=== PATIENT | male | born 1965 | race Caucasian/White ===

== ENCOUNTER 2017-01-07 22:03 | Emergency (ER) | payer BC ==
[~2017-01-07 22:03] MED LIST: AMIL5TAB15 PO; ASPEC81 PO; CARV25TA PO; CHOL100010 PO; CTP2 PO; HYDR50TA3 PO; NTRGSL/4 UT; TERA1CAP63 PO
[2017-01-07 22:06] VITALS: TEMP 36.7; Ht 177.8 cm
[2017-01-07] MEDS ORDERED: ASPI-232 PO (22:26)
[2017-01-07] MEDS ORDERED: CHOL1000 PO (22:26)
[2017-01-07] MEDS ORDERED: CLON0.2T PO (22:26)
--- NOTE | 2017-01-07 23:06 | EMERGENCY ROOM VISIT NOTE ---
History First contact with patient: 22:19 Chief Complaint: LEG PAIN,LEG INJURY Stated Complaint: SEVERE SHARP PAIN RIGHT THIGH History of Present Illness The patient is a 51 year old male who presents to the Emergency Room with complaints of Rt Hip pains for a few hrs prior to arrival. 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 Patient however did not feel significant pain until evening of arrival to ED where he had trouble getting up to walk and noticed 4/10 Rt hip pain in addition to some numbness and tingling of Rt foot. Patient reports being nauseous due to pain but it has since resolved. He has not taken any medication for pain. Review of Systems See HPI for pertinent positives & negatives. A total of 10 systems reviewed and were otherwise negative. Past Medical/Surgical History Medical Problems: (1) Chronic Kidney Disease, Stage Iii (Moderate) (2) DVT (deep venous thrombosis) (3) Hypertension Nos (4) Pneumonia Surgical Problems: (1) Aortocoronary Bypass Family History Heart disease Social History Smoking Status: Never Smoker Alcohol Use: none Marital Status: single Housing Status: lives with family Occupation Status: employed Current/Historical Medications Scheduled Amiloride Hcl (Amiloride Hcl), 5 MG PO BID Aspirin (Aspir-81), 1 TAB PO DAILY Carvedilol (Coreg), 25 MG PO BID Cholecalciferol (Vitamin D3), 1 TAB PO DAILY Clonidine Hcl (Catapres), 0.2 MG PO BID Hydrochlorothiazide (Hctz), 50 MG PO QAM Nitroglycerin (Nitrostat), 0.4 MG UT PRN Terazosin Hcl (Hytrin), 10 MG PO HS Allergies Coded Allergies: Hydralazine (Unverified Allergy, Severe, STIFF JOINTS, 01/07/17) Physical Exam Vital Signs Date Time Temp Pulse Resp B/P Pulse Ox O2 Delivery O2 Flow Rate FiO2 01/07/17 23:33 66 16 127/81 98 01/07/17 22:06 36.7 78 18 133/86 97 Room Air Physical Exam GENERAL: alert, well appearing, well nourished, no distress, non-toxic EYE EXAM: normal conjunctiva, PERRL and EOM's grossly intact OROPHARYNX: no exudate, no erythema, lips, buccal mucosa, and tongue normal and mucous membranes are moist NECK: supple, no nuchal rigidity, no adenopathy, non-tender LUNGS: Clear to auscultation. Normal chest wall mechanics HEART: no murmurs, S1 normal and S2 normal ABDOMEN: abdomen soft, non-tender, normo-active bowel sounds, no masses, no rebound or guarding. SKIN: no rashes and no bruising UPPER EXTREMITIES: upper extremities are grossly normal. LOWER EXTREMITIES: mild tenderness at Rt hipl, Rt mid thigh contusion NEURO EXAM: Normal sensorium, cranial nerves II-XII grossly intact, normal speech, no gross weakness of arms, no gross weakness of legs. Gross sensation intact. Medical Decision & Procedures Medical Decision 51 yo with injury to distal femur via hydraulic lift bucket a few day prior to arrival p/w with Rt hip pain Rt Leg pain, Lateral Mid Thigh contusion -comfortable, mild pain, does not want pain medication -XR Femur: No fracture or dislocation on preliminary read by myself and Dr. Marquez -Femur Fracture ruled out with XR Patient discharged with followup to PCP. Impression Primary Impression: Right leg pain Departure Information Dispostion Home / Self-Care Condition GOOD Referrals Artie Chaves MD (PCP) Patient Instructions My [facility] Resident Tracking Resident Involvement: Resident Care Provided Care Provided: Adult ED
--- NOTE | 2017-01-07 23:25 | EMERGENCY ROOM VISIT NOTE ---
History Report prepared by Janey: Justus Stubbs Under the Supervision of: Dr. Eric Hernandes D.O. First contact with patient: 22:19 Chief Complaint: LEG PAIN,LEG INJURY Stated Complaint: SEVERE SHARP PAIN RIGHT THIGH History of Present Illness The patient is a 51 year old male who presents to the Emergency Room with complaints of waxing and waning left upper leg pain beginning several hours prior to arrival. He currently rates his discomfort as a 4/10 in severity. 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 He denies experiencing any discomfort until today. As per family, the patient vomited after an episode of severe pain an hour ago. They note the patient experienced some right foot numbness when the pain in the upper left leg began to subside. The patient notes a history of a DVT. Source of History: patient Onset: several hours MANAGER WORK Position: leg (left upper) Symptom Intensity: 4/10 Timing: constant Associated Symptoms: + numbness (resolved right foot numbness), + vomiting Review of Systems See HPI for pertinent positives & negatives. A total of 10 systems reviewed and were otherwise negative. Past Medical & Surgical Medical Problems: (1) Chronic Kidney Disease, Stage Iii (Moderate) (2) DVT (deep venous thrombosis) (3) Hypertension Nos (4) Pneumonia Surgical Problems: (1) Aortocoronary Bypass Family History Heart disease Social History Smoking Status: Never Smoker Alcohol Use: none Marital Status: single Housing Status: lives with family Occupation Status: employed Current/Historical Medications Scheduled Amiloride Hcl (Amiloride Hcl), 5 MG PO BID Aspirin (Aspir-81), 1 TAB PO DAILY Carvedilol (Coreg), 25 MG PO BID Cholecalciferol (Vitamin D3), 1 TAB PO DAILY Clonidine Hcl (Catapres), 0.2 MG PO BID Hydrochlorothiazide (Hctz), 50 MG PO QAM Nitroglycerin (Nitrostat), 0.4 MG UT PRN Terazosin Hcl (Hytrin), 10 MG PO HS Allergies Coded Allergies: Hydralazine (Unverified Allergy, Severe, STIFF JOINTS, 01/07/17) Physical Exam Vital Signs Date Time Temp Pulse Resp B/P Pulse Ox O2 Delivery O2 Flow Rate FiO2 01/07/17 22:06 36.7 78 18 133/86 97 Room Air Physical Exam CONSTITUTIONAL/VITAL SIGNS: Reviewed / noted above. GENERAL: Non-toxic in appearance. INTEGUMENTARY: Warm, dry, and [place]. HEAD: Normocephalic. EYES: without scleral icterus or trauma. ENT/OROPHARYNX: clear and moist. LYMPHADENOPATHY/NECK: Is supple without lymphadenopathy or meningismus. RESPIRATORY: Lungs clear and equal. CARDIOVASCULAR: Regular rate and rhythm. GI/ABDOMEN: Soft and nontender. No organomegaly or pulsatile mass. No rebound or guarding. Normal bowel sounds. EXTREMITIES: Light ecchymosis to the right mid lateral thigh. No distal edema or calf tenderness. Good distal pulses, motor and sensory function. Warm and well perfused. BACK: No CVA tenderness. NEUROLOGICAL: Intact without focal deficits. PSYCHIATRIC: normal affect. MUSCULOSKELETAL: Normally developed with good muscle tone. Medical Decision & Procedures ER Provider Diagnostic Interpretation: X ray results and stated below per my interpretation. FEMUR XRAY: No fracture or dislocation. ED Course 2235: Patient was evaluated by the Check Writing Machine Operator, Dr. Deven Randhawa. 224: Previous medical records were reviewed. The patient was evaluated in room C12B. A complete history and physical examination was performed. 2325: On reevaluation, the patient is doing well. I discussed the results and findings with the patient. He verbalized agreement of the treatment plan. The patient was discharged home. Medical Decision Differential diagnosis: Etiologies such as fracture, dislocation, neurovascular compromise, compartment syndrome, soft tissue injury, as well as others were entertained. This is a 51-year-old male who presents the ED with a chief complaint of right side pain. The patient injured his right thigh couple of days ago work when a dumping cart struck him in the thigh. The patient has continued discomfort and had some spasmodic pain tonight. He came in for evaluation tonight. His symptoms have improved. The patient has evidence of a light ecchymotic area in his right anterior lateral thigh. This is consistent with his injury and a contusion. There is no evidence of DVT or neurovascular injury distal. An x- ray did not show fracture. The patient was felt to be stable for discharge. Impression Primary Impression: Contusion of thigh, right Scribe Attestation The scribe's documentation has been prepared under my direction and personally reviewed by me in its entirety. I confirm that the note above accurately reflects all work, treatment, procedures, and medical decision making performed by me. Departure Information Dispostion Home / Self-Care Referrals Artie Chaves MD (PCP) Patient Instructions My [facility]
[2017-01-07 23:33] VITALS: BP 127/81; PULSE 66; O2SAT 98
--- NOTE | 2017-01-08 06:09 | DIAGNOSTIC IMAGING REPORT ---
RIGHT FEMUR 2 VIEWS ROUTINE CLINICAL HISTORY: Right femur pain. COMPARISON: None. DISCUSSION: No acute fractures are visualized. There are osteoarthritic changes present within the knee. No destructive lesions are evident. IMPRESSION: No fractures identified. Electronically signed by: Yasmany Sidhu M.D. 01/08/2017 6:07 AM Dictated Date/Time: 01/08/2017 6:06 AM
== END 2017-01-07 23:33 | disposition home or self-care (01) ==
LOC: C.EDB 22:04 → C.EDC 23:33
DX: M25.551 Pain in right hip (principal); S70.11XA Contusion of right thigh, initial encounter; W24.0XXA Contact with lifting devices, not elsewhere classified, initial encounter; Y99.0 Civilian activity done for income or pay; I12.9 Hypertensive chronic kidney disease with stage 1 through stage 4 chronic kidney disease, or unspecified chronic kidney disease; N18.3 Chronic kidney disease, stage 3 (moderate); Z95.1 Presence of aortocoronary bypass graft; Z86.718 Personal history of other venous thrombosis and embolism

== ENCOUNTER 2019-01-07 07:42 | Inpatient (IN) ==
[2019-01-07] MEDS ORDERED: PIPERACILLIN/TAZOBACTAM 4.5 GM/120 ML BAG IV STA (08:22)
[2019-01-07] MEDS ORDERED: SODIUM CHLORIDE 0.9% 500 ML IV SCH (08:30)
[2019-01-07 09:02] LABS: Basophils # (auto) 0.03 K/uL (0-0.2); Basophils % (auto) 0.4 %; Eosinophils # (auto) 0.17 K/uL (0-0.5); Eosinophils % (auto) 2.4 %; Hematocrit (blood only) 32.1 % (42-52); Hemoglobin 10.5 g/dL (14.0-18.0); Immature Granulocytes # (auto) 0.02 K/uL (0.00-0.02); Immature Granulocytes % (auto) 0.3 %; Lymphocytes # (auto) 0.92 K/uL (1.2-3.4); Mean Corpuscular Hgb Conc 32.7 g/dL (32-36); Mean Platelet Volume 9.3 fL (7.4-10.4); Monocytes # (auto) 0.66 K/uL (0.11-0.59); Monocytes % (auto) 9.3 %; Neutrophils # (auto) 5.27 K/uL (1.4-6.5); Neutrophils % (auto) 74.6 %; Platelet Count 208 K/uL (130-400); RDW Coefficient of Variation 16.5 % (11.5-14.5); RDW Standard Deviation 59.3 fL (36.4-46.3); Red Blood Count 3.21 M/uL (4.7-6.1); White Blood Count 7.07 K/uL (4.8-10.8)
[2019-01-07 09:27] LABS: Albumin Globulin Ratio 0.8 (0.9-2); Albumin Level 3.3 gm/dl (3.4-5.0); BUN Creatinine Ratio 7.9 (10-20); Bilirubin,Total 0.4 mg/dl (0.2-1); Calcium 9.1 mg/dl (8.5-10.1); Creatinine Clr Calc Pharmacy 18.7 ml/min; Est GFR (African American) 11.8; Est GFR (Non-African American) 10.2; Potassium 3.9 mmol/L (3.5-5.1); Total Protein 7.3 gm/dl (6.4-8.2)
[2019-01-07] MEDS ORDERED: PIPERACILL/TAZOBAC CONSULT ACTIVE PRN (10:07)
[2019-01-07] MEDS ORDERED: PIPERACILLIN/TAZOBACTAM 4.5 GM in DEXTROSE 5% 100 ML IV STA (10:07)
--- NOTE | 2019-01-07 10:23 | History & Physical Report ---
Date of Service January 07, 2019 Assessment & Plan (1) Cellulitis of left lower extremity: Noted to have cellulitis of the left lower extremity 3 days back Was in the ER with the negative x-ray and was given intravenous Dalvance Follow-up today in the emergency room showed worsening cellulitis He was admitted to hospital for continuation of care of worsening cellulitis No increase in white count and no fever and/or chills We will give Zosyn intravenously now and will not repeat intravenous Dalvance now as because its prolonged half-life. ID consult for further management Present on Admission?: Yes (2) Failure of outpatient treatment: Received intravenous tolerance 3 days ago Cellulitis is worse compared with pretreatment with Dalvance (3) End stage renal disease: Has been in the hemodialysis 3 times a week Next dialysis tomorrow Nephrology consult to continue dialysis (4) CAD (coronary artery disease) of artery bypass graft: History of CAD status post bypass graft and also history of AV fistula Continue with current medications Does not have any acute symptoms Other medical conditions of hypertension, hyperlipidemia, history of gastric ulcer, hyperparathyroidism remains stable We will continue outpatient medications DVT prophylaxis Subcu heparin CODE STATUS Full code History of Present Illness Chief Complaint: Worsening left leg cellulitis Primary Care Provider: Artie Chaves MD He is a 53-year-old obese male with significant past medical history of CAD status post aortocoronary bypass, end-stage renal disease on hemodialysis, history of AV fistula, hypertension, hyperlipidemia hyperparathyroidism secondary and history of drug-induced lupus has been in ER as a follow-up of left leg cellulitis which was treated with intravenous Dalvance 3 days ago. Her leg wounds looked worse with new area of redness and worsening infection as per ER physician's assessment. He complains to have some discomfort in left leg but does not have any swelling in the groin or any fever and/or chills. He is blood counts were unremarkable and he has had hemodialysis yesterday. He denies any chest pain, shortness of breath, palpitation, any abdominal pain, nausea and/or vomiting. He was admitted to medical floor for worsening of left leg cellulitis and a possible failure of intravenous Dalvance. Allergies Allergy/AdvReac Type Severity Reaction Status Date / Time hydralazine Allergy Severe STIFF Unverified 01/07/19 08:52 JOINTS Home Medications Home Medications Medication Instructions Recorded Confirmed Type aspirin [Aspirin Low Dose] 81 mg PO QAM 07/10/18 01/07/19 History carvedilol [Coreg] 50 mg PO BID 07/10/18 01/07/19 History cholecalciferol (vitamin D3) 1,000 unit PO QAM 07/10/18 01/07/19 History [Vitamin D3] clonidine HCl 0.2 mg PO BID 07/10/18 01/07/19 History isosorbide mononitrate 30 mg PO HS 07/10/18 01/07/19 History nitroglycerin [Nitrostat] 1 dose SUBLINGUAL UD PRN 07/10/18 01/07/19 History rosuvastatin [Crestor] 10 mg PO HS 07/10/18 01/07/19 History albuterol sulfate [ProAir HFA] 2 puff INHALATION Q4H PRN 01/02/19 01/07/19 History loratadine 10 mg PO QAM 01/02/19 01/07/19 History losartan 50 mg PO QAM 01/02/19 01/07/19 History omega [id number]-fish oil [Fish Oil] 1 cap PO QAM 01/02/19 01/07/19 History Past Med/Surg History Medical History Anemia CHRONIC; BASELINE HGB 10'S PER CHART REVIEW CAD (coronary artery disease) S/P CABG X 3 (2008) Chronic kidney disease STAGE 5- PLAN FOR FUTURE DIALYSIS; NO PRIOR DIALYSIS Deep vein thrombosis LLE DVT 2016; NO ISSUES SINCE History of gastric ulcer PER RECORDS Hyperlipidemia Hypertension Inflammatory arthritis Myocardial Infarction 2008 Obesity Surgical History H/O eye surgery AN INFANT FOR STRABISMUS History of cardiac cath S/P CABG X 3 (2008)= CASAREZ-LAD, SVG-OM2, SVG-OM3 2017= PATENT BYPASS GRAFTS History of carpal tunnel release LEFT History of colonoscopy History of coronary artery bypass graft S/P CABG X 3 (2008): CASAREZ-LAD, SVG-OM2, SVG-OM3 History of esophagogastroduodenoscopy (EGD) History of herniorrhaphy INGUINAL HERNIA REPAIR History of tonsillectomy Family History Father Family history of diabetes mellitus Social History Preferred Language: Luxembourgish Communication Ability: Effective Beliefs That Will Affect Care: None Current Living Situation: Parent and Significant Other Other Information That Helps Us Care for You: No Feels Safe at Home: Yes Safety Concerns: Feels Safe At This Time Smoking Status: Never smoker Hx Alcohol Use: No Hx Substance Use: No Review of Systems All systems reviewed & are unremarkable except as noted in HPI & below Physical Exam Vital Signs (Past 24 Hours): Last Vital Signs Temp 37 C 01/07/19 07:45 Pulse 79 01/07/19 07:45 Resp 18 01/07/19 07:45 BP 165/97 H 01/07/19 07:45 Pulse Ox 100 01/07/19 07:45 Physical Exam: Lying in bed without any discomfort Constitutional: WD/WN, vitals as above well developed Eyes: PERRL, conjunctivae normal, anicteric sclerae ENMT: external ear and nose normal, oropharynx normal Neck: trachea midline, no thyromegaly Respiratory: normal respiratory effort Auscultation: lungs clear to auscultation bilaterally Cardiovascular: Rate/Rhythm: regular rate and regular rhythm Heart Sounds: normal S1, normal S2 and + murmur (2/6 ejection systolic murmur over precordium) Gastrointestinal (Abdomen): Inspection/Auscultation: abdomen normal to inspection and normal bowel sounds Percussion/Palpation: abdomen soft; abdomen nontender Musculoskeletal: Extremities: + lower extremity abnormal to inspection (Left lower leg including foot has swelling with patches of redness as an picture) Left Neurologic: Alert, awake and oriented x3 Results & Data Laboratory Results Short CBC 01/07/19 Range/Units 08:42 WBC 7.07 (4.8-10.8) K/uL Hgb 10.5 L (14.0-18.0) g/dL Hct 32.1 L (42-52) % Plt Count 208 (130-400) K/uL BMP 01/07/19 08:42 Sodium 137 Potassium 3.9 Chloride 98 Carbon Dioxide 31 BUN 44 H Creatinine 5.76 H* Glucose 102 H Calcium 9.1 Liver Function 01/07/19 Range/Units 08:42 Total Bilirubin 0.4 (0.2-1) mg/dl AST 17 (15-37) U/L ALT 30 (12-78) U/L Alkaline Phosphatase 97 (45-117) U/L Albumin 3.3 L (3.4-5.0) gm/dl Medications Administered Current Inpatient Medications Heparin Sodium (Porcine) (Heparin Sodium (Porcine)) 5,[address] Stop: 02/06/19 13:59 Piperacillin Sod/Tazobactam (Sod 4.5 gm/ Dextrose) 120 mls @ 30 mls/hr IV Q8H STA Stop: 01/07/19 14:06 Miscellaneous Information (Consult) 1 ea N/A UD PRN PRN Reason: Consult Stop: 02/06/19 10:06 Code Status & VTE Plan Code Status Full code
[2019-01-07] MEDS ORDERED: NITROGLYCERIN SL 0.4 MG/TAB TAB SL PRN (11:10)
[2019-01-07] MEDS ORDERED: ALBUTEROL HFA 8 GM INHALER INH PRN (11:10)
[2019-01-07] MEDS ORDERED: HYDROmorphone INJ 0.5 MG/0.5 ML SYR ONE (11:41)
[2019-01-07 12:41] LABS: Prothrombin Time 10.6 Seconds (9.0-12.0)
[2019-01-07] MEDS: ASPIRIN 81 MG ECTAB PO SCH (12:52)
[2019-01-07] MEDS: LOSARTAN POTASSIUM 50 MG TAB PO SCH (12:52)
[2019-01-07] MEDS: CARVEDILOL 25 MG TAB PO SCH ×2 (12:52→20:50)
[2019-01-07] MEDS: cloNIDine HCl 0.1 MG TAB PO SCH ×2 (12:52→20:49)
[2019-01-07] MEDS: HEPARIN SOD 5,000 UNIT/0.5 ML VIAL SQ SCH ×2 (14:25→20:49)
--- NOTE | 2019-01-07 14:38 | Emergency Department Note ---
Entered by Eugenio Quevedo acting as a scribe for History of Present Illness General Chief complaint: Foot Injury/Pain Stated complaint: FOOT PAIN Source: patient History of Present Illness Provider complaint: Left foot rash/pain Onset (ago): week(s) 1 Location: lower extremity and left Pain Consistency: + constant and + intermittent Maximum Pain Intensity: 10 Relieved By: + none Associated symptoms: + diaphoresis, + fever/chills and + rash The patient is a 53 year old male who presents to the Emergency Room with complaints of constant left foot pain and rash that started about a week ago. The patient was here when the symptoms first started and was placed on IV Rocephin and discharged with Keflex and Doxycycline. The patient then returned 3 days ago and received a Dalvance shot and told to follow up 3 days after. Since the shot, his rash and the pain has gotten worse. The patient has also had a subjective fever with intermittent diaphoretic spells and he also had some dry heaving when the symptoms first began. Home Medications Home Medications Medication Instructions Recorded Confirmed Type aspirin [Aspirin Low Dose] 81 mg PO QAM 07/10/18 01/07/19 History carvedilol [Coreg] 50 mg PO BID 07/10/18 01/07/19 History cholecalciferol (vitamin D3) 1,000 unit PO QAM 07/10/18 01/07/19 History [Vitamin D3] clonidine HCl 0.2 mg PO BID 07/10/18 01/07/19 History isosorbide mononitrate 30 mg PO HS 07/10/18 01/07/19 History nitroglycerin [Nitrostat] 1 dose SUBLINGUAL UD PRN 07/10/18 01/07/19 History rosuvastatin [Crestor] 10 mg PO HS 07/10/18 01/07/19 History albuterol sulfate [ProAir HFA] 2 puff INHALATION Q4H PRN 01/02/19 01/07/19 History loratadine 10 mg PO QAM 01/02/19 01/07/19 History losartan 50 mg PO QAM 01/02/19 01/07/19 History omega 1-ymx-shr-fish oil [Fish Oil] 1 cap PO QAM 01/02/19 01/07/19 History Allergies Allergy/AdvReac Type Severity Reaction Status Date / Time hydralazine Allergy Intermediate STIFF Verified 01/07/19 14:01 JOINTS Past Med/Surg History Medical History Anemia CHRONIC; BASELINE HGB 10'S PER CHART REVIEW CAD (coronary artery disease) S/P CABG X 3 (2008) Chronic kidney disease STAGE 5- PLAN FOR FUTURE DIALYSIS; NO PRIOR DIALYSIS Deep vein thrombosis LLE DVT 2016; NO ISSUES SINCE History of gastric ulcer PER RECORDS Hyperlipidemia Hypertension Inflammatory arthritis Myocardial Infarction 2008 Obesity Surgical History H/O eye surgery AN INFANT FOR STRABISMUS History of cardiac cath S/P CABG X 3 (2008)= CASAREZ-LAD, SVG-OM2, SVG-OM3 2016= PATENT BYPASS GRAFTS History of carpal tunnel release LEFT History of colonoscopy History of coronary artery bypass graft S/P CABG X 3 (2008): CASAREZ-LAD, SVG-OM2, SVG-OM3 History of esophagogastroduodenoscopy (EGD) History of herniorrhaphy INGUINAL HERNIA REPAIR History of tonsillectomy Family History Father Family history of diabetes mellitus Social History Preferred Language: Malagasy Communication Ability: Effective Beliefs That Will Affect Care: None Current Living Situation: Parent and Significant Other Other Information That Helps Us Care for You: No Feels Safe at Home: Yes Safety Concerns: Feels Safe At This Time Smoking Status: Never smoker Hx Alcohol Use: No Hx Substance Use: No Review of Systems See HPI for pertinent positives & negatives. and A total of 10 systems reviewed and were otherwise negative Physical Exam Vital Signs Vital Signs - 24 hr 01/07/19 23:46 01/08/19 07:05 01/08/19 14:10 Temperature 36.8 C 36.7 C 37.2 C Temperature Source Oral Oral Oral Pulse Rate Pulse Rate [Right Brachial] 63 Pulse Rate [Right Finger] 79 76 Pulse Rhythm [Right Brachial] Regular Respiratory Rate 18 18 Blood Pressure - Lying 120/74 Blood Pressure Blood Pressure [Right Arm] 154/80 H 154/85 H Blood Pressure Mean [Right Arm] 104 108 Blood Pressure Position Blood Pressure Position [Right Arm] Lying Lying Pulse Oximetry 97 98 Oxygen Delivery Method Room Air Room Air 01/08/19 14:20 01/08/19 14:43 01/08/19 15:00 Temperature Temperature Source Pulse Rate 66 65 65 Pulse Rate [Right Brachial] Pulse Rate [Right Finger] Pulse Rhythm [Right Brachial] Respiratory Rate Blood Pressure - Lying Blood Pressure 129/74 133/81 139/85 Blood Pressure [Right Arm] Blood Pressure Mean [Right Arm] Blood Pressure Position Lying Lying Lying Blood Pressure Position [Right Arm] Pulse Oximetry Oxygen Delivery Method 01/08/19 15:20 01/08/19 15:40 01/08/19 16:00 Temperature Temperature Source Pulse Rate 64 65 66 Pulse Rate [Right Brachial] Pulse Rate [Right Finger] Pulse Rhythm [Right Brachial] Respiratory Rate Blood Pressure - Lying Blood Pressure 144/89 H 149/87 H 158/93 H Blood Pressure [Right Arm] Blood Pressure Mean [Right Arm] Blood Pressure Position Lying Lying Lying Blood Pressure Position [Right Arm] Pulse Oximetry Oxygen Delivery Method Vital signs reviewed. General: Well-appearing 53 year old male, in no significant distress. HEENT: No scleral icterus, PERRLA, neck supple. Atraumatic. Cardiovascular: Regular rate and rhythm, no extra sounds. Pulmonary: Clear to auscultation bilaterally, normal work of breathing. Abdomen: Soft, nontender, nondistended, positive bowel sounds. Musculoskeletal: Atraumatic, no peripheral edema. Neurologic: Patient awake alert and oriented x 3 Skin: Warm. New [id number] rash noted on the medial malleolus of the left ankle. Another rash at [id number] on the lateral aspect of the lower leg. [id number] rash on the dorsum aspect of the left foot. Course 0810: The patient was evaluated in room A12B, and a complete history and physical examination were performed. 0845: I reevaluated the patient and updated him on the treatment plan. 0856: I spoke with Dr. Yvette Solis about the patient's case and he is going to accept him for further evaluation. Consultations Consultation #1: I spoke with Dr. Yvette Solis about the patient's case and he is going to accept him for further evaluation. Time: 08:56 Administered Medications Hydrocodone Bitart/Acetaminophen ([place] 5/325) 1 tab PO Q8H PRN PRN Reason: Pain Stop: 01/22/19 13:05 Last Admin: 01/08/19 13:47 Dose: 1 tab Documented by: [id number] Aspirin (Ecotrin Ectab) [address] [facility] Stop: 02/06/19 11:09 Last Admin: 01/08/19 08:24 Dose: 81 mg Documented by: [id number] Admin: 01/07/19 12:52 Dose: Not Given Documented by: [id number] Carvedilol (Coreg) [address] [facility] Stop: 02/06/19 11:59 Last Admin: 01/08/19 08:24 Dose: 50 mg Documented by: [id number] Admin: 01/07/19 20:50 Dose: 50 mg Documented by: [id number] Admin: 01/07/19 12:52 Dose: Not Given Documented by: [id number] Clonidine HCl (Catapres) 0.[address] [facility] Stop: 02/06/19 11:59 Last Admin: 01/08/19 08:24 Dose: 0.2 mg Documented by: [id number] Admin: 01/07/19 20:49 Dose: 0.2 mg Documented by: [id number] Admin: 01/07/19 12:52 Dose: Not Given Documented by: [id number] Fish Oil ([place]-3 (Purified Fish Oil)) [facility] [place]: 02/07/19 08:59 Last Admin: 01/08/19 08:24 Dose: 1 gm Documented by: [id number] Heparin Sodium (Porcine) (Heparin Sodium (Porcine)) 5,[address] [facility] Stop: 02/06/19 13:59 Last Admin: 01/08/19 12:38 Dose: 5,000 units Documented by: [id number] Cosigned by: [id number] Admin: 01/08/19 05:37 Dose: 5,000 units Documented by: [id number] Cosigned by: [id number] Admin: 01/07/19 20:49 Dose: 5,000 units Documented by: [id number] Cosigned by: [id number] Admin: 01/07/19 14:25 Dose: 5,000 units Documented by: [id number] Cosigned by: [id number] Hydromorphone HCl (Dilaudid) 0.5 mg IV Q3H PRN PRN Reason: Pain Stop: 01/21/19 11:37 Last Admin: 01/08/19 09:35 Dose: 0.5 mg Documented by: [id number] Admin: 01/08/19 05:37 Dose: 0.5 mg Documented by: [id number] Admin: 01/07/19 20:48 Dose: 0.5 mg Documented by: [id number] Admin: 01/07/19 16:37 Dose: 0.5 mg Documented by: [id number] Piperacillin Sod/Tazobactam (Sod 4.5 gm/ Dextrose) 120 mls @ 30 mls/hr IV Q12H [facility]; Protocol Stop: 01/17/19 17:59 Last Infusion: 01/08/19 09:37 Dose: 0 mls/hr Documented by: [id number] Admin: 01/08/19 05:36 Dose: 30 mls/hr Documented by: [id number] Infusion: 01/07/19 22:46 Dose: 0 mls/hr Documented by: [id number] Admin: 01/07/19 18:07 Dose: 30 mls/hr Documented by: [id number] Isosorbide Mononitrate (Imdur Extended Rel) 30 mg PO [facility] Stop: 02/06/19 20:59 Last Admin: 01/07/19 20:49 Dose: 30 mg Documented by: [id number] Lactobacillus Acidophilus (Floranex) 4 [facility] [place]: 02/06/19 16:59 Last Admin: 01/08/19 12:38 Dose: 4 tab Documented by: [id number] Admin: 01/08/19 08:25 Dose: 4 tab Documented by: [id number] Admin: 01/07/19 17:33 Dose: 4 tab Documented by: [id number] Loratadine (Claritin) 10 mg PO [facility] Stop: 02/07/19 08:59 Last Admin: 01/08/19 08:24 Dose: 10 mg Documented by: [id number] Losartan Potassium (Cozaar) 50 mg PO [facility] Stop: 02/06/19 11:09 Last Admin: 01/08/19 08:24 Dose: 50 mg Documented by: [id number] Admin: 01/07/19 12:52 Dose: Not Given Documented by: [id number] Rosuvastatin Calcium (Crestor) 10 mg PO [facility] Stop: 02/06/19 20:59 Last Admin: 01/07/19 20:49 Dose: 10 mg Documented by: [id number] Vitamin D (Vitamin D3) 1,000 units PO [facility] Stop: 02/07/19 08:59 Last Admin: 01/08/19 08:25 Dose: 1,000 units Documented by: [id number] Discontinued Medications Hydromorphone HCl (Dilaudid) Confirm Administered Dose 0.5 mg .ROUTE .STK-MED ONE Stop: 01/07/19 11:42 Last Admin: 01/07/19 11:42 Dose: 0.5 mg Documented by: [id number] Piperacillin Sod/Tazobactam Sod (Zosyn) 4.5 gm in 120 mls @ 200 mls/hr IV NOW STA Stop: 01/07/19 08:57 Last Infusion: 01/07/19 10:42 Dose: 0 mls/hr Documented by: [id number] Admin: 01/07/19 09:39 Dose: 200 mls/hr Documented by: [id number] Sodium Chloride (Nss) 500 mls @ 999 mls/hr IV .Q[address] Stop: 01/07/19 09:00 Last Infusion: 01/07/19 10:42 Dose: 0 mls/hr Documented by: [id number] Admin: 01/07/19 09:39 Dose: 999 mls/hr Documented by: [id number] Medical Decision Making Differential Diagnosis Differential diagnosis includes etiologies such as cellulitis, abscess, MRSA infection, DVT, necrotizing fasciitis, dermatitis, drug eruption, as well as others were entertained. Medical Records Attestation: I reviewed the patient's medical records. Home Medications Current Medication List: was personally reviewed by me Laboratory Data Attestation: I reviewed the patient's lab results. Result diagrams: 01/08/19 05:35 01/08/19 05:35 Lab Results 01/07/19 01/07/19 01/07/19 Range/Units 08:40 08:42 08:42 WBC 7.07 (4.8-10.8) K/uL RBC 3.21 L (4.7-6.1) M/uL Hgb 10.5 L (14.0-18.0) g/dL Hct 32.1 L (42-52) % MCV 100.0 (80-100) fL MCH 32.7 (25-34) pg MCHC 32.7 (32-36) g/dL RDW Std Deviation 59.3 H (36.4-46.3) fL RDW Coeff of Adam 16.5 H (11.5-14.5) % Plt Count 208 (130-400) K/uL MPV 9.3 (7.4-10.4) fL Immature Gran % (Auto) 0.3 % Neut % (Auto) 74.6 % Lymph % (Auto) 13.0 % [place] % (Auto) 9.3 % Eos % (Auto) 2.4 % Baso % (Auto) 0.4 % Immature Gran # (Auto) 0.02 (0.00-0.02) K/uL Neut # (Auto) 5.27 (1.4-6.5) K/uL Lymph # (Auto) 0.92 L (1.2-3.4) K/uL [place] # (Auto) 0.66 H (0.11-0.59) K/uL Eos # (Auto) 0.17 (0-0.5) K/uL Baso # (Auto) 0.03 (0-0.2) K/uL PT 10.6 (9.0-12.0) Seconds INR 1.0 (0.9-1.1) Sodium (136-145) mmol/L Potassium (3.5-5.1) mmol/L Chloride (98-107) mmol/L Carbon Dioxide (21-32) mmol/L Anion Gap (3-11) BUN (7-18) mg/dl Creatinine (0.6-1.4) mg/dl Est Cr Clr Drug Dosing ml/min Est GFR ( Amer) Est GFR (Non-Af Amer) BUN/Creatinine Ratio (10-20) Glucose (70-99) mg/dl Lactate 1.3 (0.4-2.0) mmol/L Calcium (8.5-10.1) mg/dl Magnesium (1.8-2.4) mg/dl Total Bilirubin (0.2-1) mg/dl AST (15-37) U/L ALT (12-78) U/L Alkaline Phosphatase (45-117) U/L Total Protein (6.4-8.2) gm/dl Albumin (3.4-5.0) gm/dl Globulin (2.5-4.0) gm/dl Albumin/Globulin Ratio (0.9-2) 01/07/19 01/08/19 01/08/19 Range/Units 08:42 05:35 05:35 WBC 7.19 (4.8-10.8) K/uL RBC 3.17 L (4.7-6.1) M/uL Hgb 10.2 L (14.0-18.0) g/dL Hct 31.4 L (42-52) % MCV 99.1 (80-100) fL MCH 32.2 (25-34) pg MCHC 32.5 (32-36) g/dL RDW Std Deviation 58.6 H (36.4-46.3) fL RDW Coeff of Adam 16.6 H (11.5-14.5) % Plt Count 216 (130-400) K/uL MPV 9.5 (7.4-10.4) fL Immature Gran % (Auto) 0.4 % Neut % (Auto) 67.9 % Lymph % (Auto) 18.4 % [place] % (Auto) 10.0 % Eos % (Auto) 2.6 % Baso % (Auto) 0.7 % Immature Gran # (Auto) 0.03 H (0.00-0.02) K/uL Neut # (Auto) 4.88 (1.4-6.5) K/uL Lymph # (Auto) 1.32 (1.2-3.4) K/uL [place] # (Auto) 0.72 H (0.11-0.59) K/uL Eos # (Auto) 0.19 (0-0.5) K/uL Baso # (Auto) 0.05 (0-0.2) K/uL PT (9.0-12.0) Seconds INR (0.9-1.1) Sodium 137 138 (136-145) mmol/L Potassium 3.9 4.0 (3.5-5.1) mmol/L Chloride 98 101 (98-107) mmol/L Carbon Dioxide 31 28 (21-32) mmol/L Anion Gap 8.0 9.0 (3-11) BUN 44 H 54 H (7-18) mg/dl Creatinine 5.76 H* 6.54 H* D (0.6-1.4) mg/dl Est Cr Clr Drug Dosing 18.7 16.4 ml/min Est GFR ( Amer) 11.8 10.1 Est GFR (Non-Af Amer) 10.2 8.7 BUN/Creatinine Ratio 7.9 L 8.3 L (10-20) Glucose 102 H 91 (70-99) mg/dl Lactate (0.4-2.0) mmol/L Calcium 9.1 8.7 (8.5-10.1) mg/dl Magnesium 2.1 (1.8-2.4) mg/dl Total Bilirubin 0.4 (0.2-1) mg/dl AST 17 (15-37) U/L ALT 30 (12-78) U/L Alkaline Phosphatase 97 (45-117) U/L Total Protein 7.3 (6.4-8.2) gm/dl Albumin 3.3 L (3.4-5.0) gm/dl Globulin 4.0 (2.5-4.0) gm/dl Albumin/Globulin Ratio 0.8 L (0.9-2) Blood Pressure Blood Pressure Findings: Elevated blood pressure Blood Pressure Disposition: further management by hospitalist MDM Narrative This patient was evaluated and appeared to be in no significant distress. Physical examination is consistent with a left lower extremity cellulitis. Upon my review of the pictures from the initial treatment day, it seems that the patient's cellulitis has progressed. A new spot has developed along the medial malleolus. There is some lymphangitic streaking behind the knee. There is no open wound or drainage. Patient was covered with IV Zosyn. His WBC has improved from several days ago. He is afebrile. Given his multiple comorbidities, his failed initial outpatient treatment and the Dalvance treatment, the patient was discussed with the hospitalist who will evaluate the patient for further management. Impression & Plan Cellulitis of left leg, Failure of outpatient treatment Discharge Plan Visit Data *Final* Discharge Date/Time: 01/07/19 10:58 Chief Complaint: Foot Injury/Pain Stated Complaint: FOOT PAIN ED Provider: Jillian Knox Discharge Problem: Cellulitis of left leg, Failure of outpatient treatment Patient Disposition: Admitted As Inpatient Discharge Instructions Interventions: ED Discharge Assessment Last Done: 01/07/19 10:58 The scribe's documentation has been prepared under my direction and personally reviewed by me in its entirety. I confirm that the note above accurately reflects all work, treatment, procedures, and medical decision making performed by me.
[2019-01-07] MEDS: HYDROmorphone INJ 0.5 MG/0.5 ML SYR IV PRN ×2 (16:37→20:48)
[2019-01-07] MEDS: LACTOBACILLUS ACIDOPHILUS (FLORANEX) TAB PO SCH (17:33)
[2019-01-07] MEDS: PIPERACILLIN/TAZOBACTAM 4.5 GM in DEXTROSE 5% 100 ML IV SCH (18:07)
[2019-01-07] MEDS: ISOSORBIDE MONO EXTENDED REL 30 MG TABCR PO SCH (20:49)
[2019-01-07] MEDS: ROSUVASTATIN CALCIUM 10 MG TAB PO SCH (20:49)
[2019-01-08] MEDS: PIPERACILLIN/TAZOBACTAM 4.5 GM in DEXTROSE 5% 100 ML IV SCH ×2 (05:36→18:53)
[2019-01-08] MEDS: HYDROmorphone INJ 0.5 MG/0.5 ML SYR IV PRN ×2 (05:37→09:35)
[2019-01-08] MEDS: HEPARIN SOD 5,000 UNIT/0.5 ML VIAL SQ SCH ×3 (05:37→21:56)
[2019-01-08 06:26] LABS: Basophils # (auto) 0.05 K/uL (0-0.2); Basophils % (auto) 0.7 %; Eosinophils # (auto) 0.19 K/uL (0-0.5); Eosinophils % (auto) 2.6 %; Hematocrit (blood only) 31.4 % (42-52); Hemoglobin 10.2 g/dL (14.0-18.0); Immature Granulocytes # (auto) 0.03 K/uL (0.00-0.02); Immature Granulocytes % (auto) 0.4 %; Lymphocytes # (auto) 1.32 K/uL (1.2-3.4); Lymphocytes % (auto) 18.4 %; Mean Corpuscular Hgb Conc 32.5 g/dL (32-36); Mean Corpuscular Volume 99.1 fL (80-100); Mean Platelet Volume 9.5 fL (7.4-10.4); Monocytes # (auto) 0.72 K/uL (0.11-0.59); Neutrophils # (auto) 4.88 K/uL (1.4-6.5); Neutrophils % (auto) 67.9 %; Platelet Count 216 K/uL (130-400); RDW Coefficient of Variation 16.6 % (11.5-14.5); RDW Standard Deviation 58.6 fL (36.4-46.3); Red Blood Count 3.17 M/uL (4.7-6.1); White Blood Count 7.19 K/uL (4.8-10.8)
[2019-01-08 06:53] LABS: BUN Creatinine Ratio 8.3 (10-20); Calcium 8.7 mg/dl (8.5-10.1); Creatinine Clr Calc Pharmacy 16.4 ml/min; Est GFR (African American) 10.1; Est GFR (Non-African American) 8.7; Magnesium 2.1 mg/dl (1.8-2.4)
[2019-01-08] MEDS: LORATADINE 10 MG TAB PO SCH (08:24)
[2019-01-08] MEDS: OMEGA-3 (PURIFIED FISH OIL) 1 GM CAP PO SCH (08:24)
[2019-01-08] MEDS: ASPIRIN 81 MG ECTAB PO SCH (08:24)
[2019-01-08] MEDS: CARVEDILOL 25 MG TAB PO SCH ×2 (08:24→20:46)
[2019-01-08] MEDS: cloNIDine HCl 0.1 MG TAB PO SCH ×2 (08:24→20:46)
[2019-01-08] MEDS: LOSARTAN POTASSIUM 50 MG TAB PO SCH (08:24)
[2019-01-08] MEDS: CHOLECALCIFEROL 1,000 UNITS TAB PO SCH (08:25)
[2019-01-08] MEDS: LACTOBACILLUS ACIDOPHILUS (FLORANEX) TAB PO SCH ×3 (08:25→18:44)
[2019-01-08] MEDS ORDERED: SODIUM CHLORIDE 0.9% 1000ML 1,000 ML IV PRN (08:33)
--- NOTE | 2019-01-08 10:28 | Infectious Disease Consult ---
Date of Consultation January 08, 2019 Assessment & Plan (1) Cellulitis: leg appears to have improved when compared to photo from last week prior to Dalvance in ER. can continue zosyn pending blood cultures, 01/02 cultures remain negative. would suggest second dose of Dalvance upon d/c from hospital. If cultures negative could transitions zosyn to po levaquin (renally dosed) for 14 days. elevate leg to assist with edema. History of Present Illness Attending Physician: Isac Ray MD pt admitted with increased left leg cellulitis. was being treated with keflex and doxy at home, no improvement, came to ER on 01/02, dopplers negative blood culures negative, wbc nml. was given Dalvance and d/c home. He has picture on his cell phone of appearance of left leg at time of Dalvance dose - noted to have significant erythema over ant calf. no open wounds noted on picture. [place] no improvement and returned to ER on 01/07. wbc 7.1, afebrile, creat 6. Was started on zoysn, no previous gram negative coverage. no additional gpc coverage added due to Dalvance dose last week. He denies f/c. denies trauma to area, no new wounds, no bleeding or drainge. no abd pain, no n/v/d, tolerating abx. no cp, sob, cough. states increased swelling in leg, states pain is 10/10 but appears comfortable on exam. able to walk. Allergies Allergy/AdvReac Type Severity Reaction Status Date / Time hydralazine Allergy Intermediate STIFF Verified 01/07/19 14:01 JOINTS Home Medications Home Medications Medication Instructions Recorded Confirmed Type aspirin [Aspirin Low Dose] 81 mg PO QAM 07/10/18 01/07/19 History carvedilol [Coreg] 50 mg PO BID 07/10/18 01/07/19 History cholecalciferol (vitamin D3) 1,000 unit PO QAM 07/10/18 01/07/19 History [Vitamin D3] clonidine HCl 0.2 mg PO BID 07/10/18 01/07/19 History isosorbide mononitrate 30 mg PO HS 07/10/18 01/07/19 History nitroglycerin [Nitrostat] 1 dose SUBLINGUAL UD PRN 07/10/18 01/07/19 History rosuvastatin [Crestor] 10 mg PO HS 07/10/18 01/07/19 History albuterol sulfate [ProAir HFA] 2 puff INHALATION Q4H PRN 01/02/19 01/07/19 History loratadine 10 mg PO QAM 01/02/19 01/07/19 History losartan 50 mg PO QAM 01/02/19 01/07/19 History omega 5-tqy-iyo-fish oil [Fish Oil] 1 cap PO QAM 01/02/19 01/07/19 History Patient History Medical History Anemia CHRONIC; BASELINE HGB 10'S PER CHART REVIEW CAD (coronary artery disease) S/P CABG X 3 (2008) Chronic kidney disease STAGE 5- PLAN FOR FUTURE DIALYSIS; NO PRIOR DIALYSIS Deep vein thrombosis LLE DVT 2016; NO ISSUES SINCE History of gastric ulcer PER RECORDS Hyperlipidemia Hypertension Inflammatory arthritis Myocardial Infarction 2008 Obesity Surgical History H/O eye surgery AN INFANT FOR STRABISMUS History of cardiac cath S/P CABG X 3 (2008)= CASAREZ-LAD, SVG-OM2, SVG-OM3 2016= PATENT BYPASS GRAFTS History of carpal tunnel release LEFT History of colonoscopy History of coronary artery bypass graft S/P CABG X 3 (2008): CASAREZ-LAD, SVG-OM2, SVG-OM3 History of esophagogastroduodenoscopy (EGD) History of herniorrhaphy INGUINAL HERNIA REPAIR History of tonsillectomy Family History Father Family history of diabetes mellitus Social History Preferred Language: Malaysian Communication Ability: Effective Beliefs That Will Affect Care: None Current Living Situation: Parent and Significant Other Other Information That Helps Us Care for You: No Feels Safe at Home: Yes Safety Concerns: Feels Safe At This Time Smoking Status: Never smoker Hx Alcohol Use: No Hx Substance Use: No Review of Systems all remaining ros reviewed and are negative Physical Exam Vital Signs (Past 24 Hours): Last Vital Signs Temp 36.7 C 01/08/19 07:05 Pulse 76 04/08/19 07:05 Resp 18 01/08/19 07:05 BP 154/85 H 01/08/19 07:05 Pulse Ox 98 01/08/19 07:05 Constitutional: WD/WN, vitals as above Eyes: PERRL, conjunctivae normal, anicteric sclerae ENMT: external ear and nose normal, oropharynx normal Neck: normal visual inspection Respiratory: normal respiratory effort, lungs clear to auscultation Cardiovascular: RRR, no murmur, no edema Gastrointestinal (Abdomen): normal bowel sounds, soft, nontender, no hepatosplenomegaly Musculoskeletal: no cyanosis or clubbing, extremities motor strength 5/5 Skin: no rashes, warm and dry left leg with erythema over ant calf, improved from photo on patient's phone. no warmth, nontender. + edema left ankle. no purulent draiange noted Psychiatric: A+Ox3, euthymic affect (1) Cellulitis Laterality: left Site of cellulitis: extremity Site of cellulitis of extremity: lower extremity Qualified Code(s): L03.116 - Cellulitis of left lower limb
--- NOTE | 2019-01-08 10:33 | Nephrology Consultation ---
Date of Consultation January 08, 2019 Assessment & Plan (1) End stage renal disease: 53-year-old gentlemen with end-stage renal disease secondary to hypertensive nephrosclerosis, on hemodialysis Tuesday, Tuesday, Tuesday. Admitted with left lower extremity cellulitis with failed outpatient antibiotic therapy. X-ray left lower extremity is not suggestive of osteomyelitis. Had last dialysis Tuesday, due for dialysis today, currently electrolyte, volume status acceptable. --will schedule for dialysis today for 4 hours with 3 K bath, UF as tolerated to reach his estimated dry weight. --Epogen for hemoglobin less than 10 --continue on renal cap and phosphate binder with meal --avoid IV fluid, continue on renal diet, dose medications for GFR less than 10 --continue management of cellulitis as for primary team and ID recommendation. Will follow Thank you for allowing me to participate in your patient's care. It was a pleasure to see Ed. (2) Cellulitis of left lower extremity: (3) Anemia: (4) Secondary hyperparathyroidism of renal origin: History of Present Illness Reason for Consultation: End-stage renal disease on hemodialysis. Attending Physician: Isac Ray MD History of Present Illness Ed presented to the ER with left lower extremity cellulitis which he has been having for last 1 week, failed outpatient antibiotic therapy. Three days ago he came to ER and received IV antibiotic however over last 2 days his lower extremity cellulitis seems to have worsened. X-ray showed soft tissue swelling but not suggestive of osteomyelitis. Received IV Zosyn and ID was consulted for further evaluation. Currently he is having some pain in left lower extremity but otherwise asymptomatic. No shortness of breath or chest pain. No fever, chills. No leukocytosis. Has end-stage renal disease secondary to hypertensive nephropathy, on dialysis since November 2018, dialysis on Tuesday, Tuesday, Tuesday at [facility] in [place]. Last dialysis was Tuesday, currently volume status, electrolyte acceptable. Due for dialysis today. Has history of coronary artery disease, status post CABG. Allergies Allergy/AdvReac Type Severity Reaction Status Date / Time hydralazine Allergy Intermediate STIFF Verified 01/07/19 14:01 JOINTS Home Medications Home Medications Medication Instructions Recorded Confirmed Type aspirin [Aspirin Low Dose] 81 mg PO QAM 07/10/18 01/07/19 History carvedilol [Coreg] 50 mg PO BID 07/10/18 01/07/19 History cholecalciferol (vitamin D3) 1,000 unit PO QAM 07/10/18 01/07/19 History [Vitamin D3] clonidine HCl 0.2 mg PO BID 07/10/18 01/07/19 History isosorbide mononitrate 30 mg PO HS 07/10/18 01/07/19 History nitroglycerin [Nitrostat] 1 dose SUBLINGUAL UD PRN 07/10/18 01/07/19 History rosuvastatin [Crestor] 10 mg PO HS 07/10/18 01/07/19 History albuterol sulfate [ProAir HFA] 2 puff INHALATION Q4H PRN 01/02/19 01/07/19 History loratadine 10 mg PO QAM 01/02/19 01/07/19 History losartan 50 mg PO QAM 01/02/19 01/07/19 History omega 6-kve-ere-fish oil [Fish Oil] 1 cap PO QAM 01/02/19 01/07/19 History Patient History Medical History Anemia CHRONIC; BASELINE HGB 10'S PER CHART REVIEW CAD (coronary artery disease) S/P CABG X 3 (2008) Chronic kidney disease STAGE 5- PLAN FOR FUTURE DIALYSIS; NO PRIOR DIALYSIS Deep vein thrombosis LLE DVT 2016; NO ISSUES SINCE History of gastric ulcer PER RECORDS Hyperlipidemia Hypertension Inflammatory arthritis Myocardial Infarction 2008 Obesity Surgical History H/O eye surgery AN INFANT FOR STRABISMUS History of cardiac cath S/P CABG X 3 (2008)= CASAREZ-LAD, SVG-OM2, SVG-OM3 2017= PATENT BYPASS GRAFTS History of carpal tunnel release LEFT History of colonoscopy History of coronary artery bypass graft S/P CABG X 3 (2008): CASAREZ-LAD, SVG-OM2, SVG-OM3 History of esophagogastroduodenoscopy (EGD) History of herniorrhaphy INGUINAL HERNIA REPAIR History of tonsillectomy Family History Father Family history of diabetes mellitus Social History Preferred Language: Botswanan Communication Ability: Effective Beliefs That Will Affect Care: None Current Living Situation: Parent and Significant Other Other Information That Helps Us Care for You: No Feels Safe at Home: Yes Safety Concerns: Feels Safe At This Time Smoking Status: Never smoker Hx Alcohol Use: No Hx Substance Use: No Review of Systems Detailed review of system was otherwise unremarkable. Physical Exam Vital Signs (Past 24 Hours): Last Vital Signs Temp 36.7 C 01/08/19 07:05 Pulse 76 01/08/19 07:05 Resp 18 01/08/19 07:05 BP 154/85 H 01/08/19 07:05 Pulse Ox 98 01/08/19 07:05 Physical Exam: GENERAL: Middle-aged male, AAA x 3, pleasant, healthy-appearing, not in any distress. HEENT: Atraumatic, normocephalic. NECK: Supple, no JVD, no carotid bruit appreciated. ENT: No sinus tenderness MOUTH and THROAT: Moist oral mucosa, RESPIRATORY: Normal breathing efforts, clear to auscultation bilaterally, no wheezes or rales. CARDIOVASCULAR: S1, S2 normal, rate rhythm regular. ABDOMEN: Soft, nontender, positive bowel sound. MUSCULOSKELETAL: No CVA tenderness. No joint swelling, erythema or tenderness. Normal range of motion. SKIN: No skin rash EXTREMITY: Left lower extremity with swelling, erythema, warmth and tenderness NEURO: No gross focal neurological deficit, speech fluent. PSYCHIATRY: Normal mood and judgment
[2019-01-08] MEDS ORDERED: TRAMADOL HCL 50 MG TABLET PO PRN (13:06)
[2019-01-08] MEDS: HYDROCODONE/ACETAMOPHEN 5/325MG TAB PO PRN (13:47)
--- NOTE | 2019-01-08 14:59 | Hospitalist Progress Note ---
Date of Service January 08, 2019 Assessment & Plan (1) Cellulitis of left lower extremity: per Dr. Crawford's notes: Noted to have cellulitis of the left lower extremity 3 days back Was in the ER with the negative x-ray and was given intravenous Dalvance Follow-up today in the emergency room showed worsening cellulitis He was admitted to hospital for continuation of care of worsening cellulitis No increase in white count and no fever and/or chills We will give Zosyn intravenously now and will not repeat intravenous Dalvance now as because its prolonged half-life. ID consult for further management -- ID consulted recommend to continue Zosyn recommended Dalvance on discharge day, then Levaquin PO (2) Failure of outpatient treatment: managemente as noted above (3) End stage renal disease: Has been in the hemodialysis 3 times a week Nephrology consult to continue dialysis (4) CAD (coronary artery disease) of artery bypass graft: History of CAD status post bypass graft and also history of AV fistula Continue with current medications Does not have any acute symptoms Other medical conditions of hypertension, hyperlipidemia, history of gastric ulcer, hyperparathyroidism remains stable continue outpatient medications DVT prophylaxis Subcu heparin CODE STATUS Full code Subjective ff up for leg cellulitis, left seen resting in bed, comfortable states left leg pain is improving no fever/chills no chest pain, palpitatons, dizziness, nausea/vomiting denies other symptom Physical Exam Vital Signs (Past 24 Hours): Last Vital Signs Temp 37.2 C 01/08/19 14:10 Pulse 65 01/08/19 14:43 Resp 18 01/08/19 07:05 BP 133/81 01/08/19 14:43 Pulse Ox 98 01/08/19 07:05 Physical Exam: General- oriented x 3, not in distress, speaks in sentences with no effort or accessory muscle use Eyes- anicteric Neck- no JVD Lungs- clear breath sounds bilaterally, no rales/wheezes Heart- normal rate, regular rhythm; no murmurs Abdomen- normal bowel sounds, nondistended, soft, nontender Extremities- left leg: (+) moderate erythema on the left lower leg- anteromedial and dorsum of the foot no pretibial edema, no calf tenderness Neuro- alert, oriented x 3; no gross focal neurologic deficits Skin- warm & dry
[2019-01-08] MEDS: ISOSORBIDE MONO EXTENDED REL 30 MG TABCR PO SCH (20:46)
[2019-01-08] MEDS: ROSUVASTATIN CALCIUM 10 MG TAB PO SCH (20:46)
[2019-01-09] MEDS: HYDROCODONE/ACETAMOPHEN 5/325MG TAB PO PRN ×2 (00:13→09:07)
[2019-01-09] MEDS: PIPERACILLIN/TAZOBACTAM 4.5 GM in DEXTROSE 5% 100 ML IV SCH (06:31)
[2019-01-09] MEDS: HEPARIN SOD 5,000 UNIT/0.5 ML VIAL SQ SCH ×2 (06:32→13:59)
[2019-01-09] MEDS: LORATADINE 10 MG TAB PO SCH (09:04)
[2019-01-09] MEDS: LACTOBACILLUS ACIDOPHILUS (FLORANEX) TAB PO SCH ×2 (09:04→11:52)
[2019-01-09] MEDS: OMEGA-3 (PURIFIED FISH OIL) 1 GM CAP PO SCH (09:05)
[2019-01-09] MEDS: CARVEDILOL 25 MG TAB PO SCH (09:05)
[2019-01-09] MEDS: LOSARTAN POTASSIUM 50 MG TAB PO SCH (09:05)
[2019-01-09] MEDS: CHOLECALCIFEROL 1,000 UNITS TAB PO SCH (09:05)
[2019-01-09] MEDS: cloNIDine HCl 0.1 MG TAB PO SCH (09:05)
[2019-01-09] MEDS: ASPIRIN 81 MG ECTAB PO SCH (09:06)
--- NOTE | 2019-01-09 10:24 | Nephrology Progress Note ---
Date of Service January 09, 2019 Assessment & Plan (1) End stage renal disease: 53-year-old gentlemen with end-stage renal disease secondary to hypertensive nephrosclerosis, on hemodialysis Tuesday, Tuesday, Tuesday. Admitted with left lower extremity cellulitis with failed outpatient antibiotic therapy. X-ray left lower extremity is not suggestive of osteomyelitis. Had last dialysis Tuesday, due for dialysis today, currently electrolyte, volume status acceptable. --had dialysis yesterday is regular schedule, currently blood pressure, electrolyte, volume status acceptable. Next dialysis tomorrow. --Epogen for hemoglobin less than 10 --continue on renal cap and phosphate binder with meal --patient can be discharged any time antibiotic can be switched to orally as recommended by ID Will follow while in hospital Thank you for allowing me to participate in your patient's care. It was a pleasure to see Ed. (2) Cellulitis of left lower extremity: (3) Anemia: (4) Secondary hyperparathyroidism of renal origin: Subjective Ed was seen and examined in his room this morning. Had dialysis yesterday, uneventful, currently otherwise doing well, blood pressure electrolyte acceptable. Left lower extremity cellulitis slightly improved, continued on Zosyn. Blood culture negative. Review of Systems Detailed review of system was otherwise unremarkable except pertinent positive and negative findings mention above in history of present illness. Physical Exam Vital Signs (Past 24 Hours): Last Vital Signs Temp 36.4 C L 01/09/19 07:26 Pulse 65 01/09/19 07:26 Resp 18 01/09/19 07:26 BP 125/78 01/09/19 07:26 Pulse Ox 98 01/09/19 07:26 Constitutional: WD/WN, vitals as above Respiratory: normal respiratory effort, lungs clear to auscultation Cardiovascular: Rate/Rhythm: regular rate and regular rhythm Heart Sounds: normal S1 and normal S2 Skin: Left lower extremity it erythema, warmth and tenderness. Neurologic: moves all extremities and awake Psychiatric: A+Ox3, euthymic affect
[2019-01-09] MEDS ORDERED: POLYETHYLENE (MIRALAX) 17 GM PACK PO PRN (12:15)
[2019-01-09] MEDS ORDERED: AMLODIPINE BESYLATE 5 MG TAB PO ONE (13:20)
--- NOTE | 2019-01-09 14:35 | Hospitalist Progress Note ---
Date of Service January 09, 2019 Assessment & Plan (1) Cellulitis of left lower extremity: per Dr. Crawford's notes: Noted to have cellulitis of the left lower extremity 3 days back Was in the ER with the negative x-ray and was given intravenous Dalvance Follow-up today in the emergency room showed worsening cellulitis He was admitted to hospital for continuation of care of worsening cellulitis No increase in white count and no fever and/or chills We will give Zosyn intravenously now and will not repeat intravenous Dalvance now as because its prolonged half-life. ID consult for further management -- ID consulted- Dr. Joy recommend to continue Zosyn IV -- per Dr. Joy, leg cellulitis improving with Dalvance -- recommend to d/c home on Levaquin x 10 days consulted with Pharmacy, Levaquin 500mg PO one dose to be given prior to discharge, then Levaquin 250mg po every 48 hours starting January 11, 2019 until January 18, 2019 (total of 4 doses). -- ff up with ID Clinic for another Dalvance dose on January 16, 2019 (2) Failure of outpatient treatment: management as noted above (3) End stage renal disease: hemodialysis 3 times a week Nephrology consulted continue dialysis (4) CAD (coronary artery disease) of artery bypass graft: History of CAD status post bypass graft and also history of AV fistula Continue with current medications Does not have any acute symptoms Other medical conditions of hypertension, hyperlipidemia, history of gastric ulcer, hyperparathyroidism remains stable continue outpatient medications DVT prophylaxis Subcu heparin d/c home today ff up with PCP in 3-5 days, per d/c instructions ff up with ID on 01/16/19 Subjective ff up for leg cellulitis, left resting in bed, comfortable not in distress states he feels fine overall less left leg pain no fever/chills states he feels better overall requesting for discharge Physical Exam Vital Signs (Past 24 Hours): Last Vital Signs Temp 36.4 C L 01/09/19 07:26 Pulse 65 01/09/19 13:55 Resp 18 01/09/19 07:26 BP 104/63 01/09/19 13:55 Pulse Ox 98 01/09/19 07:26 Physical Exam: General- oriented x 3, not in distress, speaks in sentences with no effort or accessory muscle use Eyes- anicteric Neck- no JVD Lungs- clear BS BL Heart- normal rate, regular rhythm; no murmurs Abdomen- normal bowel sounds, nondistended, soft, nontender Extremities-left lower leg: less edema, erythema; non tender, no warmth no pretibial edema, no calf tenderness Neuro- alert, oriented x 3; no gross focal neurologic deficits Skin- warm & dry
[2019-01-09] MEDS ORDERED: levoFLOXacin 500 MG TAB PO ONE (14:45)
[2019-01-10] MEDS ORDERED: SODIUM CHLORIDE 0.9% 1000ML 1,000 ML IV PRN (07:00)
--- NOTE | 2019-01-11 16:27 | Discharge Summary ---
Date of Service January 11, 2019 Admission HPI Per Admitting Provider He is a 53-year-old obese male with significant past medical history of CAD status post aortocoronary bypass, end-stage renal disease on hemodialysis, history of AV fistula, hypertension, hyperlipidemia hyperparathyroidism secondary and history of drug-induced lupus has been in ER as a follow-up of left leg cellulitis which was treated with intravenous Dalvance 3 days ago. Her leg wounds looked worse with new area of redness and worsening infection as per ER physician's assessment. He complains to have some discomfort in left leg but does not have any swelling in the groin or any fever and/or chills. He is blood counts were unremarkable and he has had hemodialysis yesterday. He denies any chest pain, shortness of breath, palpitation, any abdominal pain, nausea and/or vomiting. He was admitted to medical floor for worsening of left leg cellulitis and a possible failure of intravenous Dalvance. Admission Exam Per Admitting Provider Vital Signs (Past 24 Hours): Last Vital Signs Temp 37 C 01/07/19 07:45 Pulse 79 01/07/19 07:45 Resp 18 01/07/19 07:45 BP 165/97 H 01/07/19 07:45 Pulse Ox 100 01/07/19 07:45 Physical Exam: Lying in bed without any discomfort Constitutional: WD/WN, vitals as above well developed Eyes: PERRL, conjunctivae normal, anicteric sclerae ENMT: external ear and nose normal, oropharynx normal Neck: trachea midline, no thyromegaly Respiratory: normal respiratory effort Auscultation: lungs clear to auscultation bilaterally Cardiovascular: Rate/Rhythm: regular rate and regular rhythm Heart Sounds: normal S1, normal S2 and + murmur (2/6 ejection systolic murmur over precordium) Gastrointestinal (Abdomen): Inspection/Auscultation: abdomen normal to inspection and normal bowel sounds Percussion/Palpation: abdomen soft; abdomen nontender Musculoskeletal: Extremities: + lower extremity abnormal to inspection (Left lower leg including foot has swelling with patches of redness as an picture) Left Neurologic: Alert, awake and oriented x3 Principal Diagnosis Left Lower Extremity Cellulitis Discharge Exam Vital Signs (Past 24 Hours): Last Vital Signs Temp 36.4 C L 01/09/19 07:26 Pulse 65 01/09/19 13:55 Resp 18 01/09/19 07:26 BP 104/63 01/09/19 13:55 Pulse Ox 98 01/09/19 07:26 Physical Exam: General- oriented x 3, not in distress, speaks in sentences with no effort or accessory muscle use Eyes- anicteric Neck- no JVD Lungs- clear BS BL Heart- normal rate, regular rhythm; no murmurs Abdomen- normal bowel sounds, nondistended, soft, nontender Extremities-left lower leg: less edema, erythema; non tender, no warmth no pretibial edema, no calf tenderness Neuro- alert, oriented x 3; no gross focal neurologic deficits Skin- warm & dry Discharge Data Allergies Allergy/AdvReac Type Severity Reaction Status Date / Time hydralazine Allergy Intermediate STIFF Verified 01/07/19 14:01 JOINTS Consultations 01/07/19 08:58 ED Decision to Admit Stat 01/08/19 08:00 Consult Infectious Diseases Routine Consult Nephrology Stat Hospital Course (1) Cellulitis of left lower extremity: per Dr. Crawford's notes: Noted to have cellulitis of the left lower extremity 3 days back Was in the ER with the negative x-ray and was given intravenous Dalvance Follow-up in the emergency room showed worsening cellulitis He was admitted to hospital for continuation of care of worsening cellulitis No increase in white count and no fever and/or chills given Zosyn intravenously and will not repeat intravenous Dalvance now as because its prolonged half-life. -- ID consulted- Dr. Joy recommend to continue Zosyn IV -- per Dr. Joy, leg cellulitis improving with Dalvance -- recommend to d/c home on Levaquin x 10 days consulted with Pharmacy, Levaquin 500mg PO one dose to be given prior to discharge, then Levaquin 250mg po every 48 hours starting January 11, 2019 until January 18, 2019 (total of 4 doses). -- ff up with ID Clinic for another Dalvance dose on January 16, 2019 (2) Failure of outpatient treatment: management as noted above (3) End stage renal disease: hemodialysis 3 times a week Nephrology consulted continue dialysis (4) CAD (coronary artery disease) of artery bypass graft: History of CAD status post bypass graft and also history of AV fistula Continue with current medications Does not have any acute symptoms Other medical conditions of hypertension, hyperlipidemia, history of gastric ulcer, hyperparathyroidism remains stable continue outpatient medications DVT prophylaxis Subcu heparin d/c home ff up with PCP in 3-5 days, per d/c instructions ff up with ID on 01/16/19 Total Time Total Time Spent Total Time Spent (In Minutes): 35 mins Discharge Plan Discharge Items Patient Disposition: Home - Self-Care Reason For Visit: WORSENING CELULITIS LLL Discharge Diagnosis: LEFT LEG CELLULITIS Discharge Goals: Diagnostic testing and Therapeutic intervention Activity: As commented below Activity Comment: INCREASE ACTIVITY GRADUALLY TOLERATED Lifting: Wait until after follow-up appointment Exercise/Sports: Wait until after follow-up appointment Driving/Machine Use Comment: NO DRIVING Non-emergency contact: Primary Care Provider Call non-emergency contact if: you have any medication questions, your symptoms worsen, your pain is not controlled, your pain is worsening, your pain is concerning for you, your wound has increased redness, your wound has increased drainage and your wound pain has increased Follow-up/Referrals: Artie Tom MD [Primary Care Provider] - Diet: Dialysis Renal and Heart Healthy Addtl Provider Instructions: FOLLOW UP WITH DR. MENDEZ ON SATURDAY JANUARY 12, 2019 AT 10:45AM. (DR. TOM IS NOT AVAILABLE FOR YOUR FOLLOW UP ON TUESDAY). FOLLOW UP WITH INFECTIOUS DISEASE CLINIC FOR ANOTHER DOSE OF DALVANCE ON JANUARY 16, 2019. PLEASE CALL THE CLINIC AT LEAST 3-5 DAYS PRIOR TO JANUARY 16 TO SET UP ARRANGEMENTS. PLEASE CALL PRIMARY CARE PHYSICIAN OR RETURN TO THE ER IMMEDIATELY IF WITH RECURRENCE, WORSENING OF SYMPTOMS. Prescriptions: New tramadol 50 mg tablet 50 mg PO Q12H PRN (Reason: severe pain) Qty: 10 RF: 0 levofloxacin 250 mg tablet 250 mg PO Q48H Qty: 4 RF: 0 Continued losartan 50 mg tablet 50 mg PO QAM RF: 0 albuterol sulfate [ProAir HFA] 90 mcg/actuation HFA aerosol inhaler 2 puff Inhalation Q4H PRN (Reason: Shortness Of Breath Or Wheezing) RF: 0 loratadine 10 mg Tablet 10 mg PO QAM RF: 0 omega 8-iuq-fes-fish oil [Fish Oil] 1,000 mg (120 mg-180 mg) Capsule 1 cap PO QAM RF: 0 carvedilol [Coreg] 25 mg Tablet 50 mg PO BID RF: 0 isosorbide mononitrate 30 mg Tablet Extended Release 24 Hr 30 mg PO HS RF: 0 aspirin [Aspirin Low Dose] 81 mg Tablet,Delayed Release (Dr/Ec) 81 mg PO QAM RF: 0 clonidine HCl 0.2 mg Tablet 0.2 mg PO BID RF: 0 nitroglycerin [Nitrostat] 0.4 mg Tablet, Sublingual 1 dose Sublingual UD PRN (Reason: Chest Pain) RF: 0 cholecalciferol (vitamin D3) [Vitamin D3] 1,000 unit Capsule 1,000 unit PO QAM RF: 0 rosuvastatin [Crestor] 10 mg Tablet 10 mg PO HS RF: 0 Stand-Alone Forms: [facility] Discharge Orders: Discharge Order (Routine); Ordered 01/09/19 Ordered By: Isac Ray Admission Data Admit Date/Time: 01/08/19 09:00 Attending Provider: Isac Ray Admit Provider: Dulce Crawford Primary Care Provider: Artie Tom Other Providers: Dulce Crawford ; Patricia Joy ; Porsha Mitchell Service: Medical Other Interventions: Discharge Summary Assessment (RN) Last Done: 01/09/19 15:05 DC Date/Time DO NOT enter until pt leaves facility: 01/09/19 15:43
== END 2019-01-09 15:43 | disposition home or self-care (01) | DRG 602 ==
LOC: ED 07:42 → 4E 07:42 → SUATTDRO 10:10 → 4E 10:58
DX: E78.5 Hyperlipidemia, unspecified; I25.810 Atherosclerosis of coronary artery bypass graft(s) without angina pectoris; Z68.37 Body mass index [BMI] 37.0-37.9, adult; N18.6 End stage renal disease; Z79.82 Long term (current) use of aspirin; L03.116 Cellulitis of left lower limb; Z79.899 Other long term (current) drug therapy; I25.2 Old myocardial infarction; E66.9 Obesity, unspecified; Z95.1 Presence of aortocoronary bypass graft; N25.81 Secondary hyperparathyroidism of renal origin; Z86.718 Personal history of other venous thrombosis and embolism; Z88.8 Allergy status to other drugs, medicaments and biological substances; I13.11 Hypertensive heart and chronic kidney disease without heart failure, with stage 5 chronic kidney disease, or end stage renal disease; Z99.2 Dependence on renal dialysis

== ENCOUNTER 2020-06-18 17:40 | Observation (INO) ==
--- OUTSIDE RECORDS SUMMARY | 2020-06-18 17:43 | External Medical Summary | Continuity of Care Document ---
:1965 Author Name Radha Murray, Provider Address Unavailable Unavailable , Care Team Providers Name Role Phone Unavailable Unavailable Unavailable Francisco Diop DO Unavailable [email or web address] Problems Aortocoronary bypass status (V45.81) (Z95.1) Class 2 obesity in adult (278.00) (E66.9) Dyslipidemia (272.4) (E78.5) CAD (coronary artery disease) (414.00) (I25.10) Inflammatory arthritis (714.9) (M19.90) Vascular hamartoma (757.32) (Q85.9) Benign hypertension with CKD (chronic kidney disease) stage IV (403.10) (I12.9) Anemia in stage 5 chronic kidney disease , not on chronic dialysis (285.21) (N18.5) Hypertension (401.9) (I10) Secondary hyperparathyroidism, renal (588.81) (N25.81) CKD (chronic kidney disease) stage V requiring chronic dialysis (585.6) (N18.6) Cellulitis of left lower leg (682.6) (L03.116) Allergies and Adverse Reactions hydrALAZINE HCl TABS (Allergy) Reaction: Other Medications ProAir HFA 108 (90 Base) MCG/ACT Inhalat ion Aerosol Solution; INHALE 2 PUFFS EVERY 4 HOURS NEEDED , M.D. 8.5 GM Inhaler Quantity: 1 Refills: 5 Aspirin 81 MG TABS; TAKE 1 TABLET DAILY. , M.D. Refills: 0 Carvedilol 25 MG Oral Tablet; TAKE 1 AND 1/2 TABLETS TWICE D Terri DEL RIO Quantity: 180 Refills: 3 cloNIDine HCl - 0.2 MG Oral Tablet; TAKE 1 TABLET Bedtime DO Francisco Woodward 100 Tablet Bottle Quantity: 1 Refills: 0 Isosorbide Mononitrate ER 30 MG Oral Tab let Extended Release 24 Hour; take 1 tablet by mouth once daily , M.D. Refills: 5 Nitroglycerin 0.4 MG Sublingual Tablet S ublingual; PLACE 1 TABLET UNDER THE TONGUE EVERY 5 MINUTES UP TO 3 DOSES NEEDED FOR CHEST PAIN. , M.D. Refills: 0 Joiner 3 1000 MG Oral Capsule; TAKE 1 CAP BY MOUTH DAILY. , M .D. Refills: 0 Rosuvastatin Calcium 10 MG Oral Tablet; TAKE 1/2 TABLET 3 TI MES A WEEK. , M.D. Refills: 0 Terazosin HCl - 5 MG Oral Capsule; TAKE 1 CAPSULE BY MOUTH O NCE A DAY , M.D. Quantity: 90 Refills: 3 Vitamin D 1000 UNIT CAPS; TAKE 1 CAP DAILY. , M.D. Refills: 0 Loratadine 10 MG Oral Tablet; TAKE 1 TABLET DAILY NEEDED. , M.D. Refills: 0 Calcitriol 0.25 MCG Oral Capsule; TAKE 1 CAPSULE Three a DO Francisco Bingham Start: 09-Aug-2018 Quantity: 24 Refills: 3 Procedures History of coronary artery bypass graft Status: Completed History of cardiac catheterization Statu s: Completed History of carpal tunnel surgery Status: Completed History of colonoscopy Status: Completed History of esophagogastroduodenoscopy St atus: Completed History of eye surgery Status: Completed History of tonsillectomy with adenoidectomy Status: Completed History of Hernia Repair Status: Complet ed Immunizations Flublok Quadrivalent 0.5 ML Intramuscular Solution Pre filled Syringe On: 09-Aug-2018 16:56 Lot #: [id number], [employer] Family History Mother Family history of hypertension (V17.49) (Z82.49) Status: Act tyson Family history of thyroid disease (V18.19) (Z83.49) Status: Active Family history of hyperlipidemia (V18.19) (Z83.438) Status: Active Family history of arthritis (V17.7) (Z82.61) Status: Active Father Family history of hypertension (V17.49) (Z82.49) Status: Act tyson Family history of arthritis (V17.7) (Z82.61) Status: Active Family history of diabetes mellitus (V18.0) (Z83.3) Status: Active Social History - Smoking Status Never smoked tobacco Plan of Treatment Planned Observations Planned Goals not documented Results No Known Results Results not documented Encounters Appointment; Patricia Joy DO 24-Jan-2019 9:30 Encounter Diagnosis: Problem not documented Appointment; Francisco Diop DO 21-Nov-2018 8:45 Encounter Diagnosis: Problem not documented Appointment; [facility] 03-Nov-2018 10:00 Encounter Diagnosis: Problem not documented Appointment; Francisco Diop DO 24-Oct-2018 13:10 Encounter Diagnosis: Problem not documented Appointment; Francisco Diop DO 13-Sep-2018 14:20 Encounter Diagnosis: Problem not documented Appointment; Francisco Diop DO 09-Aug-2018 15:45 Encounter Diagnosis: Problem not documented
--- OUTSIDE RECORDS SUMMARY | 2020-06-18 17:43 | External Medical Summary | Continuity of Care Document ---
:1965 Author Name Radha Murray, Provider Address Unavailable Unavailable , Care Team Providers Name Role Phone Unavailable Unavailable Unavailable Francisco Diop DO Unavailable [email or web address] Problems Anemia in stage 5 chronic kidney disease , not on chronic dialysis (285.21) (N18.5) Hypertension (401.9) (I10) Secondary hyperparathyroidism, renal (588.81) (N25.81) Benign hypertension with CKD (chronic kidney disease) stage IV (403.10) (I12.9) Vascular hamartoma (757.32) (Q85.9) Inflammatory arthritis (714.9) (M19.90) CAD (coronary artery disease) (414.00) (I25.10) Dyslipidemia (272.4) (E78.5) Class 2 obesity in adult (278.00) (E66.9) Aortocoronary bypass status (V45.81) (Z95.1) Cellulitis of left lower leg (682.6) (L03.116) CKD (chronic kidney disease) stage V requiring chronic dialysis (585.6) (N18.6) Allergies and Adverse Reactions hydrALAZINE HCl TABS (Allergy) Reaction: Other Medications Carvedilol 25 MG Oral Tablet; TAKE 1 AND 1/2 TABLETS TWICE D Terri DEL RIO Quantity: 180 Refills: 3 cloNIDine HCl - 0.2 MG Oral Tablet; TAKE 1 TABLET Bedtime DO Francisco Woodward 100 Tablet Bottle Quantity: 1 Refills: 0 Calcitriol 0.25 MCG Oral Capsule; TAKE 1 CAPSULE Three a Wee k DO Francisco Diop Start: 09-Aug-2018 Quantity: 24 Refills: 3 Vitamin D 1000 UNIT CAPS; TAKE 1 CAP DAILY. , M.D. Refills: 0 Terazosin HCl - 5 MG Oral Capsule; TAKE 1 CAPSULE BY MOUTH O NCE A DAY , M.DTita Quantity: 90 Refills: 3 Rosuvastatin Calcium 10 MG Oral Tablet; TAKE 1/2 TABLET 3 TI MES A WEEK. , M.D. Refills: 0 Antelope 3 1000 MG Oral Capsule; TAKE 1 CAP BY MOUTH DAILY. , M .D. Refills: 0 Nitroglycerin 0.4 MG Sublingual Tablet S ublingual; PLACE 1 TABLET UNDER THE TONGUE EVERY 5 MINUTES UP TO 3 DOSES NEEDED FOR CHEST PAIN. , M.D. Refills: 0 Aspirin 81 MG TABS; TAKE 1 TABLET DAILY. , M.D. Refills: 0 Loratadine 10 MG Oral Tablet; TAKE 1 TABLET DAILY NEEDED. , M.D. Refills: 0 ProAir HFA 108 (90 Base) MCG/ACT Inhalat ion Aerosol Solution; INHALE 2 PUFFS EVERY 4 HOURS NEEDED , M.D. 8.5 GM Inhaler Quantity: 1 Refills: 5 Isosorbide Mononitrate ER 30 MG Oral Tab let Extended Release 24 Hour; take 1 tablet by mouth once daily , M.D. Refills: 5 Procedures History of coronary artery bypass graft [...] filled Syringe On: 09-Aug-2018 16:56 Lot #: [id number], [employer] Family History Mother Family history [...] 8:45 Encounter Diagnosis: Problem not documented Appointment; [place] 03-Nov-2018 10:00 Encounter Diagnosis: Problem not documented Appointment; Francisco Diop DO 24-Oct-2018 13:10 Encounter Diagnosis: Problem not documented Appointment; Francisco Diop DO 13-Sep-2018 14:20 Encounter Diagnosis: Problem not documented Appointment; Francisco Diop DO 09-Aug-2018 15:45 Encounter Diagnosis: Problem not documented
[2020-06-18] MEDS ORDERED: SODIUM CHLORIDE 0.9% 250 ML IV ONE (18:35)
[2020-06-18 18:43] LABS: Basophils # (auto) 0.04 K/uL (0-0.2); Basophils % (auto) 0.6 %; Eosinophils # (auto) 0.13 K/uL (0-0.5); Hematocrit (blood only) 36.4 % (42-52); Hemoglobin 11.7 g/dL (14.0-18.0); Immature Granulocytes # (auto) 0.01 K/uL (0.00-0.02); Immature Granulocytes % (auto) 0.2 %; Lymphocytes # (auto) 0.79 K/uL (1.2-3.4); Lymphocytes % (auto) 12.1 %; Mean Corpuscular Hgb Conc 32.1 g/dL (32-36); Mean Corpuscular Volume 102.5 fL (80-100); Mean Platelet Volume 9.9 fL (7.4-10.4); Monocytes # (auto) 0.93 K/uL (0.11-0.59); Monocytes % (auto) 14.3 %; Neutrophils # (auto) 4.61 K/uL (1.4-6.5); Neutrophils % (auto) 70.8 %; Platelet Count 152 K/uL (130-400); RDW Standard Deviation 56.8 fL (36.4-46.3); Red Blood Count 3.55 M/uL (4.7-6.1); White Blood Count 6.51 K/uL (4.8-10.8)
[2020-06-18 18:54] LABS: Partial Thromboplastin Ratio 0.9; Prothrombin Time 10.9 Seconds (9.0-12.0)
[2020-06-18 19:03] LABS: Alanine Aminotransferase 31 U/L (12-78); Albumin Globulin Ratio 0.9 (0.9-2); Albumin Level 4.3 gm/dl (3.4-5.0); Alkaline Phosphatase 146 U/L (45-117); Aspartate Aminotransferase 20 U/L (15-37); Bilirubin,Total 0.8 mg/dl (0.2-1); Blood Urea Nitrogen 21 mg/dl (7-18); Carbon Dioxide 36 mmol/L (21-32); Chloride 95 mmol/L (98-107); Creatinine Clr Calc Pharmacy 19.7 ml/min; Est GFR (Non-African American) 11.2; Globulin 4.9 gm/dl (2.5-4.0); Glucose 88 mg/dl (70-99); Lipase 104 U/L (73-393); Magnesium 2.2 mg/dl (1.8-2.4); Phosphorus 3.2 mg/dl (2.5-4.9); Potassium 4.5 mmol/L (3.5-5.1); Sodium 136 mmol/L (136-145); Total Protein 9.2 gm/dl (6.4-8.2); Troponin I < 0.015 ng/ml (0-0.045)
--- NOTE | 2020-06-18 19:34 | XRay Report ---
XR chest 1V portable HISTORY: 54 years-old Male Chest Pain acute atypical chest pain COMPARISON: Chest radiograph 01/02/2019 TECHNIQUE: Portable AP view of the chest FINDINGS: Cardiac silhouette is upper limits of normal in size. Prior median sternotomy and CABG. There is no p neumothorax, pleural effusion, airspace consolidation or overt pulmonary edema. Degenerative changes of the shoulders and spine. IMPRESSION: No acute process. ACT 112: Negative or not required by law. The above report was generated using voice recognition software. It may contain grammatical, syntax o r spelling errors. Electronically signed by: Teddy Rosenbaum M.D. 06/18/2020 7:33 PM
--- NOTE | 2020-06-18 19:48 | Emergency Department Note ---
Impression & Plan Exertional chest pain, End-stage renal disease (ESRD), Syncope, History of coronary artery bypass graft ED Provider Note NAME: JENNIFER GILES AGE: 54 SEX: M ARRIVES VIA: Walk-In INFORMANT: Patient, ED PROVIDER(S): Lan Waldron MD CHIEF COMPLAINT: Syncope, exertional chest pain. PLAN: Disposition: Admit MEDICAL DECISION MAKING: The patient is a pleasant 54-year-old gentleman with a past medical history of CAD status post CABG, end-stage renal disease on HD on Tuesday who presents emergency department after having syncopal episode following completion of his dialysis which occurs in the setting of the patient reporting exertional chest pain over the past month which resolves with taking his nit roglycerin. He reports he did not mention this to any of his providers until today. Denies fever, cough, congestion, n/v/d. On arrival the patient is chronically ill-appearing but no acute distress, afebrile stable vital signs. EKG without evidence of acute ischemia. CXR negative. WBC and platelets wnl. H/H similar to prior. Chemistry without acidosis. Cr c/w ESRD. LFTs and electrolytes unremarkable. Troponin negative. Given patient's new exertional CP, reasonable to admit for further evaluation. Patient is agreeable with admission. Case was discussed with Dr. Prince, [facility] hospitalist, who will evaluate the patient for admission. Triage Nursing notes reviewed and agree them. Prior medical records reviewed Vital Signs: reviewed and remarkable for no significant abnormalities Differential diagnosis: Vasovagal event, dehydration, infection, hypoglycemia, electrolyte abnormalities, cardiac sources, intracerebral event, pulmonary embolism, seizure, toxicologic, neurologic, as well as other pathologies. ER treatment provided: See below. Diagnostics interpreted by me: ECG: NSR, 79 bpm, no ectopy, incomplete RBBB, nonspecific ST abnormality, no overt ST elevation or depression. Cardiac Monitoring: An order for continuous cardiac monitoring was placed and demonstrated NSR, 79 bpm, no ectopy Laboratory studies: See below Imaging studies: XR chest 1V portable HISTORY: 54 years-old Male Chest Pain acute atypical chest pain COMPARISON: Chest radiograph 01/02/2019 TECHNIQUE: Portable AP view of the chest FINDINGS: Cardiac silhouette is upper limits of normal in size. Prior median sternotomy and CABG. There is no pneumothorax, pleural effusion, airspace consolidation or overt pulmonary edema. Degenerative changes of the shoulders and spine. IMPRESSION: No acute process. ACT 112: Negative or not required by law. Consultation(s): None HPI: The patient is a pleasant 54-year-old gentleman with a past medical history of CAD status post CABG, end-stage renal disease on HD on Tuesday who presents emergency department after having syncopal episode following completion of his dialysis which occurs in the setting of the patient reporting exertional chest pain over the past month which resolves with taking his nitroglycerin. He reports he did not mention this to any of his providers until today. Denies fever, cough, congestion, n/v/d. ROS: See above HPI for pertinent positives & negatives. A total of 10 systems r eviewed and were otherwise negative. PAST MEDICAL HISTORY:See Below PAST SURGICAL HISTORY:See Below FAMILY HISTORY:See Below SOCIAL HISTORY:See Below HOME MEDICATIONS:See Below ALLERGIES:See Below VITALS:See Below PHYSICAL EXAMINATION: GENERAL: Awake, alert, fatigued-appearing, in no distress HENT: Normocephalic, atraumatic. Oropharynx with dry mucous membranes and otherwise unremarkable. EYES: Normal conjunctiva. Sclera non-icteric. NECK: Supple. No nuchal rigidity. FROM. No JVD. RESPIRATORY: Clear to auscultation. CARDIAC: Regular rate, normal rhythm. Extremities warm and well perfused. Pulses equal. Left forearm with AV fistula with palpable bruit. ABDOMEN: Soft, non-distended. No tenderness to palpation. No rebound or guarding. No masses. RECTAL: Deferred. MUSCULOSKELETAL: Chest examination reveals no tenderness. The back is symmetrical on inspection without obvious abnormality. There is no CVA tenderness to palpation. No joint edema. LOWER EXTREMITIES: Calves are equal size bilaterally and non-tender. No edema. No discoloration. NEURO: Normal sensorium. No sensory or motor deficits noted. SKIN: No rash or jaundice noted. Lan Waldron MD Past Med/Surg History Medical History Anemia CHRONIC; BASELINE HGB 10'S PER CHART REVIEW CAD (coronary artery disease) S/P CABG X 3 (2008) Chronic kidney disease STAGE 5- PLAN FOR FUTURE DIALYSIS; NO PRIOR DIALYSIS Deep vein thrombosis LLE DVT 2017; NO ISSUES SINCE History of gastric ulcer PER RECORDS Hyperlipidemia Hypertension Inflammatory arthritis Myocardial Infarction 2008 Obesity Surgical History H/O eye surgery AN INFANT FOR STRABISMUS History of cardiac cath S/P CABG X 3 (2008)= CASAREZ-LAD, SVG-OM2, SVG-OM3 2017= PATENT BYPASS GRAFTS History of carpal tunnel release LEFT History of colonoscopy History of coronary artery bypass graft S/P CABG X 3 (2008): CASAREZ-LAD, SVG-OM2, SVG-OM3 History of esophagogastroduodenoscopy (EGD) History of herniorrhaphy INGUINAL HERNIA REPAIR History of tonsillectomy Family History Father Family history of diabetes mellitus Social History Smoking Status: Never smoker Second Hand Exposure: No; Hx Alcohol Use: No Hx Substance Use: No Preferred Language: Setswana Communication Ability: Effective Visual Impairment: No Limitations Audiology Director Required: No Beliefs That Will Affect Care: None Current Living Situation: Family Other Information That Helps Us Care for You: No Feels Safe at Home: Yes Safety Concerns: Feels Safe At This Time Allergies Allergies Allergy/AdvReac Type Severity Reaction Status Date / Time hydralazine Allergy Intermediate STIFF Verified 06/18/20 19:19 JOINTS Home Meds Home Medications Medication Instructions Recorded Confirmed aspirin [Aspirin Low Dose] 81 mg PO QAM 07/10/18 06/18/20 carvedilol [Coreg] 50 mg PO BID 07/10/18 06/18/20 cholecalciferol (vitamin D3) 1,000 unit PO QAM 07/10/18 06/18/20 [Vitamin D3] nitroglycerin [Nitrostat] 1 dose SUBLINGUAL DIRECTED PRN 07/10/18 06/18/20 rosuvastatin [Crestor] 10 mg PO HS 07/10/18 06/18/20 loratadine 10 mg PO QAM PRN 01/02/19 06/18/20 omega 0-jpt-eib-fish oil [Fish Oil] 1 cap PO QAM 01/02/19 06/18/20 acetaminophen [Tylenol Extra 1,000 mg PO Q8H PRN 01/18/19 06/18/20 Strength] clonidine HCl 0.1 mg PO BID 06/18/20 06/18/20 sucroferric oxyhydroxide [Velphoro] 1,000 mg PO TIDM 06/18/20 06/18/20 Results & Data (ED) Vital Signs Vital Signs - 24 hr 06/18/20 17:51 06/18/20 17:56 Temperature 36.5 C Temperature Source Oral Pulse Rate 80 Respiratory Rate 20 Respiratory Effort / Characteristics Non-Labored Respiratory Depth Normal Blood Pressure 145/91 H Blood Pressure Mean 109 Pulse Oximetry 99 Oxygen Delivery Method Room Air Sepsis Recent Fever Within 48 Hours No Sepsis New/Unexplained Change in Mental Status N/A Sepsis Action Taken by Nursing No Action Required Laboratory Data Attestation: I reviewed the patient's lab results. Result diagrams: 06/18/20 18:05 06/18/20 18:05 Lab Results 06/18/20 06/18/20 06/18/20 Range/Units 18:05 18:05 18:05 WBC 6.51 (4.8-10.8) K/uL RBC 3.55 L (4.7-6.1) M/uL Hgb 11.7 L (14.0-18.0) g/dL Hct 36.4 L (42-52) % MCV 102.5 H (80-100) fL MCH 33.0 (25-34) pg MCHC 32.1 (32-36) g/dL RDW Std Deviation 56.8 H (36.4-46.3) fL RDW Coeff of Adam 16.0 H (11.5-14.5) % Plt Count 152 (130-400) K/uL MPV 9.9 (7.4-10.4) fL Immature Gran % (Auto) 0.2 % Neut % (Auto) 70.8 % Lymph % (Auto) 12.1 % Bacon % (Auto) 14.3 % Eos % (Auto) 2.0 % Baso % (Auto) 0.6 % Neut # (Auto) 4.61 (1.4-6.5) K/uL Lymph # (Auto) 0.79 L (1.2-3.4) K/uL Bacon # (Auto) 0.93 H (0.11-0.59) K/uL Eos # (Auto) 0.13 (0-0.5) K/uL Baso # (Auto) 0.04 (0-0.2) K/uL Immature Gran # (Auto) 0.01 (0.00-0.02) K/uL PT 10.9 (9.0-12.0) Seconds INR 1.0 (0.9-1.1) APTT 26.0 (21.0-31.0) Seconds PTT Ratio 0.9 Sodium 136 (136-145) mmol/L Potassium 4.5 (3.5-5.1) mmol/L Chloride 95 L (98-107) mmol/L Carbon Dioxide 36 H (21-32) mmol/L Anion Gap 5.0 (3-11) BUN 21 H (7-18) mg/dl Creatinine 5.28 H* (0.6-1.4) mg/dl Est Cr Clr Drug Dosing 19.7 ml/min Est GFR ( Amer) 13.0 Est GFR (Non-Af Amer) 11.2 BUN/Creatinine Ratio 4.0 L (10-20) Glucose 88 (70-99) mg/dl Calcium 10.0 (8.5-10.1) mg/dl Phosphorus 3.2 (2.5-4.9) mg/dl Magnesium 2.2 (1.8-2.4) mg/dl Total Bilirubin 0.8 (0.2-1) mg/dl AST 20 (15-37) U/L ALT 31 (12-78) U/L Alkaline Phosphatase 146 H (45-117) U/L Troponin I < 0.015 (0-0.045) ng/ml Total Protein 9.2 H (6.4-8.2) gm/dl Albumin 4.3 (3.4-5.0) gm/dl Globulin 4.9 H (2.5-4.0) gm/dl Albumin/Globulin Ratio 0.9 (0.9-2) Lipase 104 (73-393) U/L TSH 1.590 (0.300-4.500) uIu/ml Administered Medications Carvedilol (Carvedilol 25 Mg Tab) [address] Stop: 07/18/20 22:29 Last Admin: 06/18/20 22:34 Dose: 50 mg Documented by: [id number] Clonidine HCl (Clonidine Hcl 0.1 Mg Tab) 0.[address] Stop: 07/18/20 22:29 Last Admin: 06/18/20 22:34 Dose: 0.1 mg Documented by: [id number] Miscellaneous (Velphoro- Order Awaiting Action) 1 ea N/A QS AVE Stop: 07/19/20 00:00 Last Admin: 06/18/20 23:35 Dose: Not Given Documented by: [id number] Rosuvastatin Calcium (Rosuvastatin Calcium 10 Mg Tab) [address] Stop: 07/18/20 22:29 Last Admin: 06/18/20 23:35 Dose: 10 mg Documented by: [id number] Discontinued Medications Sodium Chloride (Nss) 250 mls @ 999 mls/hr IV .Q16M ONE Stop: 06/18/20 18:50 Last Infusion: 06/18/20 19:34 Dose: 0 mls/hr Documented by: [id number] Admin: 06/18/20 19:14 Dose: 999 mls/hr Documented by: [id number] Blood Pressure Blood Pressure Findings: Normal blood pressure Blood Pressure Disposition: further management by hospitalist Discharge Plan Visit Data Chief Complaint: Syncope Stated Complaint: BLOOD PRESSURE DROPPED, PASSED OUT, PAIN IN ARM ED Provider: Lan Waldron Discharge Problem: Exertional chest pain, End-stage renal disease (ESRD), Syncope, History of coronary artery bypass graft Patient Disposition: Admitted As Inpatient Discharge Instructions Interventions: ED Discharge Assessment Last Done: 06/18/20 21:03 Discharge Problem: Syncope Qualifiers: Syncope type: unspecified Qualified Code(s): R55 - Syncope and collapse
[2020-06-18] MEDS ORDERED: POLYETHYLENE (MIRALAX) 17 GM PACK PO PRN (21:49)
[2020-06-18] MEDS ORDERED: LORATADINE 10 MG TAB PO PRN (21:49)
[2020-06-18] MEDS ORDERED: NITROGLYCERIN SL 0.4 MG/TAB TAB SL PRN ×2 (21:49)
[2020-06-18] MEDS ORDERED: ACETAMINOPHEN 325 MG TAB PO PRN (21:49)
[2020-06-18] MEDS: carvediloL 25 MG TAB PO SCH (22:34)
[2020-06-18] MEDS: cloNIDine HCL 0.1 MG TAB PO SCH (22:34)
--- NOTE | 2020-06-18 22:49 | History and Physical Report ---
DATE OF ADMISSION: 06/18/2020 CHIEF COMPLAINT: Syncope and chest pain. HISTORY OF PRESENT ILLNESS: This is a 54-year-old male with past medical history significant for CAD status post CABG, end-stage renal disease on hemodialysis, hypertension, anemia of chronic kidney disease, history of lupus, history of gastric ulcer, history of hyperlipidemia, history of hyperparathyroidism, obesity, who comes with syncope and chest pain on exertion. The patient gets syncope once every several weeks after dialysis. Today after dialysis, he had a syncope, which lasted for about 1 minute. There was no shaking of the body, no biting of the tongue, no incontinence. When he woke up, he was not confused.He is also having chest pain on exertion for the last several weeks. Walking uphill or any exertion makes him have chest pain in the left side of chest 10/10 in severity, no radiation. No other associated symptoms. The pain gets better with taking rest or taking nitroglycerin. Yesterday, took one nitroglycerin, which helped relieve the pain. He is also getting evaluated for renal transplant and is supposed to get a stress test in coming weeks in anticipation of transplant. The patient is currently in the ER, resting comfortably and hemodynamically stable, currently does not have any chest pain. Denies any dizziness. When he had syncope, there was sweating. Denies any headache, no dizziness, no blurred vision, no earache, no runny nose, no sore throat. Has dry cough for last 2 weeks. Denies any loss of sense of smell or taste. No fever, no chills, no shortness of breath, no nausea, no abdominal pain. His stools are always black because of the medications. No blood in the stools. He makes urine and denies any burning micturitions. No rash. Ambulates without any support. Appetite is okay. ALLERGIES: HYDRALAZINE. PAST MEDICAL HISTORY: As mentioned above. PAST SURGICAL HISTORY: CABG, carpal tunnel surgery, left heart catheterization, colonoscopy, EGDs, repair of detached thigh muscle, tonsillectomy and adenoidectomy, repair of the right inguinal hernia. MEDICATIONS: The patient is on clonidine 0.1 mg p.o. b.i.d., Crestor 10 mg p.o. daily, Coreg 50 mg p.o. b.i.d., Velphoro 500 mg 2 tablets t.i.d. with meals, omega 3 of 1000 mg p.o. daily, albuterol 2 puffs q. 4 hours p.r.n., loratadine 10 mg p.o. daily, nitroglycerin 0.4 mg sublingual p.r.n., aspirin 81 mg p.o. daily, vitamin D 1000 units p.o. daily. FAMILY HISTORY: Significant for father had arthritis, diabetes, hypertension; mother has hypertension, hyperlipidemia, thyroid disorder, arthritis. SOCIAL HISTORY: Single. No smoking, no alcohol, no drug use. REVIEW OF SYSTEMS: As per HPI. Rest of the review of systems negative. PHYSICAL EXAMINATION: GENERAL: The patient is of moderate build, not in acute distress. VITAL SIGNS: Temperature 36.5, pulse 80, respiratory rate 20, blood pressure 145/91, oxygen 99% on room air. HEENT: Pupils equal, round, and reactive to light. Oral mucosa moist. NECK: No JVD, no neck masses, no carotid bruits. CARDIOVASCULAR: S1, S2 heard, regular rate and rhythm, no murmur, no gallop. RESPIRATORY SYSTEM: Normal AP diameter. No accessory muscle use. No wheezing, no crackles. ABDOMEN: Soft, bowel sounds present, nontender. No distention. CENTRAL NERVOUS SYSTEM: Cranial nerves II-XII grossly intact. Nonfocal. EXTREMITIES: No edema, no erythema. LABORATORY DATA: WBC 6.5, hemoglobin 11.7, hematocrit 36.4, platelets 152. PT 10.9, INR 1, APTT 26. Sodium 136, potassium 4.5, chloride 95, bicarbonate 36, BUN 21, creatinine 5.2, serum glucose 88, calcium 10, phosphorus 3.2, magnesium 2.2, total bilirubin 0.8, AST 20, ALT 31, alkaline phosphatase 146. Troponin I less than 0.015. Lipase 1.5. IMAGING DATA: Chest x-ray, no acute findings. EKG: Normal sinus rhythm with a rate of 79, incomplete right bundle branch block, nonspecific ST abnormalities seen. ASSESSMENT AND PLAN: This is a 54-year-old male who presents with chest pain and syncope. 1. Chest pain on exertion, going on for several weeks. Initial EKG and troponin negative. Will follow the serial enzymes, echocardiogram. Keep n.p.o. after midnight and consult cardiology in the [facility] for further recommendation. 2. Syncope. Post dialysis, the patient gets syncope once in a while after dialysis. We will monitor. Follow echocardiogram and await cardiac input. 3. History of coronary artery disease status post coronary artery bypass graft. Continue his home dose of Coreg, aspirin, and statin. We will monitor. 4. End-stage renal disease, on hemodialysis. The patient had dialysis today. Next dialysis on Tuesday. If the patient stays in hospital on Tuesday will consult nephrology for dialysis. He follows with the [facility] nephrology. 5. History of hypertension. Continue his Coreg and clonidine. Will monitor his blood pressure. 6. Hyperlipidemia. Continue his statin. Follow his fasting lipid profile. 7. Anemia of chronic kidney disease. Hemoglobin is 11.7. We will follow the labs. 8. Deep venous thrombosis prophylaxis, sequential compression devices for now. 9. Disposition: Closely observe in the tele floor. Level 1 full code. Expect to discharge home and follow with family doctor. Social service to help with discharge planning. CHRISTIANE
[2020-06-18] MEDS: ROSUVASTATIN CALCIUM 10 MG TAB PO SCH (23:35)
[2020-06-19 05:28] LABS: Basophils # (auto) 0.02 K/uL (0-0.2); Basophils % (auto) 0.4 %; Eosinophils # (auto) 0.17 K/uL (0-0.5); Eosinophils % (auto) 3.3 %; Hematocrit (blood only) 31.5 % (42-52); Hemoglobin 10.3 g/dL (14.0-18.0); Immature Granulocytes # (auto) 0.02 K/uL (0.00-0.02); Immature Granulocytes % (auto) 0.4 %; Lymphocytes # (auto) 0.76 K/uL (1.2-3.4); Lymphocytes % (auto) 14.9 %; Mean Corpuscular Hemoglobin 33.3 pg (25-34); Mean Corpuscular Hgb Conc 32.7 g/dL (32-36); Mean Corpuscular Volume 101.9 fL (80-100); Mean Platelet Volume 9.4 fL (7.4-10.4); Monocytes # (auto) 0.99 K/uL (0.11-0.59); Monocytes % (auto) 19.4 %; Neutrophils # (auto) 3.13 K/uL (1.4-6.5); Neutrophils % (auto) 61.6 %; Platelet Count 136 K/uL (130-400); RDW Coefficient of Variation 16.2 % (11.5-14.5); RDW Standard Deviation 57.8 fL (36.4-46.3); Red Blood Count 3.09 M/uL (4.7-6.1); White Blood Count 5.09 K/uL (4.8-10.8)
[2020-06-19 06:09] LABS: BUN Creatinine Ratio 4.7 (10-20); Blood Urea Nitrogen 32 mg/dl (7-18); Calcium 9.5 mg/dl (8.5-10.1); Carbon Dioxide 35 mmol/L (21-32); Chloride 96 mmol/L (98-107); Chol HDL Ratio 5; Cholesterol 208 mg/dl (0-200); Creatinine Clr Calc Pharmacy 15.3 ml/min; Est GFR (African American) 9.5; Est GFR (Non-African American) 8.2; Glucose 91 mg/dl (70-99); HDL Cholesterol 44 mg/dl; LDL Cholesterol Calculated 122 mg/dl; Magnesium 2.2 mg/dl (1.8-2.4); Potassium 5.1 mmol/L (3.5-5.1); Sodium 135 mmol/L (136-145); Triglycerides 211 mg/dl (0-150); Troponin I < 0.015 ng/ml (0-0.045); VLDL Cholesterol 42 mg/dl
[2020-06-19] MEDS: carvediloL 25 MG TAB PO SCH ×2 (09:32→22:04)
[2020-06-19] MEDS: CHOLECALCIFEROL 1,000 UNITS 25 MCG TAB PO SCH (09:32)
[2020-06-19] MEDS: cloNIDine HCL 0.1 MG TAB PO SCH (09:32)
[2020-06-19] MEDS: ASPIRIN 81 MG ECTAB PO SCH (09:32)
--- NOTE | 2020-06-19 11:56 | Cardiology Consultation ---
Date of Consultation June 19, 2020 Assessment & Plan (1) Syncope: Patient with recurrent episodes of syncope postdialysis and difficulties with labile hypertension. Previously nitrates have been helpful with underlying coronary artery disease and angina but poorly tolerated due to hypotension. Postdialysis hypotension has been a ongoing issue for several months Initial evaluation demonstrates preserved LV systolic function with severe left hypertrophy. EKGs and cardiac enzymes negative for myocardial injury or ischemia Plan: Dobutamine stress echocardiography will be performed today. This was previously scheduled as part of pretransplant evaluation. Depending on findings may consider reduction in carvedilol dosing possible substitution of low-dose amlodipine. This medication pre-dialysis was discontinued due to significant peripheral edema We will follow as course progresses If stress test abnormal patient may warrant repeat diagnostic cardiac catheterization (2) Exertional chest pain: (3) History of coronary artery bypass graft: (4) End-stage renal disease (ESRD): History of Present Illness Reason for Consultation: Syncope postdialysis, chest pressure Requesting Physician: Dr. Lynn Attending Physician: Bassem Lynn MD History of Present Illness Patient is a complex 54-year-old male with ongoing multiple medical issues which include 1. Long-standing severe and labile hypertension. 2. Premature ischemic heart disease status post coronary artery bypass grafting in September 2009 (ACSAREZ to LAD and a SVG to the left circumflex OM1, OM 2) 3. End-stage renal insufficiency with on hemodialysis replacement via left arm fistula 4. Anemia of chronic disease 5. Dyslipidemia with poor tolerance to statin therapy 6. History of gastric ulcer Patient is referred for hospitalization after syncopal event postdialysis yesterday. Patient has been experiencing syncope and near syncope after dialysis for several months. In addition he has been experiencing in the last 2 to 3 weeks chest pressure sensation with ambulation. Symptoms are described as mild but with left shoulder radiation. He has used sublingual nitroglycerin on one occasion He denies fevers chills unexplained infections. Notes no bleeding difficulties. Notes no melena medication dysuria hematuria. Appetite and weight have been generally stable. He still is very active about home and job Initial evaluation since ER presentation demonstrated no ischemia by EKG or cardiac enzyme criteria Allergies Allergy/AdvReac Type Severity Reaction Status Date / Time hydralazine Allergy Intermediate STIFF Verified 06/18/20 19:19 JOINTS Home Medications Home Medications Medication Instructions Recorded Confirmed Type aspirin [Aspirin Low Dose] 81 mg PO QAM 07/10/18 06/18/20 History carvedilol [Coreg] 50 mg PO BID 07/10/18 06/18/20 History cholecalciferol (vitamin D3) 1,000 unit PO QAM 07/10/18 06/18/20 History [Vitamin D3] nitroglycerin [Nitrostat] 1 dose SUBLINGUAL DIRECTED PRN 07/10/18 06/18/20 History rosuvastatin [Crestor] 10 mg PO HS 07/10/18 06/18/20 History loratadine 10 mg PO QAM PRN 01/02/19 06/18/20 History omega [id number]-fish oil [Fish Oil] 1 cap PO QAM 01/02/19 06/18/20 History acetaminophen [Tylenol Extra 1,000 mg PO Q8H PRN 01/18/19 06/18/20 History Strength] clonidine HCl 0.1 mg PO BID 06/18/20 06/18/20 History sucroferric oxyhydroxide [Velphoro] 1,000 mg PO TIDM 06/18/20 06/18/20 History Patient History Medical History Anemia CHRONIC; BASELINE HGB 10'S PER CHART REVIEW CAD (coronary artery disease) S/P CABG X 3 (2008) Chronic kidney disease STAGE 5- PLAN FOR FUTURE DIALYSIS; NO PRIOR DIALYSIS Deep vein thrombosis LLE DVT 2016; NO ISSUES SINCE History of gastric ulcer PER RECORDS Hyperlipidemia Hypertension Inflammatory arthritis Myocardial Infarction 2008 Obesity Surgical History H/O eye surgery AN INFANT FOR STRABISMUS History of cardiac cath S/P CABG X 3 (2008)= CASAREZ-LAD, SVG-OM2, SVG-OM3 2017= PATENT BYPASS GRAFTS History of carpal tunnel release LEFT History of colonoscopy History of coronary artery bypass graft S/P CABG X 3 (2008): CASAREZ-LAD, SVG-OM2, SVG-OM3 History of esophagogastroduodenoscopy (EGD) History of herniorrhaphy INGUINAL HERNIA REPAIR History of tonsillectomy Family History Father Family history of diabetes mellitus Social History Smoking Status: Never smoker Second Hand Exposure: No; Hx Alcohol Use: No Hx Substance Use: No Preferred Language: Danish Communication Ability: Effective Visual Impairment: No Limitations [employer] Required: No Beliefs That Will Affect Care: None marital status: Single Current Living Situation: Family Other Information That Helps Us Care for You: No Feels Safe at Home: Yes Safety Concerns: Feels Safe At This Time Review of Systems Review of Systems: All systems reviewed & are unremarkable except as noted in HPI & below Physical Exam Constitutional: WD/WN, vitals as above Eyes: PERRL ENMT: external ear and nose normal, oropharynx normal Neck: trachea midline, no thyromegaly + thick neck Respiratory: normal respiratory effort, lungs clear to auscultation Cardiovascular: Rate/Rhythm: regular rate and regular rhythm Heart Sounds: normal S1, normal S2 and + murmur (Grade 1/6 systolic); no gallop Palpation: normal PMI Vessels: normal carotid upstroke and radial pulses present; no JVD and no carotid bruit Extremities: + AV fistula; no edema Left arm Gastrointestinal (Abdomen): normal bowel sounds, soft, nontender, no hepatosplenomegaly Musculoskeletal: no cyanosis or clubbing, extremities motor strength 5/5 Skin: no rashes, warm and dry Neurologic: PERRL, EOMI, accommodation nl, no face palsy, no dysarthria Psychiatric: A+Ox3, euthymic affect Results & Data ([facility]) Vital Signs (Past 12 Hours) Vital Signs Temp Pulse Pulse Resp BP Pulse Ox 06/19/20 11:20 37 C 75 18 104/69 95 06/19/20 09:30 81 06/19/20 08:37 37.1 C 71 18 122/73 96 06/19/20 04:04 36.8 C 73 18 120/79 97 Laboratory Results Laboratory Results - last 24 hr 06/18/20 06/18/20 06/18/20 18:05 18:05 18:05 WBC 6.51 RBC 3.55 L Hgb 11.7 L Hct 36.4 L MCV 102.5 H MCH 33.0 MCHC 32.1 RDW Std Deviation 56.8 H RDW Coeff of Adam 16.0 H Plt Count 152 MPV 9.9 Immature Gran % (Auto) 0.2 Neut % (Auto) 70.8 Lymph % (Auto) 12.1 [place] % (Auto) 14.3 Eos % (Auto) 2.0 Baso % (Auto) 0.6 Neut # (Auto) 4.61 Lymph # (Auto) 0.79 L [place] # (Auto) 0.93 H Eos # (Auto) 0.13 Baso # (Auto) 0.04 Immature Gran # (Auto) 0.01 PT 10.9 INR 1.0 APTT 26.0 PTT Ratio 0.9 Sodium 136 Potassium 4.5 Chloride 95 L Carbon Dioxide 36 H Anion Gap 5.0 BUN 21 H Creatinine 5.28 H* Est Cr Clr Drug Dosing 19.7 Est GFR ( Amer) 13.0 Est GFR (Non-Af Amer) 11.2 BUN/Creatinine Ratio 4.0 L Glucose 88 Calcium 10.0 Phosphorus 3.2 Magnesium 2.2 Total Bilirubin 0.8 AST 20 ALT 31 Alkaline Phosphatase 146 H Troponin I < 0.015 Total Protein 9.2 H Albumin 4.3 Globulin 4.9 H Albumin/Globulin Ratio 0.9 Triglycerides Cholesterol LDL Cholesterol, Calc VLDL Cholesterol, Calc HDL Cholesterol Cholesterol/HDL Ratio Lipase 104 TSH 1.590 06/18/20 06/19/20 06/19/20 22:53 05:07 05:07 WBC 5.09 RBC 3.09 L Hgb 10.3 L Hct 31.5 L MCV 101.9 H MCH 33.3 MCHC 32.7 RDW Std Deviation 57.8 H RDW Coeff of Adam 16.2 H Plt Count 136 MPV 9.4 Immature Gran % (Auto) 0.4 Neut % (Auto) 61.6 Lymph % (Auto) 14.9 [place] % (Auto) 19.4 Eos % (Auto) 3.3 Baso % (Auto) 0.4 Neut # (Auto) 3.13 Lymph # (Auto) 0.76 L [place] # (Auto) 0.99 H Eos # (Auto) 0.17 Baso # (Auto) 0.02 Immature Gran # (Auto) 0.02 PT INR APTT PTT Ratio Sodium 135 L Potassium 5.1 Chloride 96 L Carbon Dioxide 35 H Anion Gap 4.0 BUN 32 H D Creatinine 6.83 H* D Est Cr Clr Drug Dosing 15.3 Est GFR ( Amer) 9.5 Est GFR (Non-Af Amer) 8.2 BUN/Creatinine Ratio 4.7 L Glucose 91 Calcium 9.5 Phosphorus Magnesium 2.2 Total Bilirubin AST ALT Alkaline Phosphatase Troponin I < 0.015 < 0.015 Total Protein Albumin Globulin Albumin/Globulin Ratio Triglycerides 211 H Cholesterol 208 H LDL Cholesterol, Calc 122 VLDL Cholesterol, Calc 42 HDL Cholesterol 44 Cholesterol/HDL Ratio 5 Lipase TSH 06/19/20 10:34 WBC RBC Hgb Hct MCV MCH MCHC RDW Std Deviation RDW Coeff of Adam Plt Count MPV Immature Gran % (Auto) Neut % (Auto) Lymph % (Auto) [place] % (Auto) Eos % (Auto) Baso % (Auto) Neut # (Auto) Lymph # (Auto) [place] # (Auto) Eos # (Auto) Baso # (Auto) Immature Gran # (Auto) PT INR APTT PTT Ratio Sodium Potassium Chloride Carbon Dioxide Anion Gap BUN Creatinine Est Cr Clr Drug Dosing Est GFR ( Amer) Est GFR (Non-Af Amer) BUN/Creatinine Ratio Glucose Calcium Phosphorus Magnesium Total Bilirubin AST ALT Alkaline Phosphatase Troponin I < 0.015 Total Protein Albumin Globulin Albumin/Globulin Ratio Triglycerides Cholesterol LDL Cholesterol, Calc VLDL Cholesterol, Calc HDL Cholesterol Cholesterol/HDL Ratio Lipase TSH Diagnostic Findings Cardiac catheterization 04/02/2017 Comments: There is a 70% proximal LAD lesion and a 60% mid LAD lesion with a patent CASAREZ that attaches to the distal LAD.The SVG to OM2 and OM3 are both patent.The RCA has mild luminal irregularities.The LVEDP = 13 mmHg (normal)The bypass grafts provide complete revascularization to the heart.3 of 3 bypass grafts are patent. (1) Syncope Syncope type: unspecified Qualified Code(s): R55 - Syncope and collapse
[2020-06-19] MEDS ORDERED: DOBUTamine HCL 12.5 MG/ML 20 ML VIAL IV ONE (12:08)
[2020-06-19] MEDS ORDERED: METOPROLOL TARTRATE 1 MG/ML VIAL IV ONE ×2 (12:08→14:17)
[2020-06-19] MEDS ORDERED: ATROPINE SULFATE 0.1 MG/ML 10ML SYR IV ONE (12:08)
--- NOTE | 2020-06-19 14:51 | Communication Note ---
Date of Service: June 19, 2020 Patient underwent dobutamine stress echocardiogram today without cardiac symptoms or evidence of ischemia by EKG or echocardiographic criteria. Blood pressures remain labile Suspect clonidine contributing to lability in blood pressures and symptoms Will discontinue clonidine and substitute amlodipine 5 mg p.o. daily. Patient previously on this medication but discontinued due to edema prior to dialysis We will keep overnight Recommend dialysis tomorrow in hospital
[2020-06-19] MEDS ORDERED: AMLODIPINE BESYLATE 5 MG TAB PO SCH (15:30)
--- NOTE | 2020-06-19 19:53 | Electrocardiogram Report ---
Test Reason : Blood Pressure : / mmHG Vent. Rate : 079 BPM Atrial Rate : 079 BPM P-R Int : 158 ms QRS Dur : 112 ms QT Int : 404 ms P-R-T Axes : 042 -11 082 degrees QTc Int : 463 ms Normal sinus rhythm Incomplete right bundle branch block Nonspecific ST abnormality Possible Inferior infarct Abnormal ECG When compared with ECG of 07-JAN-2019 10:01, Premature ventricular complexes are no longer Present Confirmed by Willard Charlton ([id number]) on 06/19/2020 7:53:01 PM Referred By: REFERRED SELF Confirmed By:Willard Charlton
--- NOTE | 2020-06-19 20:05 | Electrocardiogram Report ---
Test Reason : Blood Pressure : / mmHG Vent. Rate : 073 BPM Atrial Rate : 073 BPM P-R Int : 166 ms QRS Dur : 110 ms QT Int : 404 ms P-R-T Axes : 050 012 078 degrees QTc Int : 445 ms Normal sinus rhythm Incomplete right bundle branch block Borderline ECG When compared with ECG of 18-JUN-2020 17:56, No significant change was found Confirmed by Willard Charlton ([id number]) on 06/19/2020 8:04:51 PM Referred By: REFERRED SELF Confirmed By:Willard Charlton
[2020-06-19] MEDS ORDERED: ZOLPIDEM TARTRATE 5 MG TAB PO STA (21:16)
[2020-06-19] MEDS: ROSUVASTATIN CALCIUM 10 MG TAB PO SCH (22:04)
--- NOTE | 2020-06-19 23:27 | Hospitalist Progress Note ---
Date of Service June 19, 2020 Assessment & Plan (1) Syncope: Episode of syncope at end of hemodialysis treatment. Cardiovascular meds being adjusted. (2) Exertional chest pain: Known CAD. Cardiology consulted. Acute OR ruled out. Dobutamine stress echo negative for stress-induced ischemia. (3) CAD (coronary artery disease): CAD, s/p OR, s/p CABG. Acute OR ruled out. Dobutamine stress echo negative for stress-induced ischemia. Continue ASA, carvedilol, statin. (4) Hypertension: Seen in consultation by Cardiology. [place] that clonidine could be contributing to syncope with hemodialysis. Clonidine discontinued. Started on amlodipine. Continue carvedilol. (5) CKD (chronic kidney disease) stage V requiring chronic dialysis: Management per Nephrology. Best to observe during inpatient hemodialysis before discharge given syncope and medication changes. (6) DVT prophylaxis: SCD's ordered. Ambulate. (7) Discharge planning issues: Anticipated discharge to home. Internal Medicine follow-up with Dr. Chaves. Nephrology follow-up with Dr. Diop. Admission and Anticipated Discharge Date Admission Date: June 18, 2020 Subjective Recheck for syncope and chest pain. Patient seen in their room around 1630. Syncopal episode yesterday at end of hemodialysis. Recent exertional chest pain. Seen in consultation by Cardiology today. No stress-induced ischemia during dobutamine stress echo. No CP or SOB today. No further syncopal episodes. Telemetry data reviewed. NSR 70's - 80's. Review of Systems: Constitutional- no fever. Cardiac- no chest pain. Pulmonary- no cough or SOB. GI- no nausea, vomiting, diarrhea, melena, hematochezia. - oliguria, no dysuria. Otherwise, as noted above. Physical Exam Constitutional: no acute distress Respiratory: no respiratory distress Auscultation: lungs clear to auscultation bilaterally Cardiovascular: Rate/Rhythm: regular rate and regular rhythm Heart Sounds: + murmur (I/ sys murmur at base); no gallop and no cardiac rub Vessels: no JVD Extremities: + edema (trace pretibial); no calf tenderness Gastrointestinal (Abdomen): normal bowel sounds, soft, nontender, no hepatosplenomegaly Musculoskeletal: Extremities: no cyanosis AV fistula LUE Skin: no rashes, warm and dry Psychiatric: Orientation: alert and oriented x 3 Results & Data Results & Data ([facility]) Vital Signs (Past 12 Hours) Vital Signs Temp Pulse Resp BP Pulse Ox 06/19/20 20:17 37.1 C 77 18 124/62 95 06/19/20 18:00 114/72 06/19/20 15:40 36.8 C 91 H 21 111/77 97 06/19/20 14:36 36.9 C 93 H 18 92/64 L 94 06/19/20 11:20 37 C 75 18 104/69 95 Laboratory Results Laboratory Results - last 24 hr 06/18/20 06/19/20 06/19/20 22:53 05:07 05:07 WBC 5.09 RBC 3.09 L Hgb 10.3 L Hct 31.5 L MCV 101.9 H MCH 33.3 MCHC 32.7 RDW Std Deviation 57.8 H RDW Coeff of Adam 16.2 H Plt Count 136 MPV 9.4 Immature Gran % (Auto) 0.4 Neut % (Auto) 61.6 Lymph % (Auto) 14.9 [place] % (Auto) 19.4 Eos % (Auto) 3.3 Baso % (Auto) 0.4 Neut # (Auto) 3.13 Lymph # (Auto) 0.76 L [place] # (Auto) 0.99 H Eos # (Auto) 0.17 Baso # (Auto) 0.02 Immature Gran # (Auto) 0.02 Sodium 135 L Potassium 5.1 Chloride 96 L Carbon Dioxide 35 H Anion Gap 4.0 BUN 32 H D Creatinine 6.83 H* D Est Cr Clr Drug Dosing 15.3 Est GFR ( Amer) 9.5 Est GFR (Non-Af Amer) 8.2 BUN/Creatinine Ratio 4.7 L Glucose 91 Calcium 9.5 Magnesium 2.2 Troponin I < 0.015 < 0.015 Triglycerides 211 H Cholesterol 208 H LDL Cholesterol, Calc 122 VLDL Cholesterol, Calc 42 HDL Cholesterol 44 Cholesterol/HDL Ratio 5 06/19/20 10:34 WBC RBC Hgb Hct MCV MCH MCHC RDW Std Deviation RDW Coeff of Adam Plt Count MPV Immature Gran % (Auto) Neut % (Auto) Lymph % (Auto) [place] % (Auto) Eos % (Auto) Baso % (Auto) Neut # (Auto) Lymph # (Auto) [place] # (Auto) Eos # (Auto) Baso # (Auto) Immature Gran # (Auto) Sodium Potassium Chloride Carbon Dioxide Anion Gap BUN Creatinine Est Cr Clr Drug Dosing Est GFR ( Amer) Est GFR (Non-Af Amer) BUN/Creatinine Ratio Glucose Calcium Magnesium Troponin I < 0.015 Triglycerides Cholesterol LDL Cholesterol, Calc VLDL Cholesterol, Calc HDL Cholesterol Cholesterol/HDL Ratio (1) Syncope Syncope type: unspecified Qualified Code(s): R55 - Syncope and collapse
[2020-06-20 07:16] LABS: BUN Creatinine Ratio 5.2 (10-20); Calcium 9.3 mg/dl (8.5-10.1); Creatinine Clr Calc Pharmacy 10.3 ml/min; Est GFR (African American) 5.9; Est GFR (Non-African American) 5.1; Potassium 4.9 mmol/L (3.5-5.1)
--- NOTE | 2020-06-20 08:44 | Electrocardiogram Report ---
Test Reason : Blood Pressure : / mmHG Vent. Rate : 072 BPM Atrial Rate : 072 BPM P-R Int : 168 ms QRS Dur : 114 ms QT Int : 408 ms P-R-T Axes : 056 006 072 degrees QTc Int : 446 ms Normal sinus rhythm Incomplete right bundle branch block Borderline ECG When compared with ECG of 19-JUN-2020 07:05, No significant change was found Confirmed by Evelio Eldridge ([id number]) on 06/20/2020 8:43:42 AM Referred By: REFERRED SELF Confirmed By:Evelio Eldridge
--- NOTE | 2020-06-20 09:11 | Cardiology Progress Note ---
Date of Service June 20, 2020 Assessment & Plan (1) Syncope: Patient with recurrent episodes of syncope postdialysis and difficulties with labile hypertension. Previously nitrates have been helpful with underlying coronary artery disease and angina but poorly tolerated due to hypotension. Postdialysis hypotension has been a ongoing issue for several months Initial evaluation demonstrates preserved LV systolic function with severe left hypertrophy. EKGs and cardiac enzymes negative for myocardial injury or ischemia Plan: Dobutamine stress echocardiography was negative for stress-induced ischemia with preserved LV systolic function. Clonidine discontinued without rebound hypertension overnight. We will continue amlodipine begun with close clinical management post dialysis. Patient with significantly stiff vasculature secondary to longstanding hypertension, caution with postdialysis hypotension will be continuously needed Patient with appointment with cardiology on 06/23/2020 (2) Exertional chest pain: (3) History of coronary artery bypass graft: (4) End-stage renal disease (ESRD): Admission and Anticipated Discharge Date Admission Date: June 18, 2020 Subjective Patient was seen and examined, chart, medications, telemetry reviewed. Patient without difficulty overnight other than difficulty sleeping after dobutamine atropine infusion. Blood pressures have been stable. No rebound hypertension off clonidine No chest pains or worsening shortness of breath. Anticipates dialysis later today Physical Exam Constitutional: WD/WN, vitals as above Eyes: PERRL ENMT: external ear and nose normal, oropharynx normal Neck: trachea midline, no thyromegaly + thick neck Respiratory: normal respiratory effort, lungs clear to auscultation Cardiovascular: Rate/Rhythm: regular rate and regular rhythm Heart Sounds: normal S1, normal S2 and + murmur (Grade 1/6 systolic); no gallop Palpation: normal PMI Vessels: normal carotid upstroke and radial pulses present; no JVD and no carotid bruit Extremities: + AV fistula; no edema Gastrointestinal (Abdomen): normal bowel sounds, soft, nontender, no hepatosplenomegaly Musculoskeletal: no cyanosis or clubbing, extremities motor strength 5/5 Skin: no rashes, warm and dry Neurologic: PERRL, EOMI, accommodation nl, no face palsy, no dysarthria Psychiatric: A+Ox3, euthymic affect Results & Data ([facility]) Vital Signs (Past 12 Hours) Vital Signs Temp Pulse Pulse Resp BP Pulse Ox 06/20/20 08:13 37.0 C 72 20 117/69 95 09/18/20 04:17 36.8 C 71 20 120/85 96 06/20/20 01:00 81 06/19/20 23:30 37.2 C 76 18 129/80 96 (1) Syncope Syncope type: unspecified Qualified Code(s): R55 - Syncope and collapse
--- NOTE | 2020-06-20 10:04 | Nephrology Consultation ---
Date of Consultation June 20, 2020 Assessment & Plan (1) End-stage renal disease (ESRD): Ed has ESRD secondary to hypertensive nephrosclerosis, on hemodialysis Tuesday, Tuesday, Tuesday. Admitted with post dialysis hypotension, near syncope and exertional CP. cardial w/u was negative. Clonidine was stopped but BP remained acceptable. He is due for dialysis today, currently electrolyte, volume status acceptable. --will schedule for dialysis today for 4 hours, UF as tolerated, monitor BP and try to avoid hypotension. Discussed about the importance of fluid restriction to avoid high UF to prevent complication of post dialysis hypotension, syncope. --continue on renal cap and phosphate binder with meal --avoid IV fluid, continue on renal diet, dose medications for GFR less than 10 Will follow Thank you for the consult. It was a pleasure to see Ed. (2) Hypertension: (3) Anemia: (4) Exertional chest pain: (5) Secondary hyperparathyroidism of renal origin: History of Present Illness Reason for Consultation: ESRD on HD Attending Physician: Bassem Lynn MD History of Present Illness Ed Nancy is a 54 Y O ma with ESRD on HD, CAD s/p CABG, HTN [facility] with exertional CP and post dialysis hypotension/syncope.Nephrology consult requested to manage HD while in hospital. Ed has end-stage renal disease secondary to hypertensive nephropathy, on dialysis since November 2018, dialysis on Tuesday, Tuesday, Tuesday at [facility] unit in [place] via left RC AVF.. Last dialysis was last Tuesday , completed full treatment. Immediately after dialysis he started to feel unwell and felt like passing out. He has found to have low BP as well. He was send to ER for further evaluation. He also reported exertional CP occasionally for few weeks prior to event. with prior h/o CAD. s/p CABG, he was admitted for further cardial evaluation. Since admission he has not been having any SOB, CP. BP has been acceptable. Dobutamine stress test was negative. currently volume status, electrolyte acceptable. Due for dialysis today. Has history of coronary artery disease, status post CABG. He has been having issues with high IDWG requiring high UF which at times was complicated by post dialysis hypotension. He has been on Clonidine which was DCed yesterday. BP has been acceptable. Overall feeing better today. Allergies Allergy/AdvReac Type Severity Reaction Status Date / Time hydralazine Allergy Intermediate STIFF Verified 06/18/20 19:19 JOINTS Home Medications Home Medications Medication Instructions Recorded Confirmed Type aspirin [Aspirin Low Dose] 81 mg PO QAM 07/10/18 06/18/20 History carvedilol [Coreg] 50 mg PO BID 07/10/18 06/18/20 History cholecalciferol (vitamin D3) 1,000 unit PO QAM 07/10/18 06/18/20 History [Vitamin D3] nitroglycerin [Nitrostat] 1 dose SUBLINGUAL DIRECTED PRN 07/10/18 06/18/20 History rosuvastatin [Crestor] 10 mg PO HS 07/10/18 06/18/20 History loratadine 10 mg PO QAM PRN 01/02/19 06/18/20 History omega 9-fef-iqu-fish oil [Fish Oil] 1 cap PO QAM 01/02/19 06/18/20 History acetaminophen [Tylenol Extra 1,000 mg PO Q8H PRN 01/18/19 06/18/20 History Strength] clonidine HCl 0.1 mg PO BID 06/18/20 06/18/20 History sucroferric oxyhydroxide [Velphoro] 1,000 mg PO TIDM 06/18/20 06/18/20 History Patient History Medical History (Updated 06/19/20 @ 23:21 by Bassem Lynn MD) Anemia CHRONIC; BASELINE HGB 10'S PER CHART REVIEW CAD (coronary artery disease) S/P CABG X 3 (2008) S/P NM CKD (chronic kidney disease) stage V requiring chronic dialysis Deep vein thrombosis LLE DVT 2016; NO ISSUES SINCE History of gastric ulcer PER RECORDS Hyperlipidemia Hypertension Inflammatory arthritis Obesity Secondary hyperparathyroidism of renal origin Surgical History (Updated 06/19/20 @ 23:21 by Bassem Lynn MD) H/O eye surgery AN INFANT FOR STRABISMUS History of cardiac cath S/P CABG X 3 (2008)= CASAREZ-LAD, SVG-OM2, SVG-OM3 2017= PATENT BYPASS GRAFTS History of carpal tunnel release LEFT History of colonoscopy History of coronary artery bypass graft S/P CABG X 3 (2008): CASAREZ-LAD, SVG-OM2, SVG-OM3 History of esophagogastroduodenoscopy (EGD) History of herniorrhaphy INGUINAL HERNIA REPAIR History of tonsillectomy Family History Father Family history of diabetes mellitus Social History Smoking Status: Never smoker Second Hand Exposure: No; Hx Alcohol Use: No Hx Substance Use: No Preferred Language: Uzbek Communication Ability: Effective Visual Impairment: No Limitations Soc Analyst Required: No Beliefs That Will Affect Care: None marital status: Single Current Living Situation: Family Other Information That Helps Us Care for You: No Feels Safe at Home: Yes Safety Concerns: Feels Safe At This Time Review of Systems Review of Systems: All systems reviewed & are unremarkable except as noted in HPI & below Physical Exam Constitutional: WD/WN, vitals as above well developed and well nourished; no acute distress Eyes: PERRL, conjunctivae normal, anicteric sclerae ENMT: external ear and nose normal, oropharynx normal Ears: no hearing impairment Neck: trachea midline Respiratory: normal respiratory effort, lungs clear to auscultation no cough Auscultation: no crackles, no rales and no wheezes Cardiovascular: RRR, no murmur, no edema Extremities: + AV fistula Gastrointestinal (Abdomen): normal bowel sounds, soft, nontender, no hepatosplenomegaly Percussion/Palpation: abdomen nontender, no guarding and abdomen not rigid Musculoskeletal: Extremities: extremities normal to inspection Gait: normal gait Skin: no rashes, warm and dry Neurologic: moves all extremities and awake Psychiatric: A+Ox3, euthymic affect Results & Data ([facility]) Vital Signs (Past 12 Hours) Vital Signs Temp Pulse Pulse Resp BP BP Pulse Ox 06/20/20 09:40 69 123/72 06/20/20 09:23 65 122/76 06/20/20 09:16 37.2 C 67 06/20/20 08:13 37.0 C 72 20 117/69 95 06/20/20 04:17 36.8 C 71 20 120/85 96 06/20/20 01:00 81 06/19/20 23:30 37.2 C 76 18 129/80 96 PG Care Time/CCT Total # of Minutes Spent Total Time Spent with Patient: Total time spent is greater than 50% in coordination of care (as documented) at patient's floor/unit and/or counseling patient: Coding Level of Care Code 25994 Inpt Consult Level 5 Diagnoses End-stage renal disease (ESRD) N18.6 Hypertension I10 Anemia D64.9 Exertional chest pain R07.9 Secondary hyperparathyroidism of renal origin N25.81
[2020-06-20] MEDS ORDERED: AMLODIPINE BESYLATE 5 MG TAB PO ONE (13:57)
[2020-06-20] MEDS ORDERED: carvediloL 25 MG TAB PO ONE (14:02)
[2020-06-20] MEDS: ASPIRIN 81 MG ECTAB PO SCH (14:47)
[2020-06-20] MEDS: CHOLECALCIFEROL 1,000 UNITS 25 MCG TAB PO SCH (14:47)
--- NOTE | 2020-06-20 15:17 | Hospitalist Progress Note ---
Date of Service June 20, 2020 Assessment & Plan (1) Syncope: Episode of syncope at end of hemodialysis treatment day of admission. Seen in consultation by Cardiology. Syncope probably secondary to combination of cardiovascular meds + volume changes from hemodialysis. Cardiovascular meds adjusted: clonidine stopped amlodipine 5 mg daily started carvedilol 50 mg BID continued No arrhythmias noted on telemetry. (2) Exertional chest pain: Known CAD. Cardiology consulted. Acute CA ruled out. Dobutamine stress echo negative for stress-induced ischemia. (3) CAD (coronary artery disease): CAD, s/p CA, s/p CABG. Acute CA ruled out. Dobutamine stress echo negative for stress-induced ischemia. Continue ASA, carvedilol, statin. (4) Hypertension: Seen in consultation by Cardiology. [place] that clonidine could be contributing to syncope with hemodialysis. Clonidine discontinued. Started on amlodipine. Continue carvedilol. (5) CKD (chronic kidney disease) stage V requiring chronic dialysis: Management per Nephrology. Best to observe during inpatient hemodialysis before discharge given syncope and medication changes. (6) DVT prophylaxis: SCD's ordered. (7) Discharge planning issues: Discharge to home. Internal Medicine follow-up with Dr. Chaves. Nephrology follow-up with Dr. Diop. Admission and Anticipated Discharge Date Admission Date: June 18, 2020 Subjective Recheck for syncope and chest pain. Patient seen in their room around 1410. Underwent hemodialysis today. No CP, SOB, lightheadedness. Ready to go home. Physical Exam Constitutional: no acute distress Respiratory: no respiratory distress Auscultation: lungs clear to auscultation bilaterally Cardiovascular: Rate/Rhythm: regular rate and regular rhythm Heart Sounds: + murmur (I/ sys murmur at base); no gallop and no cardiac rub Vessels: no JVD Extremities: + edema (trace pretibial); no calf tenderness Gastrointestinal (Abdomen): normal bowel sounds, soft, nontender, no hepatosplenomegaly Musculoskeletal: Extremities: no cyanosis Skin: no rashes, warm and dry Psychiatric: Orientation: alert and oriented x 3 Results & Data Results & Data ([facility]) Vital Signs (Past 12 Hours) Vital Signs Temp Pulse Pulse Resp BP BP Pulse Ox 06/20/20 13:19 37.1 C 74 129/74 06/20/20 12:39 74 125/70 06/20/20 12:00 74 125/70 06/20/20 11:40 74 101/70 06/20/20 11:20 74 109/68 06/20/20 11:00 73 114/68 06/20/20 10:40 72 120/70 06/20/20 10:20 70 121/72 06/20/20 10:00 70 118/74 06/20/20 09:40 69 123/72 06/20/20 09:23 65 122/76 06/20/20 09:16 37.2 C 67 06/20/20 08:13 37.0 C 72 20 117/69 95 06/20/20 04:17 36.8 C 71 20 120/85 96 (1) Syncope Syncope type: unspecified Qualified Code(s): R55 - Syncope and collapse
--- NOTE | 2020-06-22 21:33 | Discharge Summary ---
Date of Service Date of Admission: 06/18/20 Date of Discharge: 06/20/20 Admission HPI Per Admitting Provider This is a 54-year-old male with past medical history significant for CAD status post CABG, end-stage renal disease on hemodialysis, hypertension, anemia of chronic kidney disease, history of lupus, history of gastric ulcer, history of hyperlipidemia, history of hyperparathyroidism, obesity, who comes with syncope and chest pain on exertion. The patient gets syncope once every several weeks after dialysis. Today after dialysis, he had a syncope, which lasted for about 1 minute. There was no shaking of the body, no biting of the tongue, no incontinence. When he woke up, he was not confused.He is also having chest pain on exertion for the last several weeks. Walking uphill or any exertion makes him have chest pain in the left side of chest 10/10 in severity, no radiation. No other associated symptoms. The pain gets better with taking rest or taking nitroglycerin. Yesterday, took one nitroglycerin, which helped relieve the pain. He is also getting evaluated for renal transplant and is supposed to get a stress test in coming weeks in anticipation of transplant. The patient is currently in the ER, resting comfortably and hemodynamically stable, currently does not have any chest pain. Denies any dizziness. When he had syncope, there was sweating. Denies any headache, no dizziness, no blurred vision, no earache, no runny nose, no sore throat. Has dry cough for last 2 weeks. Denies any loss of sense of smell or taste. No fever, no chills, no shortness of breath, no nausea, no abdominal pain. His stools are always black because of the medications. No blood in the stools. He makes urine and denies any burning micturitions. No rash. Ambulates without any support. Appetite is okay. Principal Diagnosis syncope chest pain- acute LA ruled out Discharge Data Allergies Allergy/AdvReac Type Severity Reaction Status Date / Time hydralazine Allergy Intermediate STIFF Verified 06/18/20 19:19 JOINTS Consultations 06/18/20 19:49 ED Decision to Admit Stat 06/18/20 21:49 Consult Case Management - Discharge Planning Routine 06/19/20 08:00 Consult Cardiology Routine 06/19/20 23:27 Consult Nephrology Routine Hospital Course (1) Syncope: Episode of syncope at end of hemodialysis treatment day of admission. Seen in consultation by Cardiology. Syncope probably secondary to combination of cardiovascular meds + volume changes from hemodialysis. Cardiovascular meds adjusted: clonidine stopped amlodipine 5 mg daily started carvedilol 50 mg BID continued No arrhythmias noted on telemetry. (2) Exertional chest pain: Known CAD. Cardiology consulted. Acute LA ruled out. Dobutamine stress echo negative for stress-induced ischemia. (3) CAD (coronary artery disease): CAD, s/p LA, s/p CABG. Acute LA ruled out. Dobutamine stress echo negative for stress-induced ischemia. Continue ASA, carvedilol, statin. (4) Hypertension: Seen in consultation by Cardiology. [place] that clonidine could be contributing to syncope with hemodialysis. Clonidine discontinued. Started on amlodipine. Continue carvedilol. (5) CKD (chronic kidney disease) stage V requiring chronic dialysis: Management per Nephrology. Best to observe during inpatient hemodialysis before discharge given syncope and medication changes. (6) DVT prophylaxis: SCD's ordered. (7) Discharge planning issues: Discharged to home. Internal Medicine follow-up with Dr. Chaves. Nephrology follow-up with Dr. Diop. Total Time Total Time Spent Total Time Spent (In Minutes): 30 Discharge Plan Discharge Items Patient Disposition: Home - Self-Care Reason For Visit: loss of consciousness, chest pain Discharge Diagnosis: loss of consciousness, chest pain Activity: Resume your previous activity Non-emergency contact: Primary Care Provider, Hospitalist, Product Coordinator and Integrity Assessor Call non-emergency contact if: you have any medication questions and your symptoms worsen Follow-up/Referrals: Eric Diop DO [Physician] - Artie Chaves MD [Primary Care Provider] - Herminio Abraham [Physician Security System Sales Consultant] - (06/23/2020 11:00 AM Herminio Abraham PA-C Cardiology, [facility]) Diet: Dialysis Renal, Heart Healthy and Low Potassium (2gm) Addtl Attending Provider Instructions: MEDICATION CHANGES: Stop clonidine. Start amlodipine (Norvasc) 5 mg daily. SUMMARY OF TEST RESULTS: No sign of heart attack. No problems seen on dobutamine stress echo. OTHER INSTRUCTIONS: Be careful after dialysis. Get up slowly from dialysis chair. Sit down or lie down if you feel lightheaded or dizzy. Seek medical attention if you have: * temperature above 101 * chest pain or trouble breathing * abdominal pain, nausea, vomiting * diarrhea, dark stools or bloody stools * any unanswered questions or concerns Call 911 if symptoms are severe. Please take good care of yourself. Call if you have any questions or problems. You can reach a [facility] hospitalist on duty at [facility] 24 hours a day by calling [phone]. My cell # is [phone]. Pending Studies at Discharge: No Stand-Alone Forms: My [facility], Smoking Cessation Medications and DC Order Prescriptions: New amlodipine [Norvasc] 5 mg Tablet 5 mg PO QAM Qty: 30 RF: 5 Continued loratadine 10 mg Tablet 10 mg PO QAM PRN (Reason: Allergy Symptoms) RF: 0 omega 4-ioo-xca-fish oil [Fish Oil] 1,000 mg (120 mg-180 mg) Capsule 1 cap PO QAM RF: 0 carvedilol [Coreg] 25 mg Tablet 50 mg PO BID RF: 0 aspirin [Aspirin Low Dose] 81 mg Tablet,Delayed Release (Dr/Ec) 81 mg PO QAM RF: 0 nitroglycerin [Nitrostat] 0.4 mg Tablet, Sublingual 1 dose Sublingual DIRECTED PRN (Reason: Chest Pain) RF: 0 cholecalciferol (vitamin D3) [Vitamin D3] 1,000 unit Capsule 1,000 unit PO QAM RF: 0 rosuvastatin [Crestor] 10 mg Tablet 10 mg PO HS RF: 0 acetaminophen [Tylenol Extra Strength] 500 mg Tablet 1,000 mg PO Q8H PRN (Reason: Pain) RF: 0 Velphoro 500 mg tablet,chewable 1,000 mg PO TIDM RF: 0 Discontinued clonidine HCl 0.1 mg tablet 0.1 mg PO BID RF: 0 Discharge Orders: Discharge Order (Routine); Ordered 06/20/20 Ordered By: Bassem Lynn Admission Data Admit Date/Time: 06/18/20 20:36 Attending Provider: Bassem Lynn Admit Provider: Clayton Prince Primary Care Provider: Artie Chaves Other Providers: Clayton Prince ; Tommie Augustine Kevin C. Other Interventions: Discharge Summary Assessment (RN) Last Done: 06/20/20 15:54
== END 2020-06-20 17:41 | disposition home or self-care (01) ==
LOC: ED 17:40 → 2E 17:40

== ENCOUNTER 2021-06-15 10:03 | Inpatient (IN) ==
[2021-06-15] MEDS ORDERED: SODIUM CHLORIDE 0.9% 1000ML 1,000 ML IV STA (11:35)
[2021-06-15 12:02] LABS: Basophils # (auto) 0.04 K/uL (0-0.2); Basophils % (auto) 0.5 %; Eosinophils # (auto) 0.05 K/uL (0-0.5); Eosinophils % (auto) 0.6 %; Hematocrit (blood only) 25.3 % (42-52); Hemoglobin 8.3 g/dL (14.0-18.0); Immature Granulocytes # (auto) 0.02 K/uL (0.00-0.02); Immature Granulocytes % (auto) 0.2 %; Lymphocytes # (auto) 1.09 K/uL (1.2-3.4); Lymphocytes % (auto) 13.2 %; Mean Corpuscular Hemoglobin 32.5 pg (25-34); Mean Corpuscular Hgb Conc 32.8 g/dL (32-36); Mean Corpuscular Volume 99.2 fL (80-100); Mean Platelet Volume 9.8 fL (7.4-10.4); Monocytes # (auto) 0.94 K/uL (0.11-0.59); Monocytes % (auto) 11.4 %; Neutrophils % (auto) 74.1 %; Platelet Count 145 K/uL (130-400); RDW Coefficient of Variation 14.8 % (11.5-14.5); RDW Standard Deviation 52.7 fL (36.4-46.3); Red Blood Count 2.55 M/uL (4.7-6.1); White Blood Count 8.24 K/uL (4.8-10.8)
[2021-06-15 12:15] LABS: Prothrombin Time 10.4 Seconds (9.0-12.0)
--- NOTE | 2021-06-15 12:28 | CT Scan Report ---
CT abd pelvis wo con CLINICAL INDICATION: MN ^CTR RM C11 ^Scrotal swelling, L flank pain, CKD stage V. TECHNIQUE: Helical axial images of the abdomen and pelvis were obtained and displayed at 5 and 1 mm i ntervals. Automated dose lowering techniques and/or adjustment according to patient size were utilize d for this exam. This exam was performed with intravenous contrast. COMPARISON: None available at the time of this dictation. FINDINGS: Lower chest: There is suggestion of cardiomegaly in this patient with median sternotomy wires noted. Liver: Unremarkable. No focal lesions are seen. Gallbladder and biliary tree: No calcified gallstones. Normal caliber wall. No intra- or extrahepatic biliary ductal dilation. Pancreas: Unremarkable, no focal lesions. Spleen: Unremarkable. Adrenals: Unremarkable. Kidneys and ureters: Innumerable large renal cysts are seen bilaterally, with differing attenuation l ikely secondary to proteinaceous or hemorrhagic component. There is calcification of some of these cy sts. There is hyperdense stranding about the left greater than right kidney, tracking down to the ing uinal canals. Bowel: Unremarkable. Lymph nodes Retroperitoneal: Unremarkable. Mesenteric: Unremarkable. Pelvic: Unremarkable. Bladder: Unremarkable. Reproductive organs: Fluid is seen within the scrotum. Peritoneum: Normal Vessels: Atherosclerotic calcifications are seen. Abdominal wall: Unremarkable. Bones: Degenerative changes in the visualized spine. IMPRESSION: Innumerable renal cysts bilaterally in this patient with end-stage renal disease. Some of the cysts a re hemorrhagic. Diffuse left greater than right hyperdense perinephric stranding, tracking into the s crotum, likely represents a ruptured left hemorrhagic cyst. ACT 112: Negative or not required by law. Electronically signed by: Marlon Gregory M.D. 06/15/2021 12:26 PM
[2021-06-15 12:39] LABS: Albumin Globulin Ratio 1.1 (0.9-2); Albumin Level 3.7 gm/dl (3.4-5.0); BUN Creatinine Ratio 5.1 (10-20); Bilirubin,Total 0.4 mg/dl (0.2-1); Calcium 9.6 mg/dl (8.5-10.1); Creatinine Clr Calc Pharmacy 8.8 ml/min; Est GFR (African American) 4.9 ml/min; Est GFR (Non-African American) 4.3 ml/min; Globulin 3.5 gm/dl (2.5-4.0); Potassium 4.7 mmol/L (3.5-5.1); Total Protein 7.2 gm/dl (6.4-8.2)
--- NOTE | 2021-06-15 13:57 | Emergency Department Note ---
History of Present Illness General Chief complaint: Testicular Pain Stated complaint: SWOLLEN TESTES, BACK PAIN, SWEATS Time Seen by Provider: 06/15/21 11:04 History of Present Illness Maximum Pain Intensity: 10 55-year-old male who presents to the emergency department for evaluation of left flank/back pain and scrotal swelling. The patient reports that he was picking apples yesterday afternoon, and experienced left side pain. He then went home and laid on his back without any relief of the pain. When he woke up this morning, he noticed swelling of the scrotum. Patient has a history of polycystic kidney disease, and has stage V chronic kidney disease. The patient undergoes hemodialysis on Tuesday, and Tuesday. The patient denies any recent trauma to the side, back or scrotum. The patient has not had any nausea, fever or chills. The patient is followed by his multiple spindle screw machine operator, Dr. Cohen. He has also been evaluated at [facility] for possible kidney transplant. The patient rates his discomfort a 10 out of 10. Home Medications Medication Instructions Recorded Confirmed Type carvedilol 25 mg tablet (Coreg) 50 mg PO BID 07/10/18 06/15/21 History cholecalciferol (vitamin D3) 25 1,000 unit PO QAM 07/10/18 06/15/21 History mcg (1,000 unit) capsule (Vitamin D3) nitroglycerin 0.4 mg sublingual 1 dose SUBLINGUAL DIRECTED PRN 07/10/18 06/15/21 History tablet (Nitrostat) rosuvastatin 10 mg tablet (Crestor) 10 mg PO HS 07/10/18 06/15/21 History loratadine 10 mg tablet 10 mg PO QAM PRN 01/02/19 06/15/21 History omega 4-eay-lst-fish oil 1,000 mg 1 cap PO QAM 01/02/19 06/15/21 History (120 mg-180 mg) capsule (Fish Oil) acetaminophen 500 mg tablet 1,000 mg PO Q8H PRN 01/18/19 06/15/21 History (Tylenol Extra Strength) sucroferric oxyhydroxide 500 mg 1,000 mg PO TIDM 06/18/20 06/15/21 History chewable tablet (Velphoro) amlodipine 5 mg tablet (Norvasc) 5 mg PO QAM #30 tab 06/20/20 06/15/21 Rx aspirin 81 mg tablet,delayed 81 mg PO DAILY 06/15/21 06/15/21 History release calcitriol 0.25 mcg capsule 0.25 mcg PO UD 06/15/21 06/15/21 History Allergies Allergy/AdvReac Type Severity Reaction Status Date / Time hydralazine Allergy Intermediate STIFF Verified 06/15/21 11:14 JOINTS Past Med/Surg History Medical History Anemia CHRONIC; BASELINE HGB 10'S PER CHART REVIEW Anemia of chronic disease CAD (coronary artery disease) S/P CABG X 3 (2008) S/P OR CKD (chronic kidney disease) stage V requiring chronic dialysis Deep vein thrombosis LLE DVT 2016; NO ISSUES SINCE History of gastric ulcer PER RECORDS Hyperlipidemia Hypertension Inflammatory arthritis Obesity Secondary hyperparathyroidism of renal origin Surgical History H/O eye surgery AN FOR STRABISMUS History of cardiac cath S/P CABG X 3 (2008)= CASAREZ-LAD, SVG-OM2, SVG-OM3 2017= PATENT BYPASS GRAFTS History of carpal tunnel release LEFT History of colonoscopy History of coronary artery bypass graft S/P CABG X 3 (2008): CASAREZ-LAD, SVG-OM2, SVG-OM3 History of esophagogastroduodenoscopy (EGD) History of herniorrhaphy INGUINAL HERNIA REPAIR History of tonsillectomy Family History Father Family history of diabetes mellitus Social History Smoking Status: Never smoker Second Hand Exposure: No; Hx Alcohol Use: No Hx Substance Use: No Preferred Language: Japanese Communication Ability: Effective Visual Impairment: No Limitations 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 Beliefs That Will Affect Care: None marital status: Single Current Living Situation: Family Feels Safe at Home: Yes Assistive Devices: None Review of Systems 10 system review was performed and was negative except for pertinent positives and negatives as indicated in history of present illness Physical Exam Vital Signs Vital Signs - 24 hr 06/15/21 10:05 06/15/21 11:35 06/15/21 13:00 Temperature 36.6 C 36.8 C Temperature Source Temporal Artery Scan Oral Pulse Rate 79 Pulse Rate [Left] 78 79 Pulse Rhythm Regular Pulse Rhythm [Left] Regular Regular Pulse Strength Normal Pulse Strength [Left] Normal Normal Respiratory Rate 20 17 19 Respiratory Effort / Characteristics Non-Labored Spontaneous Non-Labored Non-Labored Respiratory Depth Normal Normal Normal Respiratory Pattern Regular Regular Regular Blood Pressure 137/79 Blood Pressure [Right Arm] 174/96 H 179/81 H Blood Pressure Mean 98 Blood Pressure Mean [Right Arm] 122 113 Blood Pressure Position Sitting Blood Pressure Position [Right Arm] Lying Pulse Oximetry 96 99 100 Oxygen Delivery Method Room Air Room Air Room Air Sepsis Recent Fever Within 48 Hours No Sepsis New/Unexplained Change in Mental Status N/A Sepsis Action Taken by Nursing No Action Required 06/15/21 14:09 Temperature Temperature Source Pulse Rate Pulse Rate [Left] 84 Pulse Rhythm Pulse Rhythm [Left] Regular Pulse Strength Pulse Strength [Left] Respiratory Rate 17 Respiratory Effort / Characteristics Non-Labored Respiratory Depth Normal Respiratory Pattern Regular Blood Pressure Blood Pressure [Right Arm] 164/61 H Blood Pressure Mean Blood Pressure Mean [Right Arm] 95 Blood Pressure Position Blood Pressure Position [Right Arm] Lying Pulse Oximetry 100 Oxygen Delivery Method Room Air Sepsis Recent Fever Within 48 Hours Sepsis New/Unexplained Change in Mental Status Sepsis Action Taken by Nursing CONSTITUTIONAL: Healthy and well nourished. Alert and oriented X 3. Patient does not appear in any acute distress on my exam. HEENT: Normocephalic, atraumatic. No scleral icterus or conjunctival injection/pallor. NECK: Full active range of motion without discomfort. LYMPHATICS: No cervical chain adenopathy. RESPIRATORY: Clear to auscultation bilaterally with no wheezing, crackles, rhonchi or stridor. CARDIOVASCULAR: Regular rate and rhythm with no murmurs, rubs or gallops. GASTROINTESTINAL: Bowel sounds present in all quadrants. Abdomen is soft and nontender to palpation. Patient has no ecchymosis of the left flank region. GENITOURINARY: The patient has moderate scrotal edema without any focal te nderness to palpation through the testicles. No palpable intrascrotal masses or bag of worms. MUSCULOSKELETAL: Full range of motion of all joints without discomfort. No tenderness to palpation through the central thoracolumbar spine or paraspinous muscles. INTEGUMENTARY: No rash or other significant dermatologic conditions noted. HEMATOLOGIC: No ecchymosis or petechiae. PSYCHIATRIC: Positive affect. NEUROLOGIC: No focal neurologic deficits noted. Course Course Patient history and physical exam were performed. Nurses notes were reviewed. Vital signs were reviewed, showing an initial blood pressure 137/79. The patient is also afebrile. IV access was established, and labs were drawn. The patient reports that he is on fluid restrictions, therefore IV fluids were not ordered. Review of labs shows a hemoglobin of 8.3; review of prior hemoglobin levels shows a baseline of the mid tens to low 11's. The patient has no elevated white count, left shift or bandemia. Coagulation studies are normal. Review of CMP shows a mild hyponatremia. Creatinine is 11.7, consistent with patient's history of chronic kidney disease. Glucose is 103. Noncontrast CT of the abdomen and pelvis is consistent with a hemorrhagic left renal cyst, traveling through the retroperitoneal space into the scrotum. Findings were discussed with the patient, as well as Dr. Mcguire, ED attending physician, who recommended discussing the case with our urologist. I then discussed the case with Dr. Baez, [facility] (who indicated that these bleeds usually resolve on their own. Sometimes, however, he reports that an embolization procedure may be necessary, and given the patient's current hemoglobin level, has recommended that we do a type and cross for 2 units of blood. He also recommended discussing the case with our hospitalist service to see if they feel comfortable managing the patient. At this point, the case was then discussed with the [facility] Hospitalist service (Dr. Griffith), who recommended that we discussed the case further with the [facility] multiple spindle screw machine operator attending, especially since the patient is currently on the kidney transplant list. At this point, I was able to get a hold of and spoke with Dr. Muro, multiple spindle screw machine operator attending, who indicated that they would essentially watch serial hemoglobin levels, and if they continue to drop, may require either blood transfusions or embolization procedure. At this point, he does not feel that emergent transfer is needed. I then discussed the case further with the [facility], who has agreed to admit the patient to our facility. COVID-19 PCR test was negative. The patient had no further questions regarding his current condition, and has agreed to admission. The patient refused any analgesics prior to transfer of care to the hospitalist service. Administered Medications Discontinued Medications Acetaminophen (Acetaminophen 500 Mg Tab) 1,000 mg PO NOW STA Stop: 06/15/21 16:16 Last Admin: 06/15/21 17:07 Dose: 1,000 mg Documented by: [id number] Sodium Chloride (Nss 1000ml) 1,000 mls @ 999 mls/hr IV .Q1H1M STA Stop: 06/15/21 12:35 Last Admin: 06/15/21 11:57 Dose: Not Given Documented by: [id number] Medical Decision Making Medical Records Attestation: I reviewed the patient's medical records. Home Medications Current Medication List: was personally reviewed by me Laboratory Data Attestation: I reviewed the patient's lab results. Result diagrams: 06/15/21 15:17 06/15/21 11:45 Lab Results 06/15/21 06/15/21 06/15/21 Range/Units 11:45 11:45 11:45 WBC 8.24 (4.8-10.8) K/uL RBC 2.55 L (4.7-6.1) M/uL Hgb 8.3 L (14.0-18.0) g/dL Hct 25.3 L (42-52) % MCV 99.2 (80-100) fL MCH 32.5 (25-34) pg MCHC 32.8 (32-36) g/dL RDW Std Deviation 52.7 H (36.4-46.3) fL RDW Coeff of Adam 14.8 H (11.5-14.5) % Plt Count 145 (130-400) K/uL MPV 9.8 (7.4-10.4) fL Immature Gran % (Auto) 0.2 % Neut % (Auto) 74.1 % Lymph % (Auto) 13.2 % Morrow % (Auto) 11.4 % Eos % (Auto) 0.6 % Baso % (Auto) 0.5 % Neut # (Auto) 6.10 (1.4-6.5) K/uL Lymph # (Auto) 1.09 L (1.2-3.4) K/uL Morrow # (Auto) 0.94 H (0.11-0.59) K/uL Eos # (Auto) 0.05 (0-0.5) K/uL Baso # (Auto) 0.04 (0-0.2) K/uL Immature Gran # (Auto) 0.02 (0.00-0.02) K/uL PT 10.4 (9.0-12.0) Seconds INR 1.0 (0.9-1.1) Sodium 133 L (136-145) mmol/L Potassium 4.7 (3.5-5.1) mmol/L Chloride 95 L (98-107) mmol/L Carbon Dioxide 29 (21-32) mmol/L Anion Gap 9.0 (3-11) BUN 60 H (7-18) mg/dl Creatinine 11.70 H* (0.6-1.4) mg/dl Est Cr Clr Drug Dosing 8.8 ml/min Est GFR ( Amer) 4.9 ml/min Est GFR (Non-Af Amer) 4.3 ml/min BUN/Creatinine Ratio 5.1 L (10-20) Glucose 103 H (70-99) mg/dl Calcium 9.6 (8.5-10.1) mg/dl Total Bilirubin 0.4 (0.2-1) mg/dl AST 5 L (15-37) U/L ALT 13 (12-78) U/L Alkaline Phosphatase 113 (45-117) U/L Total Protein 7.2 (6.4-8.2) gm/dl Albumin 3.7 (3.4-5.0) gm/dl Globulin 3.5 (2.5-4.0) gm/dl Albumin/Globulin Ratio 1.1 (0.9-2) Lipase 101 (73-393) U/L COVID-19 Eval Order SARS-CoV-2 (PCR) (Negative) 06/15/21 06/15/21 06/15/21 Range/Units 13:15 13:15 15:17 WBC 8.02 (4.8-10.8) K/uL RBC 2.56 L (4.7-6.1) M/uL Hgb 8.4 L (14.0-18.0) g/dL Hct 25.8 L (42-52) % MCV 100.8 H (80-100) fL MCH 32.8 (25-34) pg MCHC 32.6 (32-36) g/dL RDW Std Deviation 54.0 H (36.4-46.3) fL RDW Coeff of Adam 14.7 H (11.5-14.5) % Plt Count 153 (130-400) K/uL MPV 9.9 (7.4-10.4) fL Immature Gran % (Auto) % Neut % (Auto) % Lymph % (Auto) % Morrow % (Auto) % Eos % (Auto) % Baso % (Auto) % Neut # (Auto) (1.4-6.5) K/uL Lymph # (Auto) (1.2-3.4) K/uL Morrow # (Auto) (0.11-0.59) K/uL Eos # (Auto) (0-0.5) K/uL Baso # (Auto) (0-0.2) K/uL Immature Gran # (Auto) (0.00-0.02) K/uL PT (9.0-12.0) Seconds INR (0.9-1.1) Sodium (136-145) mmol/L Potassium (3.5-5.1) mmol/L Chloride (98-107) mmol/L Carbon Dioxide (21-32) mmol/L Anion Gap (3-11) BUN (7-18) mg/dl Creatinine (0.6-1.4) mg/dl Est Cr Clr Drug Dosing ml/min Est GFR ( Amer) ml/min Est GFR (Non-Af Amer) ml/min BUN/Creatinine Ratio (10-20) Glucose (70-99) mg/dl Calcium (8.5-10.1) mg/dl Total Bilirubin (0.2-1) mg/dl AST (15-37) U/L ALT (12-78) U/L Alkaline Phosphatase (45-117) U/L Total Protein (6.4-8.2) gm/dl Albumin (3.4-5.0) gm/dl Globulin (2.5-4.0) gm/dl Albumin/Globulin Ratio (0.9-2) Lipase (73-393) U/L COVID-19 Eval Order Covid19 at [facility] SARS-CoV-2 (PCR) NEGATIVE (Negative) Imaging Data Attestation: I personally reviewed and interpreted this imaging study as follows: My Impression: My interpretation of a noncontrast CT of the nose shows a probable hemorrhagic left renal cyst with perinephritic stranding tracking into the scrotum. No evidence for obstructive uropathy, nephrolithiasis, ureteral calculi, bowel obstruction or abdominal free air. Radiologist report was also reviewed. Radiologist's Impression: Abdomen/Pelvis CT 06/15/21 11:35 CT abd pelvis wo con CLINICAL INDICATION: MN ^CTR RM C11 ^Scrotal swelling, L flank pain, CKD stage V. TECHNIQUE: Helical axial images of the abdomen and pelvis were obtained and displayed at 5 and 1 mm intervals. Automated dose lowering techniques and/or adjustment according to patient size were utilized for this exam. This exam was performed with intravenous contrast. COMPARISON: None available at the time of this dictation. FINDINGS: Lower chest: There is suggestion of cardiomegaly in this patient with median sternotomy wires noted. Liver: Unremarkable. No focal lesions are seen. Gallbladder and biliary tree: No calcified gallstones. Normal caliber wall. No intra- or extrahepatic biliary ductal dilation. Pancreas: Unremarkable, no focal lesions. Spleen: Unremarkable. Adrenals: Unremarkable. Kidneys and ureters: Innumerable large renal cysts are seen bilaterally, with differing attenuation likely secondary to proteinaceous or hemorrhagic component. There is calcification of some of these cysts. There is hyperdense stranding about the left greater than right kidney, tracking down to the in guinal canals. Bowel: Unremarkable. Lymph nodes Retroperitoneal: Unremarkable. Mesenteric: Unremarkable. Pelvic: Unremarkable. Bladder: Unremarkable. Reproductive organs: Fluid is seen within the scrotum. Peritoneum: Normal Vessels: Atherosclerotic calcifications are seen. Abdominal wall: Unremarkable. Bones: Degenerative changes in the visualized spine. IMPRESSION: Innumerable renal cysts bilaterally in this patient with end-stage renal disease. Some of the cysts are hemorrhagic. Diffuse left greater than right hyperdense perinephric stranding, tracking into the scrotum, likely represents a ruptured left hemorrhagic cyst. ACT 112: Negative or not required by law. Electronically signed by: Marlon Gregory M.D. 06/15/2021 12:26 PM Prescription Drug Monitoring [place] Drug Monitoring Program reviewed and no issues identified Blood Pressure Blood Pressure Findings: Elevated blood pressure MDM Narrative Patient presents to the emergency department with complaint of less than 24 hours of left flank pain, awakening this morning with scrotal edema as well. The patient does have a history of stage V chronic kidney disease secondary to polycystic renal disease. Patient is due for hemodialysis tomorrow. Patient denies any trauma to the flank or scrotum, therefore fluid collection in the scrotum was concerning for other possible etiologies such as hemorrhage, hernia or infection. CT imaging is highly suggestive of a hemorrhagic left renal cyst. Patient does have a decreased hemoglobin of 8.3, approximately two-point change from his usual hemoglobin level per our labs. I did not review and compare labs through the [facility] electronic medical records. The case was discussed with Dr. Baez, our local radiologist, as well as Dr. Muro, [facility] multiple spindle screw machine operator, who feels that the patient is stable for observation in our facility. If the patient's serial hemoglobin levels continue to decline, he may warrant blood transfusions or embolization procedure. With a history that the patient is currently awaiting kidney transplant, Dr. Muro feels that the patient is certainly eligible for a blood transfusion should his hemoglobin levels drop suddenly, with transfer to their facility for embolization procedure. He does not feel that emergent transfer is needed at this time. Further laboratory and imaging studies today are not suggestive of other etiologies such as diverticulitis, bowel obstruction, perforation, ureteral calculus, obstructive uropathy, pancreatitis, cholecystitis or hepatitis. Impression & Plan Hemorrhage of cyst of [place] kidney, Edema of scrotum, History of polycystic kidney disease, Chronic kidney disease, stage V, Hemodialysis patient Discharge Plan Visit Data Chief Complaint: Testicular Pain Stated Complaint: SWOLLEN TESTES, BACK PAIN, SWEATS ED Provider: Bienvenido Mcguire ED Midlevel Provider: Geoffrey Schreiber Discharge Problem: Hemorrhage of cyst of [place] kidney, Edema of scrotum, History of polycystic kidney disease, Chronic kidney disease, stage V, Hemodialysis patient
--- NOTE | 2021-06-15 15:01 | History & Physical Report ---
Date of Service June 15, 2021 Assessment & Plan (1) Right flank pain: (2) Anemia: (3) Hemorrhage of cyst of [place]: Plan: This is a 55yo M with a PMH of CAD s/p CABG x 3 in 2008, ESRD on hemodialysis, renal transplant candidate, hypertension, anemia of chronic kidney disease, history of lupus, history of gastric ulcer hyperparathyroidism, DLD and other medical problems listed below who presents with R flank pain since yesterday. Hemodynamically stable CT abd/pelvis wo con showing * innumerable renal cysts bilaterally in this patient with end-stage renal disease. Some of the cysts are hemorrhagic * Diffuse left greater than right hyperdense perinephric stranding, tracking into the scrotum, likely represents a ruptured left hemorrhagic cyst Initial hgb 8.3 (baseline ~ 10). Repeat hgb 4 hours later shows stable hgb at 8.4 Trend H&H, consented for blood, type and cross, hold 2u PRBCs - transfuse if patient becomes hemodynamically unstable Higher threshold for blood transfusion due to patient being a renal transplant candidate If bleeding is prolonged and severe, may require percutaneous transarterial embolization by IR in [place] Case discussed with urology and nephrology services Pain control - patient wants to start with tylenol, discussed narcotics may play a helpful role in control (4) CKD (chronic kidney disease) stage V requiring chronic dialysis: Plan: Follows with Dr. Diop, [facility] Renal diet, nephrology consulted (5) Hypertension: Plan: Optimize pain control Continue amlodipine, Coreg (6) CAD (coronary artery disease): Plan: H/o CABG in 2008, denies intervention since then Holding aspirin in setting of bleeding renal cyst Continue statin, beta chet (7) Secondary hyperparathyroidism of renal origin: Plan: Receives Calcitriol 3x/week with HD DVT Ppx: SCDs Code status: FULL PCP: Andie Dispo: Admitted to PCU Patient seen in collaboration with Dr. Griffith. Please see addendum. History of Present Illness Chief Complaint: flank pain Primary Care Provider: Artie Chaves MD This is a 55yo M with a PMH of CAD s/p CABG x 3 in 2008, ESRD on hemodialysis [facility], renal transplant candidate, hypertension, anemia of chronic kidney disease, history of lupus, history of gastric ulcer hyperparathyroidism, DLD and other medical problems listed below who presents with R flank pain since yesterday. Developed left lower back pain yesterday around noon that migrated to lower left abdomen and scrotum. Noticed scrotal swelling today and came to ED for further evaluation. Describes pain as constant and sharp, 6/10 and worse with movement. Associated with intermittent nausea. No fever, chills, lightheadedness, headache, chest pain, SOB, vomiting, diarrhea or constipation. Does not make much urine. Case discussed with [facility] urology, nephro and [place] [facility] due to patient's pre-transplant status. Agreed that imaging consistent with hemorrhagic left renal cyst. Conservative management for now but if bleeding is prolonged and severe bleeding may require percutaneous transarterial embolization by IR in [place]. PRBCs prn if hgb dropping or patient becomes hemodynamically unstable. Allergies Allergy/AdvReac Type Severity Reaction Status Date / Time hydralazine Allergy Intermediate STIFF Verified 06/15/21 11:14 JOINTS Home Medications Medication Instructions Recorded Confirmed Type carvedilol 25 mg tablet (Coreg) 50 mg PO BID 07/10/18 06/15/21 History cholecalciferol (vitamin D3) 25 1,000 unit PO QAM 07/10/18 06/15/21 History mcg (1,000 unit) capsule (Vitamin D3) nitroglycerin 0.4 mg sublingual 1 dose SUBLINGUAL DIRECTED PRN 07/10/18 06/15/21 History tablet (Nitrostat) rosuvastatin 10 mg tablet (Crestor) 10 mg PO HS 07/10/18 06/15/21 History loratadine 10 mg tablet 10 mg PO QAM PRN 01/02/19 06/15/21 History omega 5-gjs-pyd-fish oil 1,000 mg 1 cap PO QAM 01/02/19 06/15/21 History (120 mg-180 mg) capsule (Fish Oil) acetaminophen 500 mg tablet 1,000 mg PO Q8H PRN 01/18/19 06/15/21 History (Tylenol Extra Strength) sucroferric oxyhydroxide 500 mg 1,000 mg PO TIDM 06/18/20 06/15/21 History chewable tablet (Velphoro) amlodipine 5 mg tablet (Norvasc) 5 mg PO QAM #30 tab 06/20/20 06/15/21 Rx calcitriol 0.25 mcg capsule 0.25 mcg PO UD 06/15/21 06/15/21 History Past Med/Surg History Medical History Anemia CHRONIC; BASELINE HGB 10'S PER CHART REVIEW Anemia of chronic disease CAD (coronary artery disease) S/P CABG X 3 (2008) S/P [place] CKD (chronic kidney disease) stage V requiring chronic dialysis Deep vein thrombosis LLE DVT 2016; NO ISSUES SINCE History of gastric ulcer PER RECORDS Hyperlipidemia Hypertension Inflammatory arthritis Obesity Secondary hyperparathyroidism of renal origin Surgical History H/O eye surgery AN FOR STRABISMUS History of cardiac cath S/P CABG X 3 (2008)= CASAREZ-LAD, SVG-OM2, SVG-OM3 2017= PATENT BYPASS GRAFTS History of carpal tunnel release LEFT History of colonoscopy History of coronary artery bypass graft S/P CABG X 3 (2008): CASAREZ-LAD, SVG-OM2, SVG-OM3 History of esophagogastroduodenoscopy (EGD) History of herniorrhaphy INGUINAL HERNIA REPAIR History of tonsillectomy Family History Father Family history of diabetes mellitus Social History Smoking Status: Never smoker Second Hand Exposure: No; Hx Alcohol Use: No Hx Substance Use: No Preferred Language: O[place]i Communication Ability: Effective Visual Impairment: No Limitations Cotton Expert Required: No Beliefs That Will Affect Care: None marital status: Single Current Living Situation: Parent and Other Current Living Situation Comment: lives with girlfriend and lives at parents sometimes Feels Safe at Home: Yes Assistive Devices: None Review of Systems Review of Systems: At least ten systems reviewed and negative except as noted in the HPI. Physical Exam Physical Exam: General Appearance: WD/WN, vitals as above, NAD, sitting up in bed, pleasant, conversing easily Head: normocephalic, atraumatic Eyes: normal inspection, PERRL, conjunctivae normal, anicteric sclerae ENT: external ear and nose normal, oropharynx normal Neck: normal visual inspection, trachea midline, no thyromegaly Respiratory: normal respiratory effort, lungs clear to auscultation, no wheeze, rales, rhonchi. No accessory muscle use Cardiovascular: regular rate, rhythm, systolic murmur, normal peripheral pulses, no BLE edema. Vessels: no JVD Chest: normal inspection of chest Abdomen/GI: normal bowel sounds, soft, nontender, no hepatosplenomegaly : + scrotal edema Extremities/Musculoskeletal: LUE AV fistula, no cyanosis or clubbing, extremities motor strength 5/5 Neurologic: PERRL, EOMI, accommodation nl, no face palsy, no dysarthria, CN's II-XI intact bilaterally and moves all extremities Psychiatric: A+Ox3, euthymic affect Skin: no rashes, normal color, warm/dry Results & Data Results & Data ([facility]) Vital Signs (Past 12 Hours) Vital Signs Temp Pulse Pulse Resp BP BP Pulse Ox 06/15/21 14:09 84 17 164/61 H 100 06/15/21 13:00 36.8 C 79 19 179/81 H 100 06/15/21 11:35 78 17 174/96 H 99 06/15/21 10:05 36.6 C 79 20 137/79 96 Laboratory Results Short CBC 06/15/21 Range/Units 11:45 WBC 8.24 (4.8-10.8) K/uL Hgb 8.3 L (14.0-18.0) g/dL Hct 25.3 L (42-52) % Plt Count 145 (130-400) K/uL BMP 06/15/21 11:45 Sodium 133 L Potassium 4.7 Chloride 95 L Carbon Dioxide 29 BUN 60 H Creatinine 11.70 H* Glucose 103 H Calcium 9.6 Liver Function 06/15/21 Range/Units 11:45 Total Bilirubin 0.4 (0.2-1) mg/dl AST 5 L (15-37) U/L ALT 13 (12-78) U/L Alkaline Phosphatase 113 (45-117) U/L Albumin 3.7 (3.4-5.0) gm/dl Diagnostic Findings Abdomen/Pelvis CT 06/15/21 11:35 CT abd pelvis wo con CLINICAL INDICATION: MN ^CTR RM C11 ^Scrotal swelling, L flank pain, CKD stage V. TECHNIQUE: Helical axial images of the abdomen and pelvis were obtained and displayed at 5 and 1 mm intervals. Automated dose lowering techniques and/or adjustment according to patient size were utilized for this exam. This exam was performed with intravenous contrast. COMPARISON: None available at the time of this dictation. FINDINGS: Lower chest: There is suggestion of cardiomegaly in this patient with median sternotomy wires noted. Liver: Unremarkable. No focal lesions are seen. Gallbladder and biliary tree: No calcified gallstones. Normal caliber wall. No intra- or extrahepatic biliary ductal dilation. Pancreas: Unremarkable, no focal lesions. Spleen: Unremarkable. Adrenals: Unremarkable. Kidneys and ureters: Innumerable large renal cysts are seen bilaterally, with differing attenuation likely secondary to proteinaceous or hemorrhagic component. There is calcification of some of these cysts. There is hyperdense stranding about the left greater than right kidney, tracking down to the inguinal canals. Bowel: Unremarkable. Lymph nodes Retroperitoneal: Unremarkable. Mesenteric: Unremarkable. Pelvic: Unremarkable. Bladder: Unremarkable. Reproductive organs: Fluid is seen within the scrotum. Peritoneum: Normal Vessels: Atherosclerotic calcifications are seen. Abdominal wall: Unremarkable. Bones: Degenerative changes in the visualized spine. IMPRESSION: Innumerable renal cysts bilaterally in this patient with end-stage renal disease. Some of the cysts are hemorrhagic. Diffuse left greater than right hyperdense perinephric stranding, tracking into the scrotum, likely represents a ruptured left hemorrhagic cyst. ACT 112: Negative or not required by law. Electronically signed by: Marlon Gregory M.D. 06/15/2021 12:26 PM Supervising Physician Co-Signing Physician Notes Pt was seen and examined. Agreed with Sarah ALMONTE exam, assessment and plan. 55yo M with a PMH of CAD s/p CABG x 3 in 2008, ESRD on hemodialysis [facility], renal transplant candidate, hypertension, anemia of chronic kidney disease, history of lupus, history of gastric ulcer hyperparathyroidism, DLD presents with R flank pain since yesterday. Pt said that he started to have left lower back pain yesterday around noon that migrated to lower left abdomen and scrotum. He said that he noticed scrotal swelling, constant sharp pain, grade 6/10 worsening with movement. Denies any fever, chills, lightheadedness, headache, chest pain, SOB, vomiting, diarrhea or constipation. Case discussed with [facility] urology, nephro and [place] [facility] due to patient's pre-transplant status. Agreed that imaging consistent with hemorrhagic left renal cyst. Conservative management for now but if bleeding is prolonged and severe bleeding may require percutaneous transa rterial embolization by IR in [place]. Urology on board recommended to monitor H/H and if drops to transfuse PRBCs. Will keep NPO after midnight in case pt will need any procedure. Continue monitor closely. MD Nacho
[2021-06-15 15:23] LABS: Hematocrit (blood only) 25.8 % (42-52); Hemoglobin 8.4 g/dL (14.0-18.0); Mean Corpuscular Hemoglobin 32.8 pg (25-34); Mean Corpuscular Hgb Conc 32.6 g/dL (32-36); Mean Corpuscular Volume 100.8 fL (80-100); Mean Platelet Volume 9.9 fL (7.4-10.4); Platelet Count 153 K/uL (130-400); RDW Coefficient of Variation 14.7 % (11.5-14.5); Red Blood Count 2.56 M/uL (4.7-6.1); White Blood Count 8.02 K/uL (4.8-10.8)
[2021-06-15] MEDS ORDERED: ACETAMINOPHEN HOME PACK 500 MG TABLET PO PRN (15:50)
--- NOTE | 2021-06-15 15:56 | Electrocardiogram Report ---
Test Reason : Blood Pressure : / mmHG Vent. Rate : 077 BPM Atrial Rate : 077 BPM P-R Int : 164 ms QRS Dur : 120 ms QT Int : 388 ms P-R-T Axes : 048 005 081 degrees QTc Int : 439 ms Normal sinus rhythm Possible Left atrial enlargement RSR' or QR pattern in V1 suggests right ventricular conduction delay Nonspecific ST abnormality Abnormal ECG When compared with ECG of 13-OCT-2020 08:59, No significant change was found Confirmed by Stuart Garcia ([id number]) on 06/15/2021 3:55:38 PM Referred By: REFERRED SELF Confirmed By:Stuart Garcia
--- NOTE | 2021-06-15 16:10 | Urology Consultation ---
Date of Consultation June 15, 2021 Assessment & Plan (1) Hemorrhage of cyst of [place] kidney: 55-year-old male with polycystic kidneys with acute hemorrhage of the left renal cyst with retroperitoneal bleed tracking into the scrotum 1. Recommend n.p.o., bedrest and CBCs q6 hours for initial 24 hours. If patient remains stable, can likely progress to clear liquid diets and ambulation tomorrow. 2. Type and cross for 2 units 3. These types of bleeds tend to self resolve as they will eventually tamponade off in the retroperitoneal space. If becomes hemodynamically unstable or hemoglobins continued to downtrend, may require transfer to tertiary care center with interventional radiology for possible embolization. 4. Defer to primary team regarding dialysis management. 5. If any concern for infection of cyst in the future, recommend a lipophilic antibiotic such as Cipro or Bactrim for better cyst penetration. No current indication for antibiotics. 6. Recommend holding aspirin if say from cardiac standpoint in setting of bleed. 7. Recommend scrotal elevation for swelling. Will resolve with time as blood is resorbed. 8. Urology will continue to follow while patient in-house History of Present Illness Reason for Consultation: Rupture of left hemorrhagic renal cyst leading to retroperitoneal hematoma History of Present Illness 55-year-old male with a history of polycystic kidney disease leading to ESRD on hemodialysis who presents with left flank pain and left scrotal swelling. Patient reports that he developed pain in his flank and his scrotum yesterday. When he presented to the emergency department, he is hemodynamically stable and afebrile. Labs showed a hemoglobin of 8.4 with a baseline of around 10. Creatinine was noted to be above 11 as he is due for dialysis on Tuesday. CT scan was performed which showed multiple cysts of bilateral kidneys and a suspected rupture of a hemorrhagic cyst on the left side that tracked down the retroperitoneum into the scrotum. Urology was consulted for further evaluation. On evaluation, patient reports his pain is improved. His vitals are stable. Repeat hemoglobin was relatively stable. His nausea has resolved. Allergies Allergy/AdvReac Type Severity Reaction Status Date / Time hydralazine Allergy Intermediate STIFF Verified 06/15/21 11:14 JOINTS Home Medications Medication Instructions Recorded Confirmed Type carvedilol 25 mg tablet (Coreg) 50 mg PO BID 07/10/18 06/15/21 History cholecalciferol (vitamin D3) 25 1,000 unit PO QAM 07/10/18 06/15/21 History mcg (1,000 unit) capsule (Vitamin D3) nitroglycerin 0.4 mg sublingual 1 dose SUBLINGUAL DIRECTED PRN 07/10/18 06/15/21 History tablet (Nitrostat) rosuvastatin 10 mg tablet (Crestor) 10 mg PO HS 07/10/18 06/15/21 History loratadine 10 mg tablet 10 mg PO QAM PRN 01/02/19 06/15/21 History omega 7-bll-ujm-fish oil 1,000 mg 1 cap PO QAM 01/02/19 06/15/21 History (120 mg-180 mg) capsule (Fish Oil) acetaminophen 500 mg tablet 1,000 mg PO Q8H PRN 01/18/19 06/15/21 History (Tylenol Extra Strength) sucroferric oxyhydroxide 500 mg 1,000 mg PO TIDM 06/18/20 06/15/21 History chewable tablet (Velphoro) amlodipine 5 mg tablet (Norvasc) 5 mg PO QAM #30 tab 06/20/20 06/15/21 Rx aspirin 81 mg tablet,delayed 81 mg PO DAILY 06/15/21 06/15/21 History release calcitriol 0.25 mcg capsule 0.25 mcg PO UD 06/15/21 06/15/21 History Patient History Medical History Anemia CHRONIC; BASELINE HGB 10'S PER CHART REVIEW Anemia of chronic disease CAD (coronary artery disease) S/P CABG X 3 (2008) S/P [place] CKD (chronic kidney disease) stage V requiring chronic dialysis Deep vein thrombosis LLE DVT 2016; NO ISSUES SINCE History of gastric ulcer PER RECORDS Hyperlipidemia Hypertension Inflammatory arthritis Obesity Secondary hyperparathyroidism of renal origin Surgical History H/O eye surgery AN INFANT FOR STRABISMUS History of cardiac cath S/P CABG X 3 (2008)= CASAREZ-LAD, SVG-OM2, SVG-OM3 2017= PATENT BYPASS GRAFTS History of carpal tunnel release LEFT History of colonoscopy History of coronary artery bypass graft S/P CABG X 3 (2008): CASAREZ-LAD, SVG-OM2, SVG-OM3 History of esophagogastroduodenoscopy (EGD) History of herniorrhaphy INGUINAL HERNIA REPAIR History of tonsillectomy Family History Father Family history of diabetes mellitus Social History Smoking Status: Never smoker Second Hand Exposure: No; Hx Alcohol Use: No Hx Substance Use: No Preferred Language: [place] Communication Ability: Effective Visual Impairment: No Limitations Editor Newspaper Required: No Beliefs That Will Affect Care: None marital status: Single Current Living Situation: Family Feels Safe at Home: Yes Assistive Devices: None Review of Systems Review of Systems: 14 point review of systems negative outside of what is listed above in HPI Physical Exam Physical Exam: General: Alert and oriented, no acute distress HEENT: Normocephalic, mucous membranes moist Cardiovascular: Regular rate Pulmonary: Nonlabored respirations Abdomen: Nondistended Back: No CVA tenderness or ecchymosis : Circumcised phallus with orthotopic meatus. Testicles descended bilaterally. Right is easily palpable. Left hemiscrotum is edematous due to hematoma in the left testicle is not easily palpated. Mild tenderness to examination. No ecchymoses. No crepitus noted. Extremities: Moves all 4 spontaneously Neuro: No gross deficits Skin: Warm, dry, no rashes noted Results & Data ([facility]) Vital Signs (Past 12 Hours) Vital Signs Temp Pulse Pulse Resp BP BP Pulse Ox 06/15/21 16:00 36.8 C 74 19 169/90 H 100 06/15/21 14:09 84 17 164/61 H 100 06/15/21 13:00 36.8 C 79 19 179/81 H 100 06/15/21 11:35 78 17 174/96 H 99 06/15/21 10:05 36.6 C 79 20 137/79 96 PG Care Time/CCT Total # of Minutes Spent Total Time Spent with Patient: Total time spent is greater than 50% in coordination of care (as documented) at patient's floor/unit and/or counseling patient: [place] [address] Inpt Consult Level 5 Patient Type New History Comprehensive Exam Comprehensive Medical Decision Making High Complexity Diagnoses Hemorrhage of cyst of [place] kidney N28.89; N28.1
[2021-06-15] MEDS ORDERED: ACETAMINOPHEN 500 MG TAB PO STA (16:15)
[2021-06-15] MEDS ORDERED: ACETAMINOPHEN 500 MG TAB PO PRN (16:23)
--- NOTE | 2021-06-15 17:32 | Ultrasound Report ---
TESTICULAR ULTRASOUND HISTORY: scrotal swelling, eval for torsion, infection COMPARISON: None. FINDINGS: Right testis: Is measuring 4.2 x 2.3 x 2.5 cm. Normal blood flow is seen. No focal testicular lesions demonstrated. Mild hydrocele is visualized. P artially visualized right epididymis appear normal. Left testis: Is measured 4.4 x 1.5 x 3.4 cm. Shows normal blood flow and no evidence of focal testicular lesions. Minimal hydrocele is seen. Left epididymal head is slightly thickened. Diffuse scrotal edema is seen and appear to be more prominent on the left and associated with slight displacement of the right testicle according to clean room technician report. IMPRESSION: Normal appearance and blood flow of bilateral testes. Mild hydrocele is seen bilaterally. Diffuse scr otal edema. ACT 112: Negative or not required by law. The above report was generated using voice recognition software. It may contain grammatical, syntax o r spelling errors. Electronically signed by: Shaila Shelton DO 06/15/2021 5:31 PM
--- NOTE | 2021-06-15 18:49 | Nephrology Consultation ---
Date of Consultation June 15, 2021 Assessment & Plan (1) Chronic kidney disease, stage V: Maintained on HD TTS. BP and volume status acceptable. Electrolytes controlled. Plan for HD tomorrow per TTS scheduled. Outpatient Rx 4 hr 2/ 200 optiflux 500/800. EDW 112.5 kg. Ed has been leaving slightly below EDW. Medications appropriate for kidney function. (2) Hemorrhage of cyst of [place] kidney: Supportive care. Serial H/H. Urology consultation. (3) Anemia: Epogen and Venofer with HD tomorrow. Transfusion PRN, if Hgb drops or Ed develops symptoms. Avoid unless necessary in respect to transplant listing status. (4) Secondary hyperparathyroidism of renal origin: Velphoro QAC for hyperphosphatemia. Calcitriol as Rx. History of Present Illness Reason for Consultation: ESRD Requesting Physician: Hernando Griffith MD Attending Physician: Hernando Griffith MD History of Present Illness Mr. Cruz is a 55-year-old male with ESRD. He dialyzes TTS at [facility] under my care. Ed completed his last treatment on Tuesday without complications. 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 Ed is actively listed for transplant and C. Medical history also notable for cardiovascular disease and dyslipidemia. He is treated for secondary hyperparathyroidism and anemia of chronic disease. Hemoglobin was 9.9 at dialysis last week. Ed is maintained on Micera every other week. HD Rx TTS 4 hrs 200 optiflux, 500/800, 2K. EDW 112.5 kg. Ed left dialysis at 111.7 and 112 kg his last couple of treatments. He presented to the ER today with R flank pain. Symptoms started yesterday. Ed reports sudden onset of left lower back pain yesterday afternoon radiating into the lower left abdomen and scrotum. Scrotal swelling started today. CT and urology consultation were reviewed. CT scan was performed which showed multiple cysts of bilateral kidneys and a suspected rupture of a hemorrhagic cyst on the left side that tracked down the retroperitoneum into the scrotum. Hemodynamically stable since admission. I discussed the plan of care with the admitting hospitalist. Ed's transplant program has been contacted by the admitting provider. Allergies Allergy/AdvReac Type Severity Reaction Status Date / Time hydralazine Allergy Intermediate STIFF Verified 06/15/21 11:14 JOINTS Home Medications Medication Instructions Recorded Confirmed Type carvedilol 25 mg tablet (Coreg) 50 mg PO BID 07/10/18 06/15/21 History cholecalciferol (vitamin D3) 25 1,000 unit PO QAM 07/10/18 06/15/21 History mcg (1,000 unit) capsule (Vitamin D3) nitroglycerin 0.4 mg sublingual 1 dose SUBLINGUAL DIRECTED PRN 07/10/18 06/15/21 History tablet (Nitrostat) rosuvastatin 10 mg tablet (Crestor) 10 mg PO HS 07/10/18 06/15/21 History loratadine 10 mg tablet 10 mg PO QAM PRN 01/02/19 06/15/21 History omega 7-dep-pwe-fish oil 1,000 mg 1 cap PO QAM 01/02/19 06/15/21 History (120 mg-180 mg) capsule (Fish Oil) acetaminophen 500 mg tablet 1,000 mg PO Q8H PRN 01/18/19 06/15/21 History (Tylenol Extra Strength) sucroferric oxyhydroxide 500 mg 1,000 mg PO TIDM 06/18/20 06/15/21 History chewable tablet (Velphoro) amlodipine 5 mg tablet (Norvasc) 5 mg PO QAM #30 tab 06/20/20 06/15/21 Rx aspirin 81 mg tablet,delayed 81 mg PO DAILY 06/15/21 06/15/21 History release calcitriol 0.25 mcg capsule 0.25 mcg PO UD 06/15/21 06/15/21 History Patient History Medical History Anemia CHRONIC; BASELINE HGB 10'S PER CHART REVIEW Anemia of chronic disease CAD (coronary artery disease) S/P CABG X 3 (2008) S/P MA CKD (chronic kidney disease) stage V requiring chronic dialysis Deep vein thrombosis LLE DVT 2017; NO ISSUES SINCE History of gastric ulcer PER RECORDS Hyperlipidemia Hypertension Inflammatory arthritis Obesity Secondary hyperparathyroidism of renal origin Surgical History H/O eye surgery AN FOR STRABISMUS History of cardiac cath S/P CABG X 3 (2008)= CASAREZ-LAD, SVG-OM2, SVG-OM3 2017= PATENT BYPASS GRAFTS History of carpal tunnel release LEFT History of colonoscopy History of coronary artery bypass graft S/P CABG X 3 (2008): CASAREZ-LAD, SVG-OM2, SVG-OM3 History of esophagogastroduodenoscopy (EGD) History of herniorrhaphy INGUINAL HERNIA REPAIR History of tonsillectomy Family History Father Family history of diabetes mellitus Social History Smoking Status: Never smoker Second Hand Exposure: No; Hx Alcohol Use: No Hx Substance Use: No Preferred Language: Venezuelan Communication Ability: Effective Visual Impairment: No Limitations 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 Beliefs That Will Affect Care: None marital status: Single Current Living Situation: Family Feels Safe at Home: Yes Assistive Devices: None Review of Systems Review of Systems: All systems reviewed & are unremarkable except as noted in HPI & below Physical Exam Constitutional: well developed; no acute distress Eyes: no scleral abnormality and no corneal abnormality ENMT: Mouth: no oral mucosal abnormality and oral mucous membranes not dry Neck: normal visual inspection and trachea midline Respiratory: normal respiratory effort Auscultation: lungs clear to auscultation bilaterally Cardiovascular: Rate/Rhythm: regular rate Heart Sounds: normal S1 and normal S2 Extremities: + pedal edema and + AV fistula Musculoskeletal: Extremities: no cyanosis and no clubbing Skin: normal turgor; no lesions Neurologic: Motor/Sensory: no tremor and no asterixis Psychiatric: Orientation: alert and oriented x 3 Results & Data ([facility]) Vital Signs (Past 12 Hours) Vital Signs Temp Pulse Pulse Resp BP BP Pulse Ox 06/15/21 18:43 36.8 C 79 18 169/78 H 99 06/15/21 17:00 37.0 C 79 19 167/80 H 100 06/15/21 16:00 36.8 C 74 19 169/90 H 100 06/15/21 14:09 84 17 164/61 H 100 06/15/21 13:00 36.8 C 79 19 179/81 H 100 06/15/21 11:35 78 17 174/96 H 99 06/15/21 10:05 36.6 C 79 20 137/79 96 Laboratory Results Laboratory Results - last 24 hr 06/15/21 06/15/21 06/15/21 11:45 11:45 11:45 WBC 8.24 RBC 2.55 L Hgb 8.3 L Hct 25.3 L MCV 99.2 MCH 32.5 MCHC 32.8 RDW Std Deviation 52.7 H RDW Coeff of Adam 14.8 H Plt Count 145 MPV 9.8 Immature Gran % (Auto) 0.2 Neut % (Auto) 74.1 Lymph % (Auto) 13.2 [place] % (Auto) 11.4 Eos % (Auto) 0.6 Baso % (Auto) 0.5 Neut # (Auto) 6.10 Lymph # (Auto) 1.09 L [place] # (Auto) 0.94 H Eos # (Auto) 0.05 Baso # (Auto) 0.04 Immature Gran # (Auto) 0.02 PT 10.4 INR 1.0 Sodium 133 L Potassium 4.7 Chloride 95 L Carbon Dioxide 29 Anion Gap 9.0 BUN 60 H Creatinine 11.70 H* Est Cr Clr Drug Dosing 8.8 Est GFR ( Amer) 4.9 Est GFR (Non-Af Amer) 4.3 BUN/Creatinine Ratio 5.1 L Glucose 103 H Calcium 9.6 Total Bilirubin 0.4 AST 5 L ALT 13 Alkaline Phosphatase 113 Total Protein 7.2 Albumin 3.7 Globulin 3.5 Albumin/Globulin Ratio 1.1 Lipase 101 COVID-19 Eval Order SARS-CoV-2 (PCR) 06/15/21 06/15/21 06/15/21 13:15 13:15 15:17 WBC 8.02 RBC 2.56 L Hgb 8.4 L Hct 25.8 L MCV 100.8 H MCH 32.8 MCHC 32.6 RDW Std Deviation 54.0 H RDW Coeff of Adam 14.7 H Plt Count 153 MPV 9.9 Immature Gran % (Auto) Neut % (Auto) Lymph % (Auto) [place] % (Auto) Eos % (Auto) Baso % (Auto) Neut # (Auto) Lymph # (Auto) [place] # (Auto) Eos # (Auto) Baso # (Auto) Immature Gran # (Auto) PT INR Sodium Potassium Chloride Carbon Dioxide Anion Gap BUN Creatinine Est Cr Clr Drug Dosing Est GFR ( Amer) Est GFR (Non-Af Amer) BUN/Creatinine Ratio Glucose Calcium Total Bilirubin AST ALT Alkaline Phosphatase Total Protein Albumin Globulin Albumin/Globulin Ratio Lipase COVID-19 Eval Order Covid19 at [facility] SARS-CoV-2 (PCR) NEGATIVE PG Care Time/CCT Total # of Minutes Spent Total Time Spent with Patient: Total time spent is greater than 50% in coordination of care (as documented) at patient's floor/unit and/or counseling patient: Coding Level of Care Code 99567 Inpt Consult Level 4 Diagnoses Hemorrhage of cyst of [place] kidney N28.89; N28.1 Anemia D64.9 Chronic kidney disease, stage V N18.5 Secondary hyperparathyroidism of renal origin N25.81
[2021-06-15] MEDS ORDERED: POLYETHYLENE (MIRALAX) 17 GM PACK PO PRN (20:58)
[2021-06-15] MEDS ORDERED: NITROGLYCERIN SL 0.4 MG/TAB TAB SL PRN (20:58)
[2021-06-15] MEDS ORDERED: SODIUM CHLORIDE 0.9% 250 ML IV PRN (20:58)
[2021-06-15] MEDS ORDERED: ONDANSETRON INJ 2 MG/ML 2 ML VIAL IV PRN (20:58)
[2021-06-15] MEDS ORDERED: LORATADINE 10 MG TAB PO PRN (20:58)
[2021-06-15 21:44] LABS: Hematocrit (blood only) 27.3 % (42-52)
[2021-06-15] MEDS: carvediloL 25 MG TAB PO SCH (21:57)
[2021-06-15] MEDS: ROSUVASTATIN CALCIUM 10 MG TAB PO SCH (21:58)
[2021-06-15] MEDS: amLODIPine BESYLATE 5 MG TAB PO SCH (22:00)
[2021-06-15] MEDS ORDERED: Nursing to Pharmacy Communication SCH (22:00)
[2021-06-16 06:10] LABS: Appearance Urine Clear (Clear); Bacteria Urine Automated Negative (Negative); Bilirubin Urine Negative (Negative); Blood Urine Trace (Negative); Cast Urine Automated 0 /lpf (0-5); Color Urine Yellow; Epithelial Cell Urine Auto 0-5 /lpf (0-5); Glucose Urine UA Trace (Negative); Ketones Urine Negative (Negative); Leukocyte Esterase Urine Trace (Negative); Nitrite Urine Negative (Negative); RBC Urine Automated 0-4 /hpf (0-4); Specific Gravity Urine 1.008 (1.000-1.030); Urobilinogen Urine Negative (Negative); pH Urine 8.5 (4.5-7.5)
[2021-06-16 06:13] LABS: Protein Urine 2+ (Negative)
[2021-06-16] MEDS ORDERED: IRON SUCROSE 100 MG in SYRINGE 0 ML IV ONE (07:00)
[2021-06-16] MEDS ORDERED: EPOETIN ALFA 10,000 UNITS/ML VIAL IV ONE (07:00)
[2021-06-16 07:48] LABS: Hematocrit (blood only) 25.2 % (42-52); Hemoglobin 8.1 g/dL (14.0-18.0); Mean Corpuscular Hemoglobin 32.1 pg (25-34); Mean Corpuscular Hgb Conc 32.1 g/dL (32-36); Mean Platelet Volume 9.6 fL (7.4-10.4); Platelet Count 140 K/uL (130-400); RDW Coefficient of Variation 14.8 % (11.5-14.5); RDW Standard Deviation 53.2 fL (36.4-46.3); Red Blood Count 2.52 M/uL (4.7-6.1)
[2021-06-16 08:26] LABS: BUN Creatinine Ratio 5.3 (10-20); Calcium 9.8 mg/dl (8.5-10.1); Creatinine Clr Calc Pharmacy 7.4 ml/min; Est GFR (African American) 4.1 ml/min; Est GFR (Non-African American) 3.5 ml/min; Potassium 5.4 mmol/L (3.5-5.1)
[2021-06-16] MEDS ORDERED: CALCITRIOL 0.25 MCG CAPSULE PO SCH (09:00)
[2021-06-16] MEDS ORDERED: amLODIPine BESYLATE 5 MG TAB PO SCH (09:00)
--- NOTE | 2021-06-16 09:56 | Nephrology Progress Note ---
Date of Service June 16, 2021 Assessment & Plan (1) Chronic kidney disease, stage V: Plan: Maintained on HD TTS. BP and volume status acceptable. Orders for HD today entered into EMR and reviewed with dialysis nurse. Outpatient Rx 4 hr 2/ 200 optiflux 500/800. EDW 112.5 kg. Ed has been leaving slightly below EDW. UF goal today 1-2 L, as tolerated. Medications appropriate for kidney function. (2) Hemorrhage of cyst of [place] kidney: Plan: Supportive care. Serial H/H. Urology consultation. (3) Anemia: Plan: Epogen and Venofer with HD today. (4) Secondary hyperparathyroidism of renal origin: Plan: Velphoro QA for hyperphosphatemia. Calcitriol as Rx. Admission and Anticipated Discharge Date Admission Date: June 15, 2021 Subjective No acute events overnight. Pain improved. No fevers or chills. Voided this AM dark urine. Breathing comfortably. Review of Systems Review of Systems: All systems reviewed & are unremarkable except as noted in HPI & below Physical Exam Constitutional: well developed; no acute distress Eyes: no scleral abnormality and no corneal abnormality ENMT: Mouth: no oral mucosal abnormality and oral mucous membranes not dry Neck: normal visual inspection and trachea midline Respiratory: normal respiratory effort Auscultation: lungs clear to auscultation bilaterally Cardiovascular: Rate/Rhythm: regular rate Heart Sounds: normal S1 and normal S2 Extremities: + pedal edema and + AV fistula Musculoskeletal: Extremities: no cyanosis and no clubbing Skin: normal turgor; no lesions Neurologic: Motor/Sensory: no tremor and no asterixis Psychiatric: Orientation: alert and oriented x 3 Results & Data ([facility]) Vital Signs (Past 12 Hours) Vital Signs Temp Pulse Pulse Resp BP Pulse Ox 06/16/21 08:56 76 06/16/21 07:09 36.8 C 74 20 157/90 H 97 06/16/21 03:28 36.7 C 76 20 155/85 H 98 06/15/21 23:01 36.9 C 76 20 125/68 97 06/15/21 22:20 82 Laboratory Results Laboratory Results - last 24 hr 06/15/21 06/15/21 06/15/21 11:45 11:45 11:45 WBC 8.24 RBC 2.55 L Hgb 8.3 L Hct 25.3 L MCV 99.2 MCH 32.5 MCHC 32.8 RDW Std Deviation 52.7 H RDW Coeff of Adam 14.8 H Plt Count 145 MPV 9.8 Immature Gran % (Auto) 0.2 Neut % (Auto) 74.1 Lymph % (Auto) 13.2 [place] % (Auto) 11.4 Eos % (Auto) 0.6 Baso % (Auto) 0.5 Neut # (Auto) 6.10 Lymph # (Auto) 1.09 L [place] # (Auto) 0.94 H Eos # (Auto) 0.05 Baso # (Auto) 0.04 Immature Gran # (Auto) 0.02 PT 10.4 INR 1.0 Sodium 133 L Potassium 4.7 Chloride 95 L Carbon Dioxide 29 Anion Gap 9.0 BUN 60 H Creatinine 11.70 H* Est Cr Clr Drug Dosing 8.8 Est GFR ( Amer) 4.9 Est GFR (Non-Af Amer) 4.3 BUN/Creatinine Ratio 5.1 L Glucose 103 H Calcium 9.6 Total Bilirubin 0.4 AST 5 L ALT 13 Alkaline Phosphatase 113 Total Protein 7.2 Albumin 3.7 Globulin 3.5 Albumin/Globulin Ratio 1.1 Lipase 101 Urine Color Urine Appearance Urine pH Ur Specific Adrian Urine Protein Urine Glucose (UA) Urine Ketones Urine Blood Urine Nitrite Urine Bilirubin Urine Urobilinogen Ur Leukocyte Esterase Urine WBC (Auto) Urine RBC (Auto) U Hyaline Cast (Auto) U Epithel Cells (Auto) Urine Bacteria (Auto) COVID-19 Eval Order SARS-CoV-2 (PCR) Blood Type Blood Type Recheck Antibody Screen Crossmatch 06/15/21 06/15/21 06/15/21 13:15 13:15 15:17 WBC 8.02 RBC 2.56 L Hgb 8.4 L Hct 25.8 L MCV 100.8 H MCH 32.8 MCHC 32.6 RDW Std Deviation 54.0 H RDW Coeff of Adam 14.7 H Plt Count 153 MPV 9.9 Immature Gran % (Auto) Neut % (Auto) Lymph % (Auto) [place] % (Auto) Eos % (Auto) Baso % (Auto) Neut # (Auto) Lymph # (Auto) [place] # (Auto) Eos # (Auto) Baso # (Auto) Immature Gran # (Auto) PT INR Sodium Potassium Chloride Carbon Dioxide Anion Gap BUN Creatinine Est Cr Clr Drug Dosing Est GFR ( Amer) Est GFR (Non-Af Amer) BUN/Creatinine Ratio Glucose Calcium Total Bilirubin AST ALT Alkaline Phosphatase Total Protein Albumin Globulin Albumin/Globulin Ratio Lipase Urine Color Urine Appearance Urine pH Ur Specific Adrian Urine Protein Urine Glucose (UA) Urine Ketones Urine Blood Urine Nitrite Urine Bilirubin Urine Urobilinogen Ur Leukocyte Esterase Urine WBC (Auto) Urine RBC (Auto) U Hyaline Cast (Auto) U Epithel Cells (Auto) Urine Bacteria (Auto) COVID-19 Eval Order Covid19 at [facility] SARS-CoV-2 (PCR) NEGATIVE Blood Type Blood Type Recheck Antibody Screen Crossmatch 06/15/21 06/15/21 06/15/21 15:17 21:22 21:22 WBC RBC Hgb 9.0 L Hct 27.3 L MCV MCH MCHC RDW Std Deviation RDW Coeff of Adam Plt Count MPV Immature Gran % (Auto) Neut % (Auto) Lymph % (Auto) [place] % (Auto) Eos % (Auto) Baso % (Auto) Neut # (Auto) Lymph # (Auto) [place] # (Auto) Eos # (Auto) Baso # (Auto) Immature Gran # (Auto) PT INR Sodium Potassium Chloride Carbon Dioxide Anion Gap BUN Creatinine Est Cr Clr Drug Dosing Est GFR ( Amer) Est GFR (Non-Af Amer) BUN/Creatinine Ratio Glucose Calcium Total Bilirubin AST ALT Alkaline Phosphatase Total Protein Albumin Globulin Albumin/Globulin Ratio Lipase Urine Color Urine Appearance Urine pH Ur Specific Adrian Urine Protein Urine Glucose (UA) Urine Ketones Urine Blood Urine Nitrite Urine Bilirubin Urine Urobilinogen Ur Leukocyte Esterase Urine WBC (Auto) Urine RBC (Auto) U Hyaline Cast (Auto) U Epithel Cells (Auto) Urine Bacteria (Auto) COVID-19 Eval Order SARS-CoV-2 (PCR) Blood Type A Positive Blood Type Recheck A Positive Antibody Screen NEGATIVE Crossmatch See Detail 06/16/21 06/16/21 06/16/21 05:15 07:26 07:26 WBC 6.10 RBC 2.52 L Hgb 8.1 L Hct 25.2 L MCV 100.0 MCH 32.1 MCHC 32.1 RDW Std Deviation 53.2 H RDW Coeff of Adam 14.8 H Plt Count 140 MPV 9.6 Immature Gran % (Auto) Neut % (Auto) Lymph % (Auto) [place] % (Auto) Eos % (Auto) Baso % (Auto) Neut # (Auto) Lymph # (Auto) [place] # (Auto) Eos # (Auto) Baso # (Auto) Immature Gran # (Auto) PT INR Sodium 134 L Potassium 5.4 H Chloride 96 L Carbon Dioxide 30 Anion Gap 9.0 BUN 73 H Creatinine 13.70 H* D Est Cr Clr Drug Dosing 7.4 Est GFR ( Amer) 4.1 Est GFR (Non-Af Amer) 3.5 BUN/Creatinine Ratio 5.3 L Glucose 94 Calcium 9.8 Total Bilirubin AST ALT Alkaline Phosphatase Total Protein Albumin Globulin Albumin/Globulin Ratio Lipase Urine Color Yellow Urine Appearance Clear Urine pH 8.5 H Ur Specific Adrian 1.008 Urine Protein 2+ H Urine Glucose (UA) Trace H Urine Ketones Negative Urine Blood Trace H Urine Nitrite Negative Urine Bilirubin Negative Urine Urobilinogen Negative Ur Leukocyte Esterase Trace H Urine WBC (Auto) 1-5 Urine RBC (Auto) 0-4 U Hyaline Cast (Auto) 0 U Epithel Cells (Auto) 0-5 Urine Bacteria (Auto) Negative COVID-19 Eval Order SARS-CoV-2 (PCR) Blood Type Blood Type Recheck Antibody Screen Crossmatch PG Care Time/CCT Total # of Minutes Spent Total Time Spent with Patient: Total time spent is greater than 50% in coordination of care (as documented) at patient's floor/unit and/or counseling patient: Coding Level of Care Code 50332 Subseq Hosp Care Lvl 3 Diagnoses Chronic kidney disease, stage V N18.5 Hemorrhage of cyst of [place] kidney N28.89; N28.1 Anemia D64.9 Secondary hyperparathyroidism of renal origin N25.81
[2021-06-16] MEDS: carvediloL 25 MG TAB PO SCH ×2 (10:07→19:15)
[2021-06-16] MEDS: CHOLECALCIFEROL 1,000 UNITS 25 MCG TAB PO SCH (10:08)
--- NOTE | 2021-06-16 12:42 | Urology Progress Note ---
Date of Service June 16, 2021 Assessment & Plan (1) Hemorrhage of cyst of [place] kidney: Plan: 55-year-old male with polycystic kidneys with acute hemorrhage of the left renal cyst with retroperitoneal bleed tracking into the scrotum. - Afebrile, lab work reviewed - Creatinine 13.7, Hgb 8.1, WBC 6.10 - Pt hemodynamically stable at present - Scheduled for hemodialysis today per nephrology - He is tolerating diet and ambulating - Continue to monitor H/H - can transition to Q8H or Q12H - Transfuse as needed per primary team - Recommend scrotal elevation/support - will likely take several weeks for swelling to resolve - Continue supportive care and management per primary team - If becomes hemodynamically unstable or hemoglobins continued to downtrend, may require transfer to tertiary care center with interventional radiology for possible embolization - Will continue to follow while inpatient Admission and Anticipated Discharge Date Admission Date: June 15, 2021 Supervising Physician Co-Signing Physician Notes Discussed patient with GILBERTO and saw personally. Pain improving. Swelling and bruising of scrotum expected. Hgb relatively stable. HR and BP stable. Tolerating diet and ambulating. Plan for HD today. Can space out Hgb checks to q8 or q12 now. Defer to primary team for threshold to transfuse. Subjective Patient seen and examined at bedside with Dr. Baez. He is awake and sitting up at the side of the bed. No acute issues overnight. Reports some left scrotal and flank discomfort. He is ambulating and tolerating diet. No f/c/n/v. He is scheduled for HD today at 1300. Review of Systems Constitutional: as per Subjective / HPI Gastrointestinal: as per Subjective / HPI Genitourinary: + as per Subjective / HPI Physical Exam Constitutional: well developed and well nourished; no acute distress and not ill appearing Respiratory: normal respiratory effort; no respiratory distress and no labored breathing Gastrointestinal (Abdomen): Inspection/Auscultation: abdomen normal to inspection; abdomen not distended Musculoskeletal: Head/Neck/Chest: normocephalic and head atraumatic Skin: No ecchymosis noted on left flank Neurologic: moves all extremities and awake Psychiatric: Orientation: alert and oriented x 3 Genitourinary: no CVA tenderness left scrotal edema, mild tenderness to palpation, ecchymosis noted Results & Data ([facility]) Vital Signs (Past 12 Hours) Vital Signs Temp Pulse Pulse Resp BP Pulse Ox 06/16/21 11:38 36.7 C 73 20 166/90 H 97 06/16/21 08:56 76 06/16/21 07:09 36.8 C 74 20 157/90 H 97 06/16/21 03:28 36.7 C 76 20 155/85 H 98 PG Care Time/CCT Total # of Minutes Spent Total Time Spent with Patient: Total time spent is greater than 50% in coord ination of care (as documented) at patient's floor/unit and/or counseling patient: Coding Level of Care Code 22824 Subseq Hosp Care Lvl 2 Diagnoses Hemorrhage of cyst of [place] kidney N28.89; N28.1
[2021-06-16 13:14] LABS: Hematocrit (blood only) 24.5 % (42-52)
[2021-06-16] MEDS: SEVELAMER HCL 800 MG TABLET PO SCH ×2 (13:25→19:13)
--- NOTE | 2021-06-16 19:10 | Hospitalist Progress Note ---
Date of Service June 16, 2021 Assessment & Plan (1) Right flank pain: (2) Anemia: (3) Hemorrhage of cyst of [place] kidney: Plan: This is a 55yo M with a PMH of CAD s/p CABG x 3 in 2008, ESRD on hemodialysis, renal transplant candidate, hypertension, anemia of chronic kidney disease, history of lupus, history of gastric ulcer hyperparathyroidism, DLD and other medical problems listed below who presents with R flank pain since yesterday. Hemodynamically stable CT abd/pelvis wo con showing * innumerable renal cysts bilaterally in this patient with end-stage renal disease. Some of the cysts are hemorrhagic * Diffuse left greater than right hyperdense perinephric stranding, tracking into the scrotum, likely represents a ruptured left hemorrhagic cyst Initial hgb 8.3 (baseline ~ 10). Repeat hgb 4 hours later shows stable hgb at 8.4 consented for blood, type and cross, hold 2u PRBCs - transfuse if patient becomes hemodynamically unstable Higher threshold for blood transfusion due to patient being a renal transplant candidate ER provider discussed the case with physician in [place] If bleeding is prolonged and severe, may require percutaneous transarterial embolization by IR in [place] Urology on board Recommend scrotal elevation/support - will likely take several weeks for swelling to resolve Continue supportive care If becomes hemodynamically unstable or hemoglobins continued to downtrend, may require transfer to tertiary care center with interventional radiology for possible embolization Hgb 8.1 this morning Nephrology on board Continue pain control (4) CKD (chronic kidney disease) stage V requiring chronic dialysis: Plan: Follows with Dr. Diop, HD [facility] Nephro on board S/P HD done today (5) Hypertension: Plan: Optimize pain control Continue amlodipine, Coreg (6) CAD (coronary artery disease): Plan: H/o CABG in 2008, denies intervention since then Holding aspirin in setting of bleeding renal cyst Continue statin, beta chet (7) Secondary hyperparathyroidism of renal origin: Plan: Receives Calcitriol 3x/week with HD DVT Ppx: SCDs Code status: FULL PCP: Andie Dispo: Continue monitor closely Admission and Anticipated Discharge Date Admission Date: June 15, 2021 Subjective Pt was seen and examined for follow up of testicular pain Lying in bed with no acute distress Pt said that he continues to have pain and swelling in his testicles He said that he feels fine Denies any chest pain, palpitation, dizziness and SOB Review of Systems Review of Systems: All systems reviewed & are unremarkable except as noted in Subjective Physical Exam Physical Exam: General- No acute distress Head- atraumatic Eyes- PERRL, EOMI, ENT- oropharynx clear Neck- supple, no JVD Lungs- clear to auscultation Heart- regular rhythm; no murmur Abdomen- normal bowel sounds, soft, nontender Genitourinary:no CVA tenderness left scrotal edema, mild tenderness to palpation, ecchymosis noted Extremities- no calf tenderness Neuro- alert, oriented x 3; PERRL, EOMI; no facial palsy; no dysarthria Skin- warm & dry Results & Data Results & Data ([facility]) Vital Signs (Past 12 Hours) Vital Signs Temp Pulse Pulse Resp BP BP Pulse Ox 06/16/21 18:40 37.3 C 77 175/103 H 06/16/21 18:21 36.9 C 70 06/16/21 18:20 79 159/91 H 06/16/21 18:00 78 167/92 H 06/16/21 17:40 76 162/90 H 06/16/21 17:20 82 148/59 H 06/16/21 17:00 76 160/86 H 06/16/21 16:40 74 143/86 H 06/16/21 16:20 96 H 114/66 06/16/21 16:00 69 134/79 06/16/21 15:40 78 132/85 06/16/21 15:20 70 138/88 06/16/21 15:00 69 159/89 H 06/16/21 14:41 70 154/91 H 06/16/21 14:19 70 06/16/21 11:38 36.7 C 73 20 166/90 H 97 06/16/21 08:56 76
[2021-06-16] MEDS: amLODIPine BESYLATE 5 MG TAB PO SCH (19:15)
[2021-06-16] MEDS: ROSUVASTATIN CALCIUM 10 MG TAB PO SCH (19:16)
[2021-06-16 19:58] LABS: Hematocrit (blood only) 26.6 % (42-52); Hemoglobin 8.5 g/dL (14.0-18.0)
[2021-06-17] MEDS: SEVELAMER HCL 800 MG TABLET PO SCH ×2 (08:11→11:35)
[2021-06-17] MEDS: carvediloL 25 MG TAB PO SCH (08:11)
[2021-06-17] MEDS: CHOLECALCIFEROL 1,000 UNITS 25 MCG TAB PO SCH (08:11)
[2021-06-17 08:12] LABS: Hematocrit (blood only) 26.7 % (42-52); Hemoglobin 8.6 g/dL (14.0-18.0); Mean Corpuscular Hemoglobin 32.5 pg (25-34); Mean Corpuscular Hgb Conc 32.2 g/dL (32-36); Mean Corpuscular Volume 100.8 fL (80-100); Mean Platelet Volume 9.7 fL (7.4-10.4); Platelet Count 152 K/uL (130-400); RDW Coefficient of Variation 14.7 % (11.5-14.5); RDW Standard Deviation 54.4 fL (36.4-46.3); Red Blood Count 2.65 M/uL (4.7-6.1); White Blood Count 4.21 K/uL (4.8-10.8)
[2021-06-17 09:01] LABS: BUN Creatinine Ratio 4.4 (10-20); Calcium 9.8 mg/dl (8.5-10.1); Est GFR (African American) 6.6 ml/min; Est GFR (Non-African American) 5.7 ml/min; Potassium 4.7 mmol/L (3.5-5.1)
--- NOTE | 2021-06-17 09:42 | Nephrology Progress Note ---
Date of Service June 17, 2021 Assessment & Plan (1) Chronic kidney disease, stage V: Plan: Maintained on HD TTS. BP and volume status acceptable. Adequate clearance with HD. Electrolytes acceptable. Outpatient Rx 4 hr 200 optiflux 500/800. EDW 112.5 kg. Ed has been leaving slightly below EDW. Outpatient EDW will be adjusted accordingly. Next planned treatment is tomorrow Medications appropriate for kidney function. Ed was scheduled to see Dr. Alberto as an outpatient for routine evaluation of AVF. AVF is functioning well but fistulogram anticipated as outpatient. This will be rescheduled. I discussed the plan of care with Dr. Griffith this AM. (2) Hemorrhage of cyst of [place] kidney: Plan: Supportive care. Serial H/H. Urology consultation. (3) Anemia: Plan: Epogen and Venofer with HD today. (4) Secondary hyperparathyroidism of renal origin: Plan: Velphoro QAC for hyperphosphatemia. Calcitriol as Rx. Admission and Anticipated Discharge Date Admission Date: June 15, 2021 Subjective No acute events overnight. No complaints this AM. Some mild pain persists but Ed feels that he is getting around well. He feels ready to return home and acknowledges the need to rest for a while while he heals. Tolerated HD well yesterday without complications. Review of Systems Review of Systems: All systems reviewed & are unremarkable except as noted in HPI & below Physical Exam Constitutional: well developed; no acute distress Eyes: no scleral abnormality and no corneal abnormality ENMT: Mouth: no oral mucosal abnormality and oral mucous membranes not dry Neck: normal visual inspection and trachea midline Respiratory: normal respiratory effort Auscultation: lungs clear to auscultation bilaterally Cardiovascular: Rate/Rhythm: regular rate Heart Sounds: normal S1 and normal S2 Extremities: + pedal edema and + AV fistula Musculoskeletal: Extremities: no cyanosis and no clubbing Skin: normal turgor; no lesions Neurologic: Motor/Sensory: no tremor and no asterixis Psychiatric: Orientation: alert and oriented x 3 Results & Data ([facility]) Vital Signs (Past 12 Hours) Vital Signs Temp Pulse Pulse Resp BP Pulse Ox 06/17/21 07:00 36.9 C 73 20 169/101 H 93 06/17/21 03:00 36.8 C 73 18 171/94 H 96 06/16/21 23:39 77 06/16/21 23:00 37.3 C 74 16 136/74 95 06/16/21 22:18 78 06/16/21 21:46 37.1 C 80 18 167/92 H 96 Laboratory Results Laboratory Results - last 24 hr 06/16/21 06/16/21 06/17/21 12:59 19:48 07:53 WBC 4.21 L RBC 2.65 L Hgb 8.0 L 8.5 L 8.6 L Hct 24.5 L 26.6 L 26.7 L MCV 100.8 H MCH 32.5 MCHC 32.2 RDW Std Deviation 54.4 H RDW Coeff of Adam 14.7 H Plt Count 152 MPV 9.7 Sodium Potassium Chloride Carbon Dioxide Anion Gap BUN Creatinine Est Cr Clr Drug Dosing Est GFR ( Amer) Est GFR (Non-Af Amer) BUN/Creatinine Ratio Glucose Calcium 06/17/21 07:53 WBC RBC Hgb Hct MCV MCH MCHC RDW Std Deviation RDW Coeff of Adam Plt Count MPV Sodium 136 Potassium 4.7 Chloride 101 Carbon Dioxide 27 Anion Gap 9.0 BUN 40 H Creatinine 9.14 H* D Est Cr Clr Drug Dosing 11.0 Est GFR ( Amer) 6.6 Est GFR (Non-Af Amer) 5.7 BUN/Creatinine Ratio 4.4 L Glucose 88 Calcium 9.8 PG Care Time/CCT Total # of Minutes Spent Total Time Spent with Patient: Total time spent is greater than 50% in coordination of care (as documented) at patient's floor/unit and/or counseling patient: Coding Level of Care Code 31564 Subseq Hosp Care Lvl 3 Diagnoses Chronic kidney disease, stage V N18.5 Hemorrhage of cyst of [place] kidney N28.89; N28.1 Anemia D64.9 Secondary hyperparathyroidism of renal origin N25.81
--- NOTE | 2021-06-17 10:28 | Urology Progress Note ---
Date of Service June 17, 2021 Assessment & Plan (1) Hemorrhage of cyst of [place] kidney: Plan: 55-year-old male with polycystic kidneys with acute hemorrhage of the left renal cyst with retroperitoneal bleed tracking into the scrotum. - Plan of care reviewed with Dr. Baez, urologist ammunition and explosives handler - Afebrile, lab work reviewed - Creatinine 9.14, Hgb 8.6, WBC 4.21 - Pt hemodynamically stable at present - He is tolerating regular diet and ambulating - Continue to monitor H/H - Defer to primary team for threshold to transfuse - Recommend scrotal elevation/support - swelling and bruising will likely take several weeks to resolve - Continue supportive care and management per primary team - No acute intervention indicated at this time - If becomes hemodynamically unstable or hemoglobins continued to downtrend, may require transfer to tertiary care center with interventional radiology for possible embolization - Will arrange outpatient follow-up with our service - recommend f/u in approximately 2 months with MRI of abdomen without contrast to ensure resolution of hemorrhage and rule out other etiologies of bleeding - will sign off, if he remains in the hospital we will follow peripherally, reconsult us with additional questions, concerns or changes in patient status. Admission and Anticipated Discharge Date Admission Date: June 15, 2021 Supervising Physician Co-Signing Physician Notes Discussed patient and plan with GILBERTO. Agree with above. Subjective Patient awake, alert and sitting up in bed. No acute issues overnight. Offers no complaints at present. No flank pain. Left scrotal discomfort improved today. He is voiding without difficulty. No dysuria or hematuria. Tolerating regular diet, no nausea or vomiting. No fever or chills. He reports that he may be going home today. Review of Systems Constitutional: as per Subjective / HPI Gastrointestinal: as per Subjective / HPI Genitourinary: + as per Subjective / HPI Physical Exam Constitutional: well developed and well nourished; no acute distress and not ill appearing Respiratory: normal respiratory effort; no respiratory distress and no labored breathing Gastrointestinal (Abdomen): Inspection/Auscultation: abdomen normal to inspection; abdomen not distended Musculoskeletal: Head/Neck/Chest: normocephalic and head atraumatic Skin: No ecchymosis noted on left flank Neurologic: moves all extremities and awake Psychiatric: Orientation: alert and oriented x 3 Genitourinary: no CVA tenderness left scrotal edema, mild tenderness to palpation, ecchymosis noted Results & Data ([facility]) Vital Signs (Past 12 Hours) Vital Signs Temp Pulse Pulse Resp BP Pulse Ox 06/17/21 07:00 36.9 C 73 20 169/101 H 93 06/17/21 03:00 36.8 C 73 18 171/94 H 96 06/16/21 23:39 77 06/16/21 23:00 37.3 C 74 16 136/74 95 PG Care Time/CCT Total # of Minutes Spent Total Time Spent with Patient: Total time spent is greater than 50% in c oordination of care (as documented) at patient's floor/unit and/or counseling patient: Coding Level of Care Code 34400 Subseq Hosp Care Lvl 2 Diagnoses Hemorrhage of cyst of [place] kidney N28.89; N28.1
--- NOTE | 2021-06-17 12:47 | Hospitalist Progress Note ---
Date of Service June 17, 2021 Assessment & Plan (1) Right flank pain: (2) Hemorrhage of cyst of [place] kidney: Plan: This is a 55yo M with a PMH of CAD s/p CABG x 3 in 2008, ESRD on hemodialysis, renal transplant candidate, hypertension, anemia of chronic kidney disease, history of lupus, history of gastric ulcer hyperparathyroidism, DLD and other medical problems listed below who presents with R flank pain since yesterday. Hemodynamically stable CT abd/pelvis wo con showing * innumerable renal cysts bilaterally in this patient with end-stage renal disease. Some of the cysts are hemorrhagic * Diffuse left greater than right hyperdense perinephric stranding, tracking into the scrotum, likely represents a ruptured left hemorrhagic cyst Initial hgb 8.3 (baseline ~ 10). Repeat hgb 4 hours later shows stable hgb at 8.4 consented for blood, type and cross, hold 2u PRBCs - transfuse if patient becomes hemodynamically unstable Higher threshold for blood transfusion due to patient being a renal transplant candidate ER provider discussed the case with physician in [place] If bleeding is prolonged and severe, may require percutaneous transarterial embolization by IR in [place] Urology on board Recommend scrotal elevation/support - will likely take several weeks for swelling to resolve Continue supportive care If becomes hemodynamically unstable or hemoglobins continued to downtrend, may require transfer to tertiary care center with interventional radiology for possible embolization Will need outpatient follow-up with urology - recommend f/u in approximately 2 months with MRI of abdomen without contrast to ensure resolution of hemorrhage and rule out other etiologies of bleeding Hgb 8.6 this morning Nephrology on board Continue pain control (3) Anemia: Plan: Hgb 8.6 today Epogen and Venofer during HD yesterday Check CBC within 1 week to monitor hemoglobin (4) CKD (chronic kidney disease) stage V requiring chronic dialysis: Plan: Follows with Dr. Diop, HD [facility] Nephro on board Case discussed with Nephro Dr. Diop Next HD schedule for tomorrow OK to discharge home today from Nephro standpoint (5) Hypertension: Plan: Optimize pain control Continue amlodipine, Coreg (6) CAD (coronary artery disease): Plan: H/o CABG in 2008, denies intervention since then Holding aspirin in setting of bleeding renal cyst Continue statin, beta chet (7) Secondary hyperparathyroidism of renal origin: Plan: Receives Calcitriol 3x/week with HD DVT Ppx: SCDs Code status: FULL PCP: Andie Dispo: Discharge home today Admission and Anticipated Discharge Date Admission Date: June 15, 2021 Subjective Pt was seen and examined for follow up of testicular pain Lying in bed with no acute distress he said that the testicle swelling and pain improve He said that he feels fine He is very anxious to go home today Denies any chest pain, palpitation, dizziness and SOB Review of Systems Review of Systems: All systems reviewed & are unremarkable except as noted in Subjective Physical Exam Physical Exam: General- No acute distress Head- atraumatic Eyes- PERRL, EOMI, ENT- oropharynx clear Neck- supple, no JVD Lungs- clear to auscultation Heart- regular rhythm; no murmur Abdomen- normal bowel sounds, soft, nontender Genitourinary:no CVA tenderness left scrotal edema, mild tenderness to palpation, ecchymosis noted Extremities- no calf tenderness Neuro- alert, oriented x 3; PERRL, EOMI; no facial palsy; no dysarthria Skin- warm & dry Results & Data Results & Data ([facility]) Vital Signs (Past 12 Hours) Vital Signs Temp Pulse Resp BP Pulse Ox 06/17/21 11:18 36.6 C 67 18 138/79 97 06/17/21 07:00 36.9 C 73 20 169/101 H 93 06/17/21 03:00 36.8 C 73 18 171/94 H 96
--- NOTE | 2021-06-29 02:16 | Discharge Summary ---
Date of Service June 17, 2021 Admission HPI Per Admitting Provider This is a 55yo M with a PMH of CAD s/p CABG x 3 in 2008, ESRD on hemodialysis [place], renal transplant candidate, hypertension, anemia of chronic kidney disease, history of lupus, history of gastric ulcer hyperparathyroidism, DLD and other medical problems listed below who presents with R flank pain since yesterday. Developed left lower back pain yesterday around noon that migrated to lower left abdomen and scrotum. Noticed scrotal swelling today and came to ED for further evaluation. Describes pain as constant and sharp, 6/10 and worse with movement. Associated with intermittent nausea. No fever, chills, li ghtheadedness, headache, chest pain, SOB, vomiting, diarrhea or constipation. Does not make much urine. Case discussed with [facility] urology, nephro and [place] nephrology due to patient's pre-transplant status. Agreed that imaging consistent with hemorrhagic left renal cyst. Conservative management for now but if bleeding is prolonged and severe bleeding may require percutaneous transarterial embolization by IR in [place]. PRBCs prn if hgb dropping or patient becomes hemodynamically unstable. Admission Exam Per Admitting Provider General Appearance: WD/WN, vitals as above, NAD, sitting up in bed, pleasant, conversing easily Head: normocephalic, atraumatic Eyes: normal inspection, PERRL, conjunctivae normal, anicteric sclerae ENT: external ear and nose normal, oropharynx normal Neck: normal visual inspection, trachea midline, no thyromegaly Respiratory: normal respiratory effort, lungs clear to auscultation, no wheeze, rales, rhonchi. No accessory muscle use Cardiovascular: regular rate, rhythm, systolic murmur, normal peripheral pulses, no BLE edema. Vessels: no JVD Chest: normal inspection of chest Abdomen/GI: normal bowel sounds, soft, nontender, no hepatosplenomegaly : + scrotal edema Extremities/Musculoskeletal: LUE AV fistula, no cyanosis or clubbing, extremities motor strength 5/5 Neurologic: PERRL, EOMI, accommodation nl, no face palsy, no dysarthria, CN's II-XI intact bilaterally and moves all extremities Psychiatric: A+Ox3, euthymic affect Skin: no rashes, normal color, warm/dry Principal Diagnosis (1) Right flank pain: (2) Hemorrhage of cyst of [place] kidney: (3) Anemia: (4) CKD (chronic kidney disease) stage V requiring chronic dialysis: (5) Hypertension: (6) CAD (coronary artery disease): Discharge Exam General- No acute distress Head- atraumatic Eyes- PERRL, EOMI, ENT- oropharynx clear Neck- supple, no JVD Lungs- clear to auscultation Heart- regular rhythm; no murmur Abdomen- normal bowel sounds, soft, nontender Genitourinary:no CVA tenderness left scrotal edema, mild tenderness to palpation, ecchymosis noted Extremities- no calf tenderness Neuro- alert, oriented x 3; PERRL, EOMI; no facial palsy; no dysarthria Skin- warm & dry Discharge Data Allergies Allergy/AdvReac Type Severity Reaction Status Date / Time hydralazine Allergy Intermediate STIFF Verified 06/15/21 11:14 JOINTS Consultations 06/15/21 14:17 ED Decision to Admit Stat 06/15/21 15:18 Consult Nephrology Routine 06/15/21 15:19 Consult Urology Routine Ordered Studies 06/15/21 11:35 CT abd pelvis wo con Stat 06/15/21 16:18 US scrotum/testicle Urgent TESTICULAR ULTRASOUND HISTORY: scrotal swelling, eval for torsion, infection COMPARISON: None. FINDINGS: Right testis: Is measuring 4.2 x 2.3 x 2.5 cm. Normal blood flow is seen. No focal testicular lesions demonstrated. Mild hydrocele is visualized. Partially visualized right epididymis appear normal. Left testis: Is measured 4.4 x 1.5 x 3.4 cm. Shows normal blood flow and no evidence of focal testicular lesions. Minimal hydrocele is seen. Left epididymal head is slightly thickened. Diffuse scrotal edema is seen and appear to be more prominent on the left and associated with slight displacement of the right testicle according to live truck technician report. IMPRESSION: Normal appearance and blood flow of bilateral testes. Mild hydrocele is seen bilaterally. Diffuse scrotal edema. ACT 112: Negative or not required by law. The above report was generated using voice recognition software. It may contain grammatical, syntax or spelling errors. Electronically signed by: Shaila Shelton DO 06/15/2021 5:31 PM Dictated: 06/15/211725Transcribed: 06/15/211725 CT abd pelvis wo con CLINICAL INDICATION: MN ^CTR RM C11 ^Scrotal swelling, L flank pain, CKD stage V. TECHNIQUE: Helical axial images of the abdomen and pelvis were obtained and displayed at 5 and 1 mm intervals. Automated dose lowering techniques and/or adjustment according to patient size were utilized for this exam. This exam was performed with intravenous contrast. COMPARISON: None available at the time of this dictation. FINDINGS: Lower chest: There is suggestion of cardiomegaly in this patient with median sternotomy wires noted. Liver: Unremarkable. No focal lesions are seen. Gallbladder and biliary tree: No calcified gallstones. Normal caliber wall. No intra- or extrahepatic biliary ductal dilation. Pancreas: Unremarkable, no focal lesions. Spleen: Unremarkable. Adrenals: Unremarkable. Kidneys and ureters: Innumerable large renal cysts are seen bilaterally, with differing attenuation likely secondary to proteinaceous or hemorrhagic component. There is calcification of some of these cysts. There is hyperdense stranding about the left greater than right kidney, tracking down to the inguin al canals. Bowel: Unremarkable. Lymph nodes Retroperitoneal: Unremarkable. Mesenteric: Unremarkable. Pelvic: Unremarkable. Bladder: Unremarkable. Reproductive organs: Fluid is seen within the scrotum. Peritoneum: Normal Vessels: Atherosclerotic calcifications are seen. Abdominal wall: Unremarkable. Bones: Degenerative changes in the visualized spine. IMPRESSION: Innumerable renal cysts bilaterally in this patient with end-stage renal disease. Some of the cysts are hemorrhagic. Diffuse left greater than right hyperdense perinephric stranding, tracking into the scrotum, likely represents a ruptured left hemorrhagic cyst. ACT 112: Negative or not required by law. Electronically signed by: Marlon Gregory M.D. 06/15/2021 12:26 PM Dictated: 06/15/211216Transcribed: 06/15/21 121 Hospital Course (1) Right flank pain: (2) Hemorrhage of cyst of [place] kidney: This is a 55yo M with a PMH of CAD s/p CABG x 3 in 2008, ESRD on hemodialysis, renal transplant candidate, hypertension, anemia of chronic kidney disease, history of lupus, history of gastric ulcer hyperparathyroidism, DLD and other medical problems listed below who presents with R flank pain since yesterday. Hemodynamically stable CT abd/pelvis wo con showing * innumerable renal cysts bilaterally in this patient with end-stage renal disease. Some of the cysts are hemorrhagic * Diffuse left greater than right hyperdense perinephric stranding, tracking into the scrotum, likely represents a ruptured left hemorrhagic cyst Initial hgb 8.3 (baseline ~ 10). Repeat hgb 4 hours later shows stable hgb at 8.4 consented for blood, type and cross, hold 2u PRBCs - transfuse if patient becomes hemodynamically unstable Higher threshold for blood transfusion due to patient being a renal transplant candidate ER provider discussed the case with physician in [place] If bleeding is prolonged and severe, may require percutaneous transarterial embolization by IR in [place] Urology on board Recommend scrotal elevation/support - will likely take several weeks for swelling to resolve Continue supportive care If becomes hemodynamically unstable or hemoglobins continued to downtrend, may require transfer to tertiary care center with interventional radiology for possible embolization Will need outpatient follow-up with urology - recommend f/u in approximately 2 months with MRI of abdomen without contrast to ensure resolution of hemorrhage and rule out other etiologies of bleeding Hgb 8.6 this morning Nephrology on board Continue pain control (3) Anemia: Hgb 8.6 today Epogen and Venofer during HD yesterday Check CBC within 1 week to monitor hemoglobin (4) CKD (chronic kidney disease) stage V requiring chronic dialysis: Follows with Dr. Diop, HD [facility] Nephro on board Case discussed with Nephro Dr. Diop Next HD schedule for tomorrow OK to discharge home today from Nephro standpoint (5) Hypertension: Optimize pain control Continue amlodipine, Coreg (6) CAD (coronary artery disease): H/o CABG in 2008, denies intervention since then Holding aspirin in setting of bleeding renal cyst Continue statin, beta chet (7) Secondary hyperparathyroidism of renal origin: Receives Calcitriol 3x/week with HD DVT Ppx: SCDs Code status: FULL PCP: Andie Dispo: Discharge home today Total Time Total Time Spent Total Time Spent (In Minutes): 35 minutes Discharge Plan Discharge Items Patient Disposition: Home - Self-Care Reason For Visit: FLANK PAIN, ANEMIA, RUPTURED L HEMORRHAGIC RENAL C Discharge Diagnosis: (1) Right flank pain: (2) Hemorrhage of cyst of [place] kidney: (3) Anemia: (4) CKD (chronic kidney disease) stage V requiring chronic dialysis: (5) Hypertension: (6) CAD (coronary artery disease): Activity: Resume your previous activity Non-emergency contact: Primary Care Provider, Library Science Professor and Urologist Call non-emergency contact if: you have any medication questions and your temperature is above 101 Follow-up/Referrals: Artie Chaves MD [Primary Care Provider] - (Date & Time 06/23/2021 11:00 AM Provider Artie Chaves MD Department General Internal Medicine [facility] ) Diet: Dialysis Renal Ambulatory Orders: MR kita wo vasquez (Routine) Timeframe: 2 Months Facility: [facility] - Location: Radiology Main [place] Ordered By: Beverly Lewis Attending Provider Instructions: Follow up with your primary care provider Dr. Chaves on 06/23/2021 at 11:00 AM at the General Internal Medicine [facility] Follow up with urology ( in approximately 2 months with MRI of abdomen) Follow up with your nephrology Next dialysis is schedule for tomorrow Check CBC within 1 week to monitor your hemoglobin Continue to hold the aspirin and your physician will advise you when to resume the aspirin Avoid any other NSAID such as motrin, aleve, naproxen, Advil, Ibuprofen, .... Continue scrotal elevation and support - swelling and bruising will likely take several weeks to resolve Ok to take extra strength Tylenol for the pain Seek medical attention if your symptoms worsening Pending Studies at Discharge: No Stand-Alone Forms: My [facility] [address] [facility], Work/School Release, Smoking Cessation Medications and DC Order Prescriptions: Continued loratadine 10 mg Tablet 10 mg PO QAM PRN (Reason: Allergy Symptoms) RF: 0 omega 4-fiw-ptt-fish oil [Fish Oil] 1,000 mg (120 mg-180 mg) Capsule 1 cap PO QAM RF: 0 carvedilol [Coreg] 25 mg Tablet 50 mg PO BID RF: 0 nitroglycerin [Nitrostat] 0.4 mg Tablet, Sublingual 1 dose Sublingual DIRECTED PRN (Reason: Chest Pain) RF: 0 cholecalciferol (vitamin D3) [Vitamin D3] 1,000 unit Capsule 1,000 unit PO QAM RF: 0 rosuvastatin [Crestor] 10 mg Tablet 10 mg PO HS RF: 0 acetaminophen [Tylenol Extra Strength] 500 mg Tablet 1,000 mg PO Q8H PRN (Reason: Pain) RF: 0 Velphoro 500 mg tablet,chewable 1,000 mg PO TIDM RF: 0 amlodipine [Norvasc] 5 mg Tablet 5 mg PO QAM Qty: 30 RF: 5 calcitriol 0.25 mcg Capsule 0.25 mcg PO UD RF: 0 Discontinued aspirin 81 mg Tablet,Delayed Release (Dr/Ec) 81 mg PO DAILY RF: 0 Discharge Orders: Discharge Order (Routine); Ordered 06/17/21 Ordered By: Hernando Griffith Admission Data Admit Date/Time: 06/15/21 15:30 Attending Provider: Hernando Griffith Admit Provider: Hernando Griffith Primary Care Provider: Artie Chaves Other Providers: Hernando Griffith ; Eric Diop ; Jorge L Baez Other Interventions: Discharge Summary Assessment (RN) Last Done: 06/17/21 15:18
== END 2021-06-17 16:45 | disposition home or self-care (01) | DRG 698 ==
LOC: ED 10:03 → EDINP 15:30 → 2S 20:38 → 2W 06-16 20:52

== ENCOUNTER 2021-12-12 14:45 | Inpatient (IN) ==
--- NOTE | 2021-12-12 15:07 | Emergency Department Note ---
Impression & Plan Volume overload, Anemia of chronic disease, Chest pain, ESRD (end stage renal disease) on dialysis, Acute dyspnea ED Provider Note NAME: JENNIFER GILES AGE: 56 SEX: M : 1965 ARRIVES VIA: Walk-In INFORMANT: Patient, ED PROVIDER(S): Kiran Magaña MD Chief Complaint: Chest pain and shortness of breath HPI: Patient presents due to concern for shortness of breath and chest pain. Patient states that he had it last evening took 2 nitro without significant relief but upon going to dialysis morning the pain improved. Patient did return around 2 PM took 1 nitro with no relief. Patient has had some nausea with some associated shortness of breath. Patient does have prior history of triple bypass in 2008 bilateral nephrectomies in the pastThe patient states that he has had shortness of breath approximately 1 week in duration did have an outpatient chest x-ray completed at [facility] but did not receive any follow-up call. The patient does follow with Dr. Cohen with nephrology as well as Dr. Augustine with cardiology. Patient states that with regard to his chest pain he says is currently a 3 out of 10 left-sided achy nonradiating. He had a questionable episode of sweatiness but no nausea vomiting. The patient has had some exertional dyspnea. Patient has had a mild cough. Patient states that his shortness of breath was improved at the time of his dialysis. The patient does get Tuesday and has been compliant with that does take his medications. Patient did take his morning medications. Patient states that this does not feel similar to when he required a CABG. Patient does not make any urine. The patient does have some chronic lower extremity edema which he states is about the same. Patient states that he did have 10 pounds of fluid removed this morning. Patient did have a chest x-ray on December 10 which showed trace pleural effusions. On review the patient's most recent discharge summary the patient had been admitted on November 18 for bilateral nephrectomies secondary to longstanding polycystic kidney disease and CKD. Patient currently makes no urine. ROS: See HPI for pertinent positives and negatives. A total of 10 systems were reviewed and otherwise negative. Past medical history: See below Surgical history: See below Social history: See below Physical Exam: GENERAL: Mildly ill in appearance, wearing a mask. EYE EXAM: Normal conjunctiva. PERRL, no anisocoria and EOM's grossly intact w/o pain. Left eye exotropia. NECK: Supple, no nuchal rigidity, no adenopathy, non-tender. No signs of meningismus. LUNGS: Decreased breath sounds right base. Normal chest wall mechanics. HEART: NSR, no MRG. ABDOMEN: Abdomen soft, non-tender, healed incisional scars over the abdomen consistent with prior surgery, normo-active bowel sounds, no masses, no rebound or guarding. BACK: No CVA TTP. SKIN: No rashes and no bruising. UPPER EXTREMITIES: Upper extremities are grossly normal. LOWER EXTREMITIES: Grossly normal, 1+ symmetric bilateral lower extremity edema without any calf pain or asymmetry. Negative Homans' sign bilaterally NEURO EXAM: A&O x3, cranial nerves II-XII grossly intact, normal speech, moves all 4 extremities on command w/o issue. Differential diagnoses: Reactive airway disease, pneumonia, pneumothorax, COPD, CHF, infections, cardiac ischemia, pulmonary embolism, musculoskeletal, gastrointestinal, as well as other pathologies. Course: Patient was seen and evaluated the bedside. Full history physical exam was performed. EKG interpreted by me Normal sinus rhythm, rate of 86, normal intervals, normal axis, ST depressions in the lateral leads and high lateral leads. Patient does have mildly prolonged QT. Patient ST depression appears to be present from prior EKG completed June 15, 2021 but may have progressed. Imaging Studies: See Below Cardiac monitoring: An order was placed for continuous cardiac monitoring. The monitor shows a rate of 82 with sinus rhythm. MDM: Patient did present with concern for shortness of breath chest pain. The patient did have blood work completed along with an EKG troponin and chest x- ray. Patient's EKG did show some slight depressions that do appear as though they have progressed from prior EKG. The patient's chest pain did improve with nitro. Patient did receive the rest of a full dose aspirin. The patient has mild leukopenia with chronic and stable anemia with a hemoglobin of 9. The patient's kidney function is likely at baseline. BUN and potassium are not elevated. The patient's initial troponin was detectable but not elevated. The patient does have mildly elevated BNP. As the patient does not make any urine and the patient may have signs of volume overload even though the patient did have recent hemodialysis completed today I did speak with the on-call powerhouse electrician apprentice Dr. Kelley who stated the patient could have dialysis completed either today or tomorrow if needed. I did convey this to the on-call hospitalist Dr. Prince. I also did speak with the on-call survey field technician given the patient's slight change in EKG. I did explain the patient's symptoms as well as the EKG changes but without elevated troponin. Dr. Steward stated that in light of the patient's history and symptoms we will try Nitropaste at this time and would not consider heparinization unless the patient has a change in his troponin or develops worsening chest pain. Nitropaste was ordered. I did convey these recommendations to the on-call hospitalist. Past Med/Surg History Medical History Anemia of chronic disease No known hx of blood transfusions per patient; hgb stable in the 9s Chronic kidney disease, stage V Deep vein thrombosis LLE DVT (2016), no issues since Edema of scrotum Hemodialysis patient Hemorrhage of cyst of [place] [facility] History of COVID-19 Dx 10/2020 > symptoms at time of fever > resolved History of gastric ulcer Per records History of myocardial infarction 2008 History of polycystic kidney disease Hyperlipidemia Inflammatory arthritis Obesity Surgical History H/O eye surgery As an for strabismus History of cardiac cath S/P CABG X 3 (2008)= CASAREZ-LAD, SVG-OM2, SVG-OM3 2016, 07/2020 > no stents History of carpal tunnel release Left History of colonoscopy History of esophagogastroduodenoscopy (EGD) History of herniorrhaphy Inguinal hernia repair History of tonsillectomy S/P arteriovenous (AV) fistula creation Family History Father Family history of diabetes mellitus Social History Smoking Status: Never smoker Second Hand Exposure: No; Do You Dip or Chew Tobacco: No; Hx Alcohol Use: No Hx Substance Use: No Preferred Language: Zambian Communication Ability: Effective Visual Impairment: No Limitations Gift Shop Manager Required: No Beliefs That Will Affect Care: None marital status: Single Current Living Situation: Other Current Living Situation Comment: at home with girlfriend Other Information That Helps Us Care for You: No Feels Safe at Home: Yes Assistive Devices: None Allergies Allergies Allergy/AdvReac Type Severity Reaction Status Date / Time hydralazine AdvReac Intermediate Joint Verified 12/12/21 16:13 stiffness Home Meds Home Medications Medication Instructions Recorded Confirmed carvedilol 25 mg tablet (Coreg) 50 mg PO BID 07/10/18 12/12/21 cholecalciferol (vitamin D3) 25 1,000 unit PO QAM 07/10/18 12/12/21 mcg (1,000 unit) capsule (Vitamin D3) nitroglycerin 0.4 mg sublingual 1 dose SUBLINGUAL DIRECTED PRN 07/10/18 12/12/21 tablet (Nitrostat) loratadine 10 mg tablet 10 mg PO QAM PRN 01/02/19 12/12/21 omega 6-dlv-wwo-fish oil 1,000 mg 1 cap PO QAM 01/02/19 12/12/21 (120 mg-180 mg) capsule (Fish Oil) acetaminophen 500 mg tablet 1,000 mg PO Q8H PRN 01/18/19 12/12/21 (Tylenol Extra Strength) sucroferric oxyhydroxide 500 mg 1,000 mg PO TIDM 06/18/20 12/12/21 chewable tablet (Velphoro) calcitriol 0.25 mcg capsule 0.25 mcg PO 3XWK 06/15/21 12/12/21 amlodipine 5 mg tablet (Norvasc) 10 mg PO QAM 11/03/21 12/12/21 aspirin 81 mg tablet,delayed 81 mg PO DAILY 11/03/21 12/12/21 release (Aspirin Low Dose) ezetimibe 10 mg tablet 10 mg PO Q OTHER DAY 11/03/21 12/12/21 rosuvastatin 10 mg tablet 10 mg PO DAILY 12/12/21 12/12/21 Results & Data (ED) Vital Signs Vital Signs - 24 hr 12/12/21 14:56 12/12/21 15:18 12/12/21 15:29 Temperature 37.0 C Temperature Source Skin Pulse Rate 82 80 Pulse Rhythm Regular Respiratory Rate 20 14 Respiratory Effort / Characteristics Non-Labored Spontaneous Respiratory Depth Normal Respiratory Pattern Regular Blood Pressure 184/96 H Blood Pressure Mean 125 Pulse Oximetry 97 97 Oxygen Delivery Method Room Air Room Air Room Air Sepsis Recent Fever Within 48 Hours No Sepsis New/Unexplained Change in Mental Status N/A Sepsis Action Taken by Nursing No Action Required Home Medications Current Medication List: was personally reviewed by me Laboratory Data Attestation: I reviewed the patient's lab results. Result diagrams: 12/12/21 15:10 12/12/21 15:10 Lab Results 12/12/21 12/12/21 12/12/21 Range/Units 15:10 15:10 15:10 WBC 4.20 L (4.8-10.8) K/uL RBC 2.92 L (4.7-6.1) M/uL Hgb 9.1 L (14.0-18.0) g/dL Hct 29.2 L (42-52) % MCV 100.0 (80-100) fL MCH 31.2 (25-34) pg MCHC 31.2 L (32-36) g/dL RDW Std Deviation 62.4 H (36.4-46.3) fL RDW Coeff of Adam 17.4 H (11.5-14.5) % Plt Count 136 (130-400) K/uL MPV 8.8 (7.4-10.4) fL Immature Gran % (Auto) 0.2 % Neut % (Auto) 56.0 % Lymph % (Auto) 20.7 % Ripley % (Auto) 17.6 % Eos % (Auto) 4.5 % Baso % (Auto) 1.0 % Neut # (Auto) 2.35 (1.4-6.5) K/uL Lymph # (Auto) 0.87 L (1.2-3.4) K/uL Ripley # (Auto) 0.74 H (0.11-0.59) K/uL Eos # (Auto) 0.19 (0-0.5) K/uL Baso # (Auto) 0.04 (0-0.2) K/uL Immature Gran # (Auto) 0.01 (0.00-0.02) K/uL Sodium 137 (136-145) mmol/L Potassium 4.0 (3.5-5.1) mmol/L Chloride 95 L (98-107) mmol/L Carbon Dioxide 34 H (21-32) mmol/L Anion Gap 8 (3-11) BUN 23 (6-23) mg/dl Creatinine 5.26 H* (0.6-1.4) mg/dl Est Cr Clr Drug Dosing 19.2 ml/min Est GFR ( Amer) 12.9 ml/min Est GFR (Non-Af Amer) 11.1 ml/min BUN/Creatinine Ratio 4.4 L (10-20) Glucose 88 (70-99(Fasting)) mg/dl Calcium 9.1 (8.5-10.1) mg/dl Total Bilirubin 0.5 (0.2-1.0) mg/dl AST 8 L (13-39) U/L ALT 6 L (7-52) U/L Alkaline Phosphatase 125 H (34-104) U/L Troponin I 0.03 (0-0.04) ng/ml B-Natriuretic Peptide 1407 H (0-100) pg/ml Total Protein 7.0 (6.0-8.3) gm/dl Albumin 4.2 (3.4-5.0) gm/dl Globulin 2.8 (2.5-4.0) gm/dl Albumin/Globulin Ratio 1.5 (0.9-2) Lipase 24 (11-82) U/L SARS-CoV-2, RNA, NAAT (NEGATIVE) 12/12/21 Range/Units 15:30 WBC (4.8-10.8) K/uL RBC (4.7-6.1) M/uL Hgb (14.0-18.0) g/dL Hct (42-52) % MCV (80-100) fL MCH (25-34) pg MCHC (32-36) g/dL RDW Std Deviation (36.4-46.3) fL RDW Coeff of Adam (11.5-14.5) % Plt Count (130-400) K/uL MPV (7.4-10.4) fL Immature Gran % (Auto) % Neut % (Auto) % Lymph % (Auto) % Ripley % (Auto) % Eos % (Auto) % Baso % (Auto) % Neut # (Auto) (1.4-6.5) K/uL Lymph # (Auto) (1.2-3.4) K/uL Ripley # (Auto) (0.11-0.59) K/uL Eos # (Auto) (0-0.5) K/uL Baso # (Auto) (0-0.2) K/uL Immature Gran # (Auto) (0.00-0.02) K/uL Sodium (136-145) mmol/L Potassium (3.5-5.1) mmol/L Chloride (98-107) mmol/L Carbon Dioxide (21-32) mmol/L Anion Gap (3-11) BUN (6-23) mg/dl Creatinine (0.6-1.4) mg/dl Est Cr Clr Drug Dosing ml/min Est GFR ( Amer) ml/min Est GFR (Non-Af Amer) ml/min BUN/Creatinine Ratio (10-20) Glucose (70-99(Fasting)) mg/dl Calcium (8.5-10.1) mg/dl Total Bilirubin (0.2-1.0) mg/dl AST (13-39) U/L ALT (7-52) U/L Alkaline Phosphatase (34-104) U/L Troponin I (0-0.04) ng/ml B-Natriuretic Peptide (0-100) pg/ml Total Protein (6.0-8.3) gm/dl Albumin (3.4-5.0) gm/dl Globulin (2.5-4.0) gm/dl Albumin/Globulin Ratio (0.9-2) Lipase (11-82) U/L SARS-CoV-2, RNA, NAAT NEGATIVE (NEGATIVE) Administered Medications Carvedilol (Carvedilol 25 Mg Tab) [address] Stop: 01/11/22 20:59 Last Admin: 12/12/21 20:09 Dose: 50 mg Documented by: [id number] Heparin Sodium (Porcine) (Heparin Sod 5,000 Unit/0.5 Ml Vial) 5,[address] Stop: 01/11/22 21:59 Last Admin: 12/12/21 20:09 Dose: 5,000 units Documented by: [id number] Discontinued Medications Aspirin (Aspirin Chew 324 Mg) 243 mg PO NOW STA Stop: 12/12/21 15:18 Last Admin: 12/12/21 15:25 Dose: 243 mg Documented by: [id number] Nitroglycerin (Nitroglycerin 2% Ointment 30gm Tube) 0.5 inch EXT NOW ONE Stop: 12/12/21 17:12 Last Admin: 12/12/21 17:29 Dose: 0.5 inch Documented by: [id number] Imaging Data Radiologist's Impression: Chest X-Ray 12/12/21 15:17 XR chest 1V portable HISTORY: Atypical Chest Pain COMPARISON: Chest 07/08/2021. FINDINGS: No pneumothorax. The heart is mildly enlarged. There are poststernotomy changes. Right greater than left interstitial/vascular thickening suggestive developing pulmonary edema. There is a hazy appearance of the right medial lung base which may represent layering pleural fluid or developing airspace opacity. IMPRESSION: 1. Cardiomegaly with developing pulmonary edema. 2. Hazy appearance to the right medial lung base. This could represent layering pleural fluid from a small pleural effusion or developing pneumonia. ACT 112: Negative or not required by law. Electronically signed by: Catracho Dodson M.D. 12/12/2021 4:25 PM Discharge Plan Visit Data Chief Complaint: Chest Pain Stated Complaint: sob, chest pain, took nitro not helping, on dialys ED Provider: Kiran Magaña Discharge Problem: Volume overload, Anemia of chronic disease, Chest pain, ESRD (end stage renal disease) on dialysis, Acute dyspnea Patient Disposition: Admitted As Inpatient Discharge Instructions Interventions: ED Discharge Assessment Last Done: 12/12/21 18:29
[2021-12-12] MEDS ORDERED: NITROGLYCERIN SL 0.4 MG/TAB TAB SL PRN ×3 (15:17→18:59)
[2021-12-12] MEDS ORDERED: ASPIRIN CHEW 324 MG PO STA (15:17)
[2021-12-12 15:23] LABS: Basophils # (auto) 0.04 K/uL (0-0.2); Eosinophils # (auto) 0.19 K/uL (0-0.5); Eosinophils % (auto) 4.5 %; Hematocrit (blood only) 29.2 % (42-52); Hemoglobin 9.1 g/dL (14.0-18.0); Immature Granulocytes # (auto) 0.01 K/uL (0.00-0.02); Immature Granulocytes % (auto) 0.2 %; Lymphocytes # (auto) 0.87 K/uL (1.2-3.4); Lymphocytes % (auto) 20.7 %; Mean Corpuscular Hemoglobin 31.2 pg (25-34); Mean Corpuscular Hgb Conc 31.2 g/dL (32-36); Mean Platelet Volume 8.8 fL (7.4-10.4); Monocytes # (auto) 0.74 K/uL (0.11-0.59); Monocytes % (auto) 17.6 %; Neutrophils # (auto) 2.35 K/uL (1.4-6.5); Platelet Count 136 K/uL (130-400); RDW Coefficient of Variation 17.4 % (11.5-14.5); RDW Standard Deviation 62.4 fL (36.4-46.3); Red Blood Count 2.92 M/uL (4.7-6.1)
[2021-12-12 15:44] LABS: Troponin I 0.03 ng/ml (0-0.04)
[2021-12-12 15:48] LABS: Albumin Globulin Ratio 1.5 (0.9-2); Albumin Level 4.2 gm/dl (3.4-5.0); BUN Creatinine Ratio 4.4 (10-20); Bilirubin,Total 0.5 mg/dl (0.2-1.0); Calcium 9.1 mg/dl (8.5-10.1); Creatinine Clr Calc Pharmacy 19.2 ml/min; Est GFR (African American) 12.9 ml/min; Est GFR (Non-African American) 11.1 ml/min; Globulin 2.8 gm/dl (2.5-4.0)
--- NOTE | 2021-12-12 16:27 | XRay Report ---
XR chest 1V portable HISTORY: Atypical Chest Pain COMPARISON: Chest 07/08/2021. FINDINGS: No pneumothorax. The heart is mildly enlarged. There are poststernotomy changes. Right grea ter than left interstitial/vascular thickening suggestive developing pulmonary edema. There is a hazy appearance of the right medial lung base which may represent layering pleural fluid or developing ai rspace opacity. IMPRESSION: 1. Cardiomegaly with developing pulmonary edema. 2. Hazy appearance to the right medial lung base. This could represent layering pleural fluid from a small pleural effusion or developing pneumonia. ACT 112: Negative or not required by law. Electronically signed by: Catracho Dodson M.D. 12/12/2021 4:25 PM
[2021-12-12] MEDS ORDERED: NITROGLYCERIN 2% OINTMENT 30GM TUBE EXT ONE (17:11)
--- NOTE | 2021-12-12 18:48 | History and Physical Report ---
DATE OF ADMISSION: 12/12/2021. CHIEF COMPLAINT: Chest pain, shortness of breath. HISTORY OF PRESENT ILLNESS: A 56-year-old male with past medical history significant for chronic polycystic kidney disease, status post bilateral nephrectomy done on 11/18/2021, end-stage renal disease on hemodialysis, history of coronary artery disease, status post CABG, hyperlipidemia, secondary hyperparathyroidism, superficial phlebitis, hypertension, obesity, inflammatory arthritis, anemia of chronic kidney disease, history of thrombocytopenia, history of lupus, history of gastric ulcer, history of syncope, history of COVID, presents with chest pain and shortness of breath. The patient states yesterday evening he felt left chest discomfort, dull aching pain, moderate in severity, no radiatio, took nitro which helped. He was also getting shortness of breath for the last 2 days. Last night he could not sleep because shortness of breath. Had dialysis today , but still has some shortness of breath . After dialysis again had chest pain dull aching and nitro helped with the pain .Because of ongoing symptoms, he came to the ER. His EKG showed some T-wave inversions in lateral leads. His troponin is unremarkable. Blood pressure is somewhat running on higher side. He is saturating okay on room air. Chest x- ray, possible pulmonary congestion. The patient says currently chest pain free. He says he has some cough. Denies any fever or chills. He has had some headache, after nitro, that got resolved. No blurred visions, no earache, no runny nose, no sore throat. Appetite is okay. No nausea, no vomiting, no abdominal pain. Normal bowel movements, no blood in stool or black stool. He does not make any urine since his nephrectomy. He has some swelling in the legs. Ambulates without any support. ALLERGIES: HYDRALAZINE. PAST MEDICAL HISTORY: As mentioned above. PAST SURGICAL HISTORY: CABG, carpal tunnel surgery, left heart catheterization, colonoscopies, EGDs, bilateral partial nephrectomies, tonsillectomy, adenoidectomy, inguinal hernia repair on the right side. MEDICATIONS: Currently the patient is on Tylenol 1000 mg p.o. q. 8 hours p.r.n., Norvasc 10 mg p.o. a.m., aspirin 81 mg p.o. daily, calcitriol 0.25 mcg p.o. 3 times a week, Coreg 50 mg p.o. b.i.d., vitamin D 1000 units p.o. q.a.m., ezetimibe 10mg mg every other day, loratadine 10 mg p.o. a.m. p.r.n., Nitrostat p.r.n., omega fish oil 1 capsule a.m., Crestor 10 mg p.o. daily, Velphoro 1000 mg p.o. t.i.d. with meals. FAMILY HISTORY: Significant for father has arthritis, diabetes, hypertension; mother has thyroid disorder, hyperlipidemia, hypertension, arthritis. SOCIAL HISTORY: No smoking, no alcohol, no drug use. REVIEW OF SYSTEMS: As per HPI. Rest of the review of systems is negative. PHYSICAL EXAMINATION: GENERAL: The patient is obese, not in acute distress. VITAL SIGNS: Temperature 37, pulse 80, respiratory rate 14, blood pressure 184/96, oxygen 97% on room air. HEENT: Pupils are equal and reactive to light. NECK: No JVD. No neck masses. CARDIOVASCULAR: S1 and S2 heard. Regular rate and rhythm. No murmur, no gallop. RESPIRATORY: Normal AP diameter. No accessory muscle use. No wheezing, no crackles. ABDOMEN: Soft, bowel sounds present, nontender, no distention. CENTRAL NERVOUS SYSTEM: Cranial nerves II-XII grossly intact, nonfocal. EXTREMITIES: Mild pedal edema, no erythema seen. LABORATORY DATA: WBC 4.2, hemoglobin 9.1, hematocrit 29.2, platelets 136. Sodium 137, potassium 4, chloride 95, bicarbonate 34, BUN 23, creatinine 5.2, serum glucose 88, calcium 9.1, total bilirubin 0.5, AST 8, ALT 6, alkaline phosphatase 124. Troponin-I 0.03. BNP 1400. Lipase 24. SARS-CoV-2 RNA negative. IMAGING DATA: Chest x-ray: Cardiomegaly with developing pulmonary edema,Hazy appearance to the right medial lung base. This could represent layering pleural fluid from a small pleural effusion or developing pneumonia. EKG: Normal sinus rhythm at a rate of 86, incomplete right bundle-branch block, T-wave changes seen in the lateral leads. ASSESSMENT AND PLAN: The patient is a 56-year-old male presents with chest pain and shortness of breath. 1. Chest pain: Rule out acute coronary syndrome. The patient had stress test in 07/2021 which was indterminate, history of coronary artery bypass grafting. Currently pain relieved. Continue with the nitroglycerin paste. Cardiology notified by the ER to follow serial enzymes, repeat EKG in a.m. and echocardiogram in a.m. and keep him n.p.o. If the chest pain comes back or his troponins are elevated, we will start him on IV heparin. Continue his home medication of rosuvastatin, aspirin and Coreg. Monitor closely in tele floor. 2. Shortness of breath, probably from volume overload. The patient had dialysis today.. Notified Nephrology and recommeds to avoid iv fluids and fluid restriction of 1200ml/day. Currently patient is npo for chest pain. 3. Endstage renal disease, on hemodialysis. Nephrology consulted as above. Continue his home medicine of calcitriol. 4. Hyperlipidemia, on statin. 5. Hypertension, on Coreg and amlodipine. Currently we will place him on nitroglycerin paste. Monitor the blood pressure. 6. Chronic polycystic kidney disease status post bilateral nephrectomy done on 11/18/2021. 7. Anemia of chronic kidney disease. Hemoglobin is 9.1 this seems to be stable. 8. History of thrombocytopenia, borderline low in the previous admission, currently 136. 9. Deep venous thrombosis prophylaxis: Placed on heparin subcutaneous. DISPOSITION: Closely monitor in the tele floor. Level 1 full code. Expect to discharge home and follow with family doctor. Job ID: [id number] MTDD
[2021-12-12] MEDS ORDERED: ACETAMINOPHEN 325 MG TAB PO PRN (18:59)
[2021-12-12] MEDS ORDERED: LORATADINE 10 MG TAB PO PRN (18:59)
[2021-12-12] MEDS ORDERED: ONDANSETRON INJ 2 MG/ML 2 ML VIAL IV PRN (18:59)
[2021-12-12] MEDS: HEPARIN SOD 5,000 UNIT/0.5 ML VIAL SQ SCH (20:09)
[2021-12-12] MEDS: carvediloL 25 MG TAB PO SCH (20:09)
[2021-12-12] MEDS: MELATONIN 3 MG TAB PO PRN (21:42)
[2021-12-12] MEDS ORDERED: XOPENEX/ATROVENT 1.25mg/0.5MG NEB COMBO NEB STA (21:53)
[2021-12-12] MEDS ORDERED: IPRATROPIUM BROMIDE NEB SOLN 0.02% 2.5 ML VIAL INH STA (21:56)
[2021-12-12] MEDS ORDERED: LEVALBUTEROL 1.25MG/0.5ML NEB INH STA (21:57)
[2021-12-12] MEDS: NITROGLYCERIN 2% OINTMENT 30GM TUBE EXT SCH (23:10)
[2021-12-13] MEDS ORDERED: NITROGLYCERIN SL 0.4 MG/TAB TAB SL STA (00:32)
[2021-12-13] MEDS ORDERED: HYDROmorphone INJ 0.5 MG/0.5 ML SYR IV PRN (00:33)
[2021-12-13] MEDS ORDERED: traMADol HCL 50 MG TABLET PO PRN (00:33)
[2021-12-13] MEDS ORDERED: LORazepam 2 MG/1 ML VIAL IV PRN (00:36)
[2021-12-13 01:08] LABS: Basophils # (auto) 0.04 K/uL (0-0.2); Basophils % (auto) 1.1 %; Eosinophils # (auto) 0.19 K/uL (0-0.5); Eosinophils % (auto) 5.4 %; Hematocrit (blood only) 25.7 % (42-52); Hemoglobin 8.2 g/dL (14.0-18.0); Lymphocytes % (auto) 25.4 %; Mean Corpuscular Hemoglobin 31.5 pg (25-34); Mean Corpuscular Hgb Conc 31.9 g/dL (32-36); Mean Corpuscular Volume 98.8 fL (80-100); Mean Platelet Volume 8.4 fL (7.4-10.4); Monocytes # (auto) 0.51 K/uL (0.11-0.59); Monocytes % (auto) 14.4 %; Neutrophils # (auto) 1.91 K/uL (1.4-6.5); Neutrophils % (auto) 53.7 %; Platelet Count 129 K/uL (130-400); RDW Coefficient of Variation 17.3 % (11.5-14.5); RDW Standard Deviation 61.2 fL (36.4-46.3); White Blood Count 3.55 K/uL (4.8-10.8)
[2021-12-13 01:18] LABS: Partial Thromboplastin Time 28.7 Seconds (21.0-31.0)
[2021-12-13] MEDS: amLODIPine BESYLATE 5 MG TAB PO SCH (01:21)
[2021-12-13 01:26] LABS: Polychromasia 1+
[2021-12-13 01:37] LABS: Troponin I 0.03 ng/ml (0-0.04)
[2021-12-13 03:28] LABS: BUN Creatinine Ratio 4.3 (10-20); Calcium 8.9 mg/dl (8.5-10.1); Est GFR (African American) 10.4 ml/min; Magnesium 2.1 mg/dl (1.7-2.4); Potassium 3.9 mmol/L (3.5-5.1)
[2021-12-13] MEDS ORDERED: hydrALAZINE HCL 20 MG/ML VIAL IV STA ×2 (03:32→03:59)
[2021-12-13] MEDS: NITROGLYCERIN 2% OINTMENT 30GM TUBE EXT SCH ×4 (04:27→23:52)
[2021-12-13] MEDS: HEPARIN SOD 5,000 UNIT/0.5 ML VIAL SQ SCH ×2 (05:53→20:55)
[2021-12-13] MEDS: CALCIUM ACETATE 667 MG CAP/TAB PO SCH ×3 (08:24→17:37)
[2021-12-13] MEDS: ROSUVASTATIN CALCIUM 10 MG TAB PO SCH (08:25)
[2021-12-13] MEDS: ASPIRIN 81 MG ECTAB PO SCH (08:25)
[2021-12-13] MEDS: carvediloL 25 MG TAB PO SCH ×2 (08:25→20:55)
[2021-12-13] MEDS: CHOLECALCIFEROL 1,000 UNITS 25 MCG TAB PO SCH (08:25)
[2021-12-13] MEDS ORDERED: EZETIMIBE 10 MG TABLET PO SCH (09:00)
[2021-12-13] MEDS ORDERED: amLODIPine BESYLATE 5 MG TAB PO SCH (09:00)
--- NOTE | 2021-12-13 09:17 | Electrocardiogram Report ---
Test Reason : Blood Pressure : / mmHG Vent. Rate : 086 BPM Atrial Rate : 086 BPM P-R Int : 170 ms QRS Dur : 112 ms QT Int : 396 ms P-R-T Axes : 044 000 092 degrees QTc Int : 473 ms Normal sinus rhythm Left atrial enlargement Incomplete right bundle branch block Nonspecific ST and T wave abnormality Anterolateral leads Prolonged QT Abnormal ECG When compared with ECG of 15-JUN-2021 10:13, T wave inversion more evident in Anterior leads Confirmed by Evelio Eldridge ([id number]) on 12/13/2021 9:16:58 AM Referred By: REFERRED SELF Confirmed By:Evelio Eldridge
--- NOTE | 2021-12-13 09:18 | Electrocardiogram Report ---
Test Reason : Blood Pressure : / mmHG Vent. Rate : 082 BPM Atrial Rate : 082 BPM P-R Int : 166 ms QRS Dur : 112 ms QT Int : 424 ms P-R-T Axes : 041 -08 090 degrees QTc Int : 495 ms Normal sinus rhythm Possible Left atrial enlargement Nonspecific ST and T wave abnormality Anterolateral leads Prolonged QT Abnormal ECG When compared with ECG of 12-DEC-2021 14:52, Incomplete right bundle branch block is no longer Present Otherwise no significant change Confirmed by Evelio Eldridge ([id number]) on 12/13/2021 9:17:35 AM Referred By: REFERRED SELF Confirmed By:Evelio Eldridge
--- NOTE | 2021-12-13 10:32 | Cardiology Consultation ---
Date of Consultation December 13, 2021 Assessment & Plan (1) Volume overload: (2) ESRD (end stage renal disease) on dialysis: (3) History of polycystic kidney disease: (4) Hx of CABG: (5) Angina concurrent with and due to arteriosclerosis of coronary artery: The patient has chronic but stable angina. I would allow him to utilize sublingual nitroglycerin on a as needed basis as he does as an outpatient. I do not believe any additional cardiac testing is indicated. I believe that his s ymptoms of shortness of breath, orthopnea para nocturnal dyspnea are due to volume overload and his dialysis is being adjusted. His problems seem to have started after his surgery for removal of his polycystic kidneys. He is now totally and uric and not making any urine at all. This may be contributing to the volume overload. History of Present Illness Attending Physician: Jazmin Bunch MD History of Present Illness This is a 56-year-old male patient who underwent coronary artery bypass surgery in 2008. He has been followed by Dr. Augustine for years following that surgery. He has a history of chronic stable angina for which he takes 1 sublingual nitro glycerin about once a week for pain relief. He has a history of polycystic kidney disease and started dialysis approximately 3 years ago. He was having problems with his kidneys due to what he describes as bleeding. He therefore had his kidneys removed several weeks ago. Following that surgery, obviously he makes no urine. Patient states that he has been having problems with shortness of breath, orthopnea and para nocturnal dyspnea probably consistent with volume overload. Adjustments are being made to his dialysis. The patient was admitted to the hospital mainly due to the shortness of breath and orthopnea. He also had a couple episodes of chest pain relieved promptly with sublingual nitroglycerin which is not new to him. His cardiac markers are negative. EKG shows nonspecific ST and T wave changes which are not new. Echocardiogram showed preserved left ventricular systolic function and no wall motion abnormalities that would suggest ischemic heart disease. Allergies Allergy/AdvReac Type Severity Reaction Status Date / Time hydralazine AdvReac Intermediate Joint Verified 12/12/21 16:13 stiffness Home Medications Medication Instructions Recorded Confirmed Type carvedilol 25 mg tablet (Coreg) 50 mg PO BID 07/10/18 12/12/21 History cholecalciferol (vitamin D3) 25 1,000 unit PO QAM 07/10/18 12/12/21 History mcg (1,000 unit) capsule (Vitamin D3) nitroglycerin 0.4 mg sublingual 1 dose SUBLINGUAL DIRECTED PRN 07/10/18 12/12/21 History tablet (Nitrostat) loratadine 10 mg tablet 10 mg PO QAM PRN 01/02/19 12/12/21 History omega [id number]-fish oil 1,000 mg 1 cap PO QAM 01/02/19 12/12/21 History (120 mg-180 mg) capsule (Fish Oil) acetaminophen 500 mg tablet 1,000 mg PO Q8H PRN 01/18/19 12/12/21 History (Tylenol Extra Strength) sucroferric oxyhydroxide 500 mg 1,000 mg PO TIDM 06/18/20 12/12/21 History chewable tablet (Velphoro) calcitriol 0.25 mcg capsule 0.25 mcg PO 3XWK 06/15/21 12/12/21 History amlodipine 5 mg tablet (Norvasc) 10 mg PO QAM 11/03/21 12/12/21 History aspirin 81 mg tablet,delayed 81 mg PO DAILY 11/03/21 12/12/21 History release (Aspirin Low Dose) ezetimibe 10 mg tablet 10 mg PO Q OTHER DAY 11/03/21 12/12/21 History rosuvastatin 10 mg tablet 10 mg PO DAILY 12/12/21 12/12/21 History Patient History Medical History Anemia of chronic disease No known hx of blood transfusions per patient; hgb stable in the 9s Chronic kidney disease, stage V Deep vein thrombosis LLE DVT (2016), no issues since Edema of scrotum Hemodialysis patient Hemorrhage of cyst of [place] History of COVID-19 Dx 10/2020 > symptoms at time of fever > resolved History of gastric ulcer Per records History of myocardial infarction 2008 History of polycystic kidney disease Hyperlipidemia Inflammatory arthritis Obesity Surgical History H/O eye surgery As an for strabismus History of cardiac cath S/P CABG X 3 (2008)= CASAREZ-LAD, SVG-OM2, SVG-OM3 2016, 07/2020 > no stents History of carpal tunnel release Left History of colonoscopy History of esophagogastroduodenoscopy (EGD) History of herniorrhaphy Inguinal hernia repair History of tonsillectomy S/P arteriovenous (AV) fistula creation Family History Father Family history of diabetes mellitus Social History Smoking Status: Never smoker Second Hand Exposure: No; Do You Dip or Chew Tobacco: No; Hx Alcohol Use: No Hx Substance Use: No Preferred Language: [place]an Communication Ability: Effective Visual Impairment: No Limitations Telephone Maintainer Required: No Beliefs That Will Affect Care: None marital status: Single Current Living Situation: Other Current Living Situation Comment: at home with girlfriend Other Information That Helps Us Care for You: No Feels Safe at Home: Yes Assistive Devices: None Review of Systems Review of Systems: Review of Systems: See HPI for pertinent positives. All other 10 point review of systems are negative. Physical Exam Physical Exam: General: no acute distress and stated age Head: normocephalic, no masses, lesions, tenderness or abnormalities Eyes: conjunctiva are pink and non-injected, sclera clear Neck: supple, no adenopathy, no bruits, normal jugular venous pulse, no hepatojugular reflux Chest: normal shape and normal respiratory effort Lungs: clear to auscultation and percussion Cardiac Exam: - regular rate & rhythm, no murmurs gallops or rubs - normal S1, normal S2 Pulses: 2(+) throughout Abdomen: abdomen soft, non-tender, no abnormal masses and no hepatosplenomegaly Musculoskeletal: no gait disturbance, no joint inflammation, no deforming arthritis Extremities: no edema and no cyanosis Neuro: grossly normal exam Results & Data ([facility]) Vital Signs (Past 12 Hours) Vital Signs Temp Pulse Pulse Resp BP Pulse Ox 12/13/21 08:48 84 12/13/21 07:26 37.0 C 83 19 167/88 H 96 12/13/21 05:58 161/89 H 12/13/21 03:47 36.5 C 82 12 169/95 H 95 12/13/21 03:05 82 12/13/21 01:19 84 194/107 H 12/13/21 00:45 83 20 170/92 H 95 12/13/21 00:15 72 18 172/95 H 91 12/12/21 23:15 36.8 C 78 12 161/92 H 90 12/12/21 22:33 80 14 92 Laboratory Results Laboratory Results - last 24 hr 12/12/21 12/12/21 12/12/21 15:10 15:10 15:10 WBC 4.20 L RBC 2.92 L Hgb 9.1 L Hct 29.2 L MCV 100.0 MCH 31.2 MCHC 31.2 L RDW Std Deviation 62.4 H RDW Coeff of Adam 17.4 H Plt Count 136 MPV 8.8 Immature Gran % (Auto) 0.2 Neut % (Auto) 56.0 Lymph % (Auto) 20.7 [place] % (Auto) 17.6 Eos % (Auto) 4.5 Baso % (Auto) 1.0 Neut # (Auto) 2.35 Lymph # (Auto) 0.87 L [place] # (Auto) 0.74 H Eos # (Auto) 0.19 Baso # (Auto) 0.04 Immature Gran # (Auto) 0.01 Polychromasia APTT PTT Ratio Sodium 137 Potassium 4.0 Chloride 95 L Carbon Dioxide 34 H Anion Gap 8 BUN 23 Creatinine 5.26 H* Est Cr Clr Drug Dosing 19.2 Est GFR ( Amer) 12.9 Est GFR (Non-Af Amer) 11.1 BUN/Creatinine Ratio 4.4 L Glucose 88 Calcium 9.1 Magnesium Total Bilirubin 0.5 AST 8 L ALT 6 L Alkaline Phosphatase 125 H Troponin I 0.03 B-Natriuretic Peptide 1407 H Total Protein 7.0 Albumin 4.2 Globulin 2.8 Albumin/Globulin Ratio 1.5 Lipase 24 Nasal Screen MRSA (PCR) Hepatitis C Ab Screen SARS-CoV-2, RNA, NAAT 12/12/21 12/12/21 12/13/21 15:30 20:46 00:56 WBC 3.55 L RBC 2.60 L Hgb 8.2 L Hct 25.7 L MCV 98.8 MCH 31.5 MCHC 31.9 L RDW Std Deviation 61.2 H RDW Coeff of Adam 17.3 H Plt Count 129 L MPV 8.4 Immature Gran % (Auto) 0.0 Neut % (Auto) 53.7 Lymph % (Auto) 25.4 [place] % (Auto) 14.4 Eos % (Auto) 5.4 Baso % (Auto) 1.1 Neut # (Auto) 1.91 Lymph # (Auto) 0.90 L [place] # (Auto) 0.51 Eos # (Auto) 0.19 Baso # (Auto) 0.04 Immature Gran # (Auto) 0.00 Polychromasia 1+ APTT PTT Ratio Sodium Potassium Chloride Carbon Dioxide Anion Gap BUN Creatinine Est Cr Clr Drug Dosing Est GFR ( Amer) Est GFR (Non-Af Amer) BUN/Creatinine Ratio Glucose Calcium Magnesium Total Bilirubin AST ALT Alkaline Phosphatase Troponin I 0.03 B-Natriuretic Peptide Total Protein Albumin Globulin Albumin/Globulin Ratio Lipase Nasal Screen MRSA (PCR) Hepatitis C Ab Screen SARS-CoV-2, RNA, NAAT NEGATIVE 12/13/21 12/13/21 12/13/21 00:56 00:56 04:25 WBC RBC Hgb Hct MCV MCH MCHC RDW Std Deviation RDW Coeff of Adam Plt Count MPV Immature Gran % (Auto) Neut % (Auto) Lymph % (Auto) [place] % (Auto) Eos % (Auto) Baso % (Auto) Neut # (Auto) Lymph # (Auto) [place] # (Auto) Eos # (Auto) Baso # (Auto) Immature Gran # (Auto) Polychromasia APTT 28.7 PTT Ratio 1.0 Sodium 137 Potassium 3.9 Chloride 96 L Carbon Dioxide 32 Anion Gap 9 BUN 27 H Creatinine 6.27 H* D Est Cr Clr Drug Dosing 16.0 Est GFR ( Amer) 10.4 Est GFR (Non-Af Amer) 9.0 BUN/Creatinine Ratio 4.3 L Glucose 86 Calcium 8.9 Magnesium 2.1 Total Bilirubin AST ALT Alkaline Phosphatase Troponin I 0.03 B-Natriuretic Peptide Total Protein Albumin Globulin Albumin/Globulin Ratio Lipase Nasal Screen MRSA (PCR) Negative Hepatitis C Ab Screen SARS-CoV-2, RNA, NAAT 12/13/21 05:42 WBC RBC Hgb Hct MCV MCH MCHC RDW Std Deviation RDW Coeff of Adam Plt Count MPV Immature Gran % (Auto) Neut % (Auto) Lymph % (Auto) [place] % (Auto) Eos % (Auto) Baso % (Auto) Neut # (Auto) Lymph # (Auto) [place] # (Auto) Eos # (Auto) Baso # (Auto) Immature Gran # (Auto) Polychromasia APTT PTT Ratio Sodium Potassium Chloride Carbon Dioxide Anion Gap BUN Creatinine Est Cr Clr Drug Dosing Est GFR ( Amer) Est GFR (Non-Af Amer) BUN/Creatinine Ratio Glucose Calcium Magnesium Total Bilirubin AST ALT Alkaline Phosphatase Troponin I B-Natriuretic Peptide Total Protein Albumin Globulin Albumin/Globulin Ratio Lipase Nasal Screen MRSA (PCR) Hepatitis C Ab Screen Pending SARS-CoV-2, RNA, NAAT Medications Administered Current Inpatient Medications Acetaminophen (Acetaminophen 325 Mg Tab) 650 mg PO Q4H PRN PRN Reason: Pain or Fever Stop: 01/11/22 18:58 Last Admin: 12/13/21 00:48 Dose: 650 mg Documented by: Amlodipine Besylate (Amlodipine Besylate 5 Mg Tab) 10 mg PO QAM [facility] Stop: 01/12/22 00:54 Last Admin: 12/13/21 01:21 Dose: 10 mg Documented by: Aspirin (Aspirin 81 Mg Ectab) 81 mg PO DAILY [facility] Stop: 01/12/22 08:59 Last Admin: 12/13/21 08:25 Dose: 81 mg Documented by: Calcitriol (Calcitriol 0.25 Mcg Capsule) 0.25 mcg PO TuThSa@0900 [facility] Stop: 01/14/22 08:59 Calcium Acetate (Calcium Acetate 667 Mg Cap/Tab) 667 mg PO TIDM [facility] Stop: 01/12/22 07:59 Last Admin: 12/13/21 08:24 Dose: 667 mg Documented by: Carvedilol (Carvedilol 25 Mg Tab) 50 mg PO BID [facility] Stop: 01/11/22 20:59 Last Admin: 12/13/21 08:25 Dose: 50 mg Documented by: Ezetimibe (Ezetimibe 10 Mg Tablet) 10 mg PO Q48H [facility] Stop: 01/12/22 08:59 Last Admin: 12/13/21 08:25 Dose: 10 mg Documented by: Heparin Sodium (Porcine) (Heparin Sod 5,000 Unit/0.5 Ml Vial) 5,[address] Stop: 01/11/22 21:59 Last Admin: 12/13/21 05:53 Dose: 5,000 units Documented by: Hydralazine HCl (Hydralazine Hcl 25 Mg Tab) 25 mg PO TID [facility] Stop: 01/12/22 09:59 Hydromorphone HCl (Hydromorphone Inj 0.5 Mg/0.5 Ml Syr) 0.5 mg IV Q3H PRN PRN Reason: Pain Stop: 12/27/21 00:32 Loratadine (Loratadine 10 Mg Tab) 10 mg PO QAM PRN PRN Reason: Allergy Symptoms Stop: 01/11/22 18:58 Lorazepam (Lorazepam 2 Mg/1 Ml Vial) 0.5 mg IV Q4H PRN PRN Reason: Anxiety Stop: 01/12/22 00:35 Melatonin (Melatonin 3 Mg Tab) 3 mg PO HS PRN PRN Reason: Sleep Stop: 01/11/22 20:24 Last Admin: 12/12/21 21:42 Dose: 3 mg Documented by: Nitroglycerin (Nitroglycerin Sl 0.4 Mg/Tab Tab) 0.4 mg SL UD PRN PRN Reason: Chest Pain Stop: 01/11/22 18:58 Nitroglycerin (Nitroglycerin 2% Ointment 30gm Tube) [address] Stop: 01/11/22 22:59 Last Admin: 12/13/21 04:27 Dose: 0.5 inch Documented by: Ondansetron HCl (Ondansetron Inj 2 Mg/Ml 2 Ml Vial) 4 mg IV Q6H PRN PRN Reason: Nausea Stop: 01/11/22 18:58 Rosuvastatin Calcium (Rosuvastatin Calcium 10 Mg Tab) [address] Stop: 01/12/22 08:59 Last Admin: 12/13/21 08:25 Dose: 10 mg Documented by: Tramadol HCl (Tramadol Hcl 50 Mg Tablet) 25 - 50 mg PO Q4H PRN PRN Reason: Pain Stop: 01/12/22 00:32 Vitamin D (Cholecalciferol 1,000 Units 25 Mcg Tab) 1,[address] Stop: 01/12/22 08:59 Last Admin: 12/13/21 08:25 Dose: 1,000 units Documented by: (1) Volume overload Hypervolemia type: other Qualified Code(s): E87.79 - Other fluid overload
[2021-12-13] MEDS: hydrALAZINE HCL 25 MG TAB PO SCH ×3 (10:33→20:56)
--- NOTE | 2021-12-13 12:17 | Hospitalist Progress Note ---
Date of Service December 13, 2021 Assessment & Plan Plan: Chest pain/SOB -likely combination of volume overload and poorly controlled HTN (see below) -trop neg x 2 -TTE results noted Acute on chronic Diastolic CHF -CXR shows vascular congestive, pleural effusion -recent bilateral nephrectomy. Patient reports adherence to low Na, fluid restricted diet. Fluid status is managed by dialysis. Further adjustments per Nephrology ESRD on HD History of polycystic kidney disease -s/p bilateral nephrectomy last month -HD T-Th-Sat, last dialysis yesterday -nephrology consulted for dialysis management Poorly controlled HTN -Need better BP control -continue amlodipine and Coreg. Start hydralazine 25mg TID HLD -continue statin Disposition -from home, plan to discharge home when fluid status is optimized. DVT ppx SQ heparin, change to BID Admission and Anticipated Discharge Date Admission Date: December 12, 2021 Subjective No further chest pain Still on oxygen, reports [facility] Had dialysis yesterday Reports history of bilateral nephrectomy Reports low salt diet and fluid restriction adherence Physical Exam Physical Exam: Appears stated age, no acute distress Respiratory: no accessory muscle use, diminished at bases, no wheezing/rhonchi Cardiovascular: regular rate and rhythm, no murmurs/rubs/gallops Gastrointestinal (Abdomen): soft, non tender Musculoskeletal: No edema, no cyanosis Neurologic: awake, alert, spontaneously moving extremities Results & Data Results & Data ([facility]) Vital Signs (Past 12 Hours) Vital Signs Temp Pulse Pulse Resp BP Pulse Ox 12/13/21 11:51 36.8 C 85 18 148/87 H 97 12/13/21 08:48 84 12/13/21 07:26 37.0 C 83 19 167/88 H 96 12/13/21 05:58 161/89 H 12/13/21 03:47 36.5 C 82 12 169/95 H 95 12/13/21 03:05 82 12/13/21 01:19 84 194/107 H 12/13/21 00:45 83 20 170/92 H 95 12/13/21 00:15 72 18 172/95 H 91 12/12/21 23:15 36.8 C 78 12 161/92 H 90 Laboratory Results Short CBC 12/12/21 12/13/21 Range/Units 15:10 00:56 WBC 4.20 L 3.55 L (4.8-10.8) K/uL Hgb 9.1 L 8.2 L (14.0-18.0) g/dL Hct 29.2 L 25.7 L (42-52) % Plt Count 136 129 L (130-400) K/uL BMP 12/12/21 12/13/21 15:10 00:56 Sodium 137 137 Potassium 4.0 3.9 Chloride 95 L 96 L Carbon Dioxide 34 H 32 BUN 23 27 H Creatinine 5.26 H* 6.27 H* D Glucose 88 86 Calcium 9.1 8.9 Cardiac Enzymes 12/12/21 12/12/21 12/13/21 Range/Units 15:10 20:46 00:56 Troponin I 0.03 0.03 0.03 (0-0.04) ng/ml Liver Function 12/12/21 Range/Units 15:10 Total Bilirubin 0.5 (0.2-1.0) mg/dl AST 8 L (13-39) U/L ALT 6 L (7-52) U/L Alkaline Phosphatase 125 H (34-104) U/L Albumin 4.2 (3.4-5.0) gm/dl Medications Administered Current Inpatient Medications Acetaminophen (Acetaminophen 325 Mg Tab) 650 mg PO Q4H PRN PRN Reason: Pain or Fever Stop: 01/11/22 18:58 Last Admin: 12/13/21 00:48 Dose: 650 mg Documented by: Amlodipine Besylate (Amlodipine Besylate 5 Mg Tab) [address] Stop: 01/12/22 00:54 Last Admin: 12/13/21 01:21 Dose: 10 mg Documented by: Aspirin (Aspirin 81 Mg Ectab) [address] Stop: 01/12/22 08:59 Last Admin: 12/13/21 08:25 Dose: 81 mg Documented by: Calcitriol (Calcitriol 0.25 Mcg Capsule) 0.25 mcg PO TuThSa@09[address] Stop: 01/14/22 08:59 Calcium Acetate (Calcium Acetate 667 Mg Cap/Tab) [address] Stop: 01/12/22 07:59 Last Admin: 12/13/21 08:24 Dose: 667 mg Documented by: Carvedilol (Carvedilol 25 Mg Tab) [address] Stop: 01/11/22 20:59 Last Admin: 12/13/21 08:25 Dose: 50 mg Documented by: Ezetimibe (Ezetimibe 10 Mg Tablet) [address] Stop: 01/12/22 08:59 Last Admin: 12/13/21 08:25 Dose: 10 mg Documented by: Heparin Sodium (Porcine) (Heparin Sod 5,000 Unit/0.5 Ml Vial) 5,[address] Stop: 01/11/22 21:59 Last Admin: 12/13/21 05:53 Dose: 5,000 units Documented by: Hydralazine HCl (Hydralazine Hcl 25 Mg Tab) [address] Stop: 01/12/22 09:59 Last Admin: 12/13/21 10:33 Dose: 25 mg Documented by: Hydromorphone HCl (Hydromorphone Inj 0.5 Mg/0.5 Ml Syr) 0.5 mg IV Q3H PRN PRN Reason: Pain Stop: 12/27/21 00:32 Loratadine (Loratadine 10 Mg Tab) 10 mg PO QAM PRN PRN Reason: Allergy Symptoms Stop: 01/11/22 18:58 Lorazepam (Lorazepam 2 Mg/1 Ml Vial) 0.5 mg IV Q4H PRN PRN Reason: Anxiety Stop: 01/12/22 00:35 Melatonin (Melatonin 3 Mg Tab) 3 mg PO HS PRN PRN Reason: Sleep Stop: 01/11/22 20:24 Last Admin: 12/12/21 21:42 Dose: 3 mg Documented by: Nitroglycerin (Nitroglycerin Sl 0.4 Mg/Tab Tab) 0.4 mg SL UD PRN PRN Reason: Chest Pain Stop: 01/11/22 18:58 Nitroglycerin (Nitroglycerin 2% Ointment 30gm Tube) 0.[address] Stop: 01/11/22 22:59 Last Admin: 12/13/21 10:33 Dose: 0.5 inch Documented by: Ondansetron HCl (Ondansetron Inj 2 Mg/Ml 2 Ml Vial) 4 mg IV Q6H PRN PRN Reason: Nausea Stop: 01/11/22 18:58 Rosuvastatin Calcium (Rosuvastatin Calcium 10 Mg Tab) [address] Stop: 01/12/22 08:59 Last Admin: 12/13/21 08:25 Dose: 10 mg Documented by: Tramadol HCl (Tramadol Hcl 50 Mg Tablet) 25 - 50 mg PO Q4H PRN PRN Reason: Pain Stop: 01/12/22 00:32 Vitamin D (Cholecalciferol 1,000 Units 25 Mcg Tab) 1,[address] [facility] Stop: 01/12/22 08:59 Last Admin: 12/13/21 08:25 Dose: 1,000 units Documented by:
--- NOTE | 2021-12-13 12:52 | Nephrology Consultation ---
Date of Consultation December 13, 2021 Assessment & Plan (1) ESRD (end stage renal disease) on dialysis: (2) Anemia of chronic disease: (3) Chest pain: (4) Volume overload: ESRD secondary to hypertensive nephrosclerosis, on hemodialysis TTS, admitted with volume overload, CP and SOB. CP. Currently slightly volume overloaded with pulmonary congestion but no resp distress. Electrolyte acceptable. no further episode of chest pain since admission. History of bilateral nephrectomy for retroperitoneal bleed with polycystic kidney size on 11/18/2021. As patient became anuric after nephrectomy, volume status became somewhat difficult to manage causing some volume overloaded. Historically he always had high weight gain and chronic volume overload. Had dialysis on Tuesday and according to the patient had 4 L of UF. Probably need to decrease estimated dry weight. --no indication for dialysis today, continue on fluid restriction less than 1.2 L per day, avoid IV fluid, monitor volume status and decide on any need for dialysis tomorrow, otherwise keep on schedule for TTS. will challenge UF. --continue on renal cap and Velphoro with meals --continue on renal diet, dose medications for GFR less than 10 --will give SATINDER with HD Will follow Thank you for the consult. It was a pleasure to see Ed. History of Present Illness Reason for Consultation: ESRD on HD,admitted with CP, SOB, volume overload. Attending Physician: Jazmin Bunch MD History of Present Illness Ed Nancy is a 56 Y O male with ESKD on HD, CAD s/p CABG, HTN admitted to hospital with volume overload, CP and SOB. Nephrology consult requested to manage HD and adjustment of EDW after recent b/l nephrectomy while in hospital. Ed has ESKD on dialysis since November 2018, on dialysis TTS at [facility] unit in [place] via left RC AVF.. Last dialysis was yesterday as his regular schedule and had 4 L UF, completed full treatment. History of polycystic kidney with recent retroperitoneal bleed status post bilateral nephrectomies on 11/18/2021. Presented to ER yesterday with progressive shortness of breath and chest pain. Troponins were unremarkable on serial monitoring. EKG showed T-wave inversion in lateral leads. A 2D echo showed normal EF, no wall motion abnormality or significant valvular abnormality. Chest pain improved with nitroglycerin. Chest x-ray showed bilateral pulmonary congestion. Currently he is using 2 L nasal cannula oxygen and with normal set saturation but reports some shortness of breath without nasal cannula oxygen. He has been anuric since the nephrectomy. Has history of coronary artery disease, status post CABG. Overall feeing better today. Allergies Allergy/AdvReac Type Severity Reaction Status Date / Time hydralazine AdvReac Intermediate Joint Verified 12/12/21 16:13 stiffness Home Medications Medication Instructions Recorded Confirmed Type carvedilol 25 mg tablet (Coreg) 50 mg PO BID 07/10/18 12/12/21 History cholecalciferol (vitamin D3) 25 1,000 unit PO QAM 07/10/18 12/12/21 History mcg (1,000 unit) capsule (Vitamin D3) nitroglycerin 0.4 mg sublingual 1 dose SUBLINGUAL DIRECTED PRN 07/10/18 12/12/21 History tablet (Nitrostat) loratadine 10 mg tablet 10 mg PO QAM PRN 01/02/19 12/12/21 History omega 6-ofr-loz-fish oil 1,000 mg 1 cap PO QAM 01/02/19 12/12/21 History (120 mg-180 mg) capsule (Fish Oil) acetaminophen 500 mg tablet 1,000 mg PO Q8H PRN 01/18/19 12/12/21 History (Tylenol Extra Strength) sucroferric oxyhydroxide 500 mg 1,000 mg PO TIDM 06/18/20 12/12/21 History chewable tablet (Velphoro) calcitriol 0.25 mcg capsule 0.25 mcg PO 3XWK 06/15/21 12/12/21 History amlodipine 5 mg tablet (Norvasc) 10 mg PO QAM 11/03/21 12/12/21 History aspirin 81 mg tablet,delayed 81 mg PO DAILY 11/03/21 12/12/21 History release (Aspirin Low Dose) ezetimibe 10 mg tablet 10 mg PO Q OTHER DAY 11/03/21 12/12/21 History rosuvastatin 10 mg tablet 10 mg PO DAILY 12/12/21 12/12/21 History Patient History Medical History Anemia of chronic disease No known hx of blood transfusions per patient; hgb stable in the 9s Chronic kidney disease, stage V Deep vein thrombosis LLE DVT (2017), no issues since Edema of scrotum Hemodialysis patient Hemorrhage of cyst of [place] kidney History of COVID-19 Dx 10/2020 > symptoms at time of fever > resolved History of gastric ulcer Per records History of myocardial infarction 2008 History of polycystic kidney disease Hyperlipidemia Inflammatory arthritis Obesity Surgical History H/O eye surgery As an for strabismus History of cardiac cath S/P CABG X 3 (2008)= CASAREZ-LAD, SVG-OM2, SVG-OM3 2016, 07/2020 > no stents History of carpal tunnel release Left History of colonoscopy History of esophagogastroduodenoscopy (EGD) History of herniorrhaphy Inguinal hernia repair History of tonsillectomy S/P arteriovenous (AV) fistula creation Family History Father Family history of diabetes mellitus Social History Smoking Status: Never smoker Second Hand Exposure: No; Do You Dip or Chew Tobacco: No; Hx Alcohol Use: No Hx Substance Use: No Preferred Language: Setswana Communication Ability: Effective Visual Impairment: No Limitations Reimbursement Representative Required: No Beliefs That Will Affect Care: None marital status: Single Current Living Situation: Other Current Living Situation Comment: at home with girlfriend Other Information That Helps Us Care for You: No Feels Safe at Home: Yes Assistive Devices: None Physical Exam Constitutional: WD/WN, vitals as above no acute distress Eyes: + anicteric sclerae ENMT: Ears: no hearing impairment Neck: normal visual inspection Respiratory: no respiratory distress and no cough Auscultation: lungs clear to auscultation bilaterally Cardiovascular: Rate/Rhythm: regular rate and regular rhythm Heart Sounds: normal S1 and normal S2 Extremities: no edema Gastrointestinal (Abdomen): Inspection/Auscultation: abdomen normal to inspection and normal bowel sounds Percussion/Palpation: abdomen soft; abdomen nontender Musculoskeletal: Extremities: extremities normal to inspection Skin: no rashes Neurologic: no focal motor deficits and not confused Psychiatric: Orientation: alert and oriented x 3 Affect: euthymic affect Results & Data ([facility]) Vital Signs (Past 12 Hours) Vital Signs Temp Pulse Pulse Resp BP Pulse Ox 12/13/21 11:51 36.8 C 85 18 148/87 H 97 12/13/21 08:48 84 12/13/21 07:26 37.0 C 83 19 167/88 H 96 12/13/21 05:58 161/89 H 12/13/21 03:47 36.5 C 82 12 169/95 H 95 12/13/21 03:05 82 12/13/21 01:19 84 194/107 H 12/13/21 00:45 83 20 170/92 H 95 12/13/21 00:15 72 18 172/95 H 91 PG Care Time/CCT Total # of Minutes Spent Total Time Spent with Patient: Total time spent is greater than 50% in coordination of care (as documented) at patient's floor/unit and/or counseling patient: Coding Level of Care Code 48144 Initial Inpt Care Lvl 3 Diagnoses ESRD (end stage renal disease) on dialysis N18.6; Z99.2 Anemia of chronic disease D63.8 Chest pain R07.9 Chest pain type: unspecified Volume overload E87.79 Hypervolemia type: other (1) Chest pain Chest pain type: unspecified Qualified Code(s): R07.9 - Chest pain, unspecified (2) Volume overload Hypervolemia type: other Qualified Code(s): E87.79 - Other fluid overload
[2021-12-13] MEDS: MELATONIN 3 MG TAB PO PRN (21:03)
[2021-12-14] MEDS: NITROGLYCERIN 2% OINTMENT 30GM TUBE EXT SCH ×2 (04:51→15:12)
[2021-12-14 06:36] LABS: Anion Gap 9 (3-11); Blood Urea Nitrogen 42 mg/dl (6-23); Carbon Dioxide 32 mmol/L (21-32); Chloride 95 mmol/L (98-107); Creatinine Clr Calc Pharmacy 11.9 ml/min; Est GFR (African American) 7.3 ml/min; Est GFR (Non-African American) 6.3 ml/min; Glucose 80 mg/dl (70-99(Fasting)); Phosphorus 4.5 mg/dl (2.5-4.9); Sodium 136 mmol/L (136-145)
[2021-12-14] MEDS: hydrALAZINE HCL 25 MG TAB PO SCH (08:36)
[2021-12-14] MEDS: ASPIRIN 81 MG ECTAB PO SCH (08:36)
[2021-12-14] MEDS: carvediloL 25 MG TAB PO SCH (08:36)
[2021-12-14] MEDS: ROSUVASTATIN CALCIUM 10 MG TAB PO SCH (08:36)
[2021-12-14] MEDS: CHOLECALCIFEROL 1,000 UNITS 25 MCG TAB PO SCH (08:36)
[2021-12-14] MEDS: amLODIPine BESYLATE 5 MG TAB PO SCH (08:36)
[2021-12-14] MEDS: CALCIUM ACETATE 667 MG CAP/TAB PO SCH ×2 (08:37→15:12)
[2021-12-14] MEDS: HEPARIN SOD 5,000 UNIT/0.5 ML VIAL SQ SCH (08:42)
[2021-12-14] MEDS ORDERED: EPOETIN ALFA 20,000 UNITS/ML VIAL IV ONE (09:00)
--- NOTE | 2021-12-14 09:27 | Cardiology Progress Note ---
Date of Service December 14, 2021 Assessment & Plan (1) Volume overload: (2) ESRD (end stage renal disease) on dialysis: (3) History of polycystic kidney disease: (4) Hx of CABG: (5) Angina concurrent with and due to arteriosclerosis of coronary artery: Plan: Volume overload following bilateral nephrectomy for painful polycystic kidney disease. Additional hemodialysis treatment session planned today (typical schedule is , , and in [place]). Severe , longstanding, labile hypertension, hypertensive heart disease. Blood pressure uncontrolled. Recommend discontinuation of hydralazine noting past poor tolerance (drug-induced lupus erythematosus). Add Losartan for additional blood pressure control. Future antihypertensive options may include titration of losartan, resumption of clonidine, or other. Past poor tolerance to multiple trials of long-acting nitrates noted. Premature ischemic heart disease status post coronary bypass grafting in September 2009 (CASAREZ graft the LAD, saphenous vein graft left circumflex), status post July 04, 2020 diagnostic cardiac catheterization with patent grafts, diffuse havasupai vessel disease. Stable [place] [employer] Class II to III angina pectoris. Continue appropriate medical management. Ranexa contraindicated in dialysis patients. Dyslipidemia with history of poor statin tolerance and intolerance to ezetimibe. Consider [facility] Clinic referral, PCSK9 Inhibitor therapy as an outpatient. Admission and Anticipated Discharge Date Admission Date: December 12, 2021 Supervising Physician Co-Signing Physician Notes I have seen and examined the patient. Reviewed the medical record. I discussed the case with Mr. Abraham. I agree with the plan as outlined above. Subjective Patient seen and examined. Chart, medications, and telemetry reviewed. Dialysis treatment today. + Cough, dyspnea, orthopnea. No chest pain, palpitations, dizziness, lightheadedness, near syncope, or edema Telemetry: Sinus in the 70's and 80's. No significant arrhythmias. December 13, 2021 TTE Interpretation Summary ([facility], Dr. Steward): Normal size LV. Normal LV systolic function. EF 55-60%. Normal RV systolic function. Normal LA size. Normal right atrial size. Mild aortic valve sclerosis, without significant stenosis. Trace aortic regurgitation. Mild mitral and tricuspid regurgitation. Review of Systems Review of Systems: No further back pain post bilateral nephrectomy. Complete Review of Systems is otherwise, as stated above, negative, or noncontributory. Physical Exam Physical Exam: General: A&Ox3. NAD. HENT: Normocephalic. Atraumatic. Eyes: PER. Conjunctiva pink, sclera clear. Neck: No carotid bruits. No JVD. Heart: RRR, 74 bpm. No murmur. No rub. PMI is nondisplaced. Lungs: Absent breath sounds at the bases. Clear to auscultation. Abdomen: +BS. Soft. Nontender. No masses or organomegaly. Extremities: Left upper extremity AV fistula. No clubbing. No cyanosis. No lower extremity edema. Limited neurological examination is without focal deficits. Pulses: Posterior tibial pulses were 2/4 bilaterally. Results & Data ([facility]) Vital Signs (Past 12 Hours) Vital Signs Temp Pulse Pulse Resp BP Pulse Ox 12/14/21 07:40 37.0 C 78 19 167/93 H 94 12/14/21 03:27 36.5 C 75 12 162/92 H 93 12/14/21 02:40 76 12/13/21 23:48 36.8 C 75 12 148/89 H 95 Laboratory Results Laboratory Results - last 24 hr 12/14/21 12/14/21 05:34 06:57 Sodium 136 Potassium TNP 4.4 Chloride 95 L Carbon Dioxide 32 Anion Gap 9 BUN 42 H Creatinine 8.40 H* D Est Cr Clr Drug Dosing 11.9 Est GFR ( Amer) 7.3 Est GFR (Non-Af Amer) 6.3 BUN/Creatinine Ratio 5.0 L Glucose 80 Calcium 10.0 Phosphorus 4.5 (1) Volume overload Hypervolemia type: other Qualified Code(s): E87.79 - Other fluid overload
--- NOTE | 2021-12-14 09:39 | Electrocardiogram Report ---
Test Reason : Blood Pressure : / mmHG Vent. Rate : 076 BPM Atrial Rate : 076 BPM P-R Int : 164 ms QRS Dur : 114 ms QT Int : 408 ms P-R-T Axes : 047 -13 099 degrees QTc Int : 459 ms Normal sinus rhythm Nonspecific ST and T wave abnormality Abnormal ECG When compared with ECG of 13-DEC-2021 00:23, No significant change was found Confirmed by Willard Charlton ([id number]) on 12/14/2021 9:39:40 AM Referred By: REFERRED SELF Confirmed By:Willard Charlton
[2021-12-14] MEDS ORDERED: LOSARTAN POTASSIUM 50 MG TAB PO SCH (10:00)
--- NOTE | 2021-12-14 11:01 | Nephrology Progress Note ---
Date of Service December 14, 2021 Assessment & Plan (1) ESRD (end stage renal disease) on dialysis: (2) Anemia of chronic disease: (3) Chest pain: (4) Volume overload: Plan: ESRD secondary to hypertensive nephrosclerosis, on hemodialysis TTS, admitted with volume overload, CP and SOB. CP. Currently slightly volume overloaded with pulmonary congestion but no resp distress. Electrolyte acceptable. no further episode of chest pain since admission. History of bilateral nephrectomy for retroperitoneal bleed with polycystic kidney size on 11/18/2021. As patient became anuric after nephrectomy, volume status became somewhat difficult to manage causing some volume overloaded. Historically he always had high weight gain and chronic volume overload. Had dialysis on Tuesday and according to the patient had 4 L of UF. Probably need to decrease estimated dry weight. --plan for extra hemodialysis treatment today, aim for 3 L UF , EDW to 109 kg , OK to be DC after dialysis, next HD tomorrow at out pt unit. --continue on renal cap and Velphoro with meals --continue on renal diet, dose medications for GFR less than 10 --will give SATINDER with HD today. Will follow Admission and Anticipated Discharge Date Admission Date: December 12, 2021 Subjective Ed was seen this morning, overall he feels well, denies any further episode of shortness of breath or chest pain. Blood pressure slightly elevated. electrolyte acceptable. Physical Exam Constitutional: WD/WN, vitals as above no acute distress Eyes: + anicteric sclerae Respiratory: no respiratory distress and no cough Auscultation: + crackles (at b/l bases) Cardiovascular: Rate/Rhythm: regular rate and regular rhythm Heart Sounds: normal S1 and normal S2 Extremities: + edema ( Trace bilateral lower extremity edema) Musculoskeletal: Extremities: extremities normal to inspection Skin: no rashes Neurologic: no focal motor deficits Psychiatric: Orientation: alert and oriented x 3 Results & Data ([facility]) Vital Signs (Past 12 Hours) Vital Signs Temp Pulse Pulse Pulse Resp BP Pulse Ox 12/14/21 10:25 37.1 C 68 12/14/21 09:46 75 12/14/21 07:40 37.0 C 78 19 167/93 H 94 12/14/21 03:27 36.5 C 75 12 162/92 H 93 12/14/21 02:40 76 12/13/21 23:48 36.8 C 75 12 148/89 H 95 PG Care Time/CCT Total # of Minutes Spent Total Time Spent with Patient: Total time spent is greater than 50% in coordination of care (as documented) at patient's floor/unit and/or counseling patient: Coding Level of Care Code 58141 Subseq Hosp Care Lvl 2 Diagnoses ESRD (end stage renal disease) on dialysis N18.6; Z99.2 Anemia of chronic disease D63.8 Chest pain R07.9 Chest pain type: unspecified Volume overload E87.79 Hypervolemia type: other (1) Chest pain Chest pain type: unspecified Qualified Code(s): R07.9 - Chest pain, unspecified (2) Volume overload Hypervolemia type: other Qualified Code(s): E87.79 - Other fluid overload
--- NOTE | 2021-12-14 14:28 | Discharge Summary ---
Date of Service December 14, 2021 Admission HPI Per Admitting Provider A 56-year-old male with past medical history significant for chronic polycystic kidney disease, status post bilateral nephrectomy done on 11/18/2021, end-stage renal disease on hemodialysis, history of coronary artery disease, status post CABG, hyperlipidemia, secondary hyperparathyroidism, superficial phlebitis, hypertension, obesity, inflammatory arthritis, anemia of chronic kidney disease, history of thrombocytopenia, history of lupus, history of gastric ulcer, history of syncope, history of COVID, presents with chest pain and shortness of breath. The patient states yesterday evening he felt left chest discomfort, dull aching pain, moderate in severity, no radiatio, took nitro which helped. He was also getting shortness of breath for the last 2 days. Last night he could not sleep because shortness of breath. Had dialysis today , but still has some shortness of breath . After dialysis again had chest pain dull aching and nitro helped with the pain .Because of ongoing symptoms, he came to the ER. His EKG showed some T-wave inversions in lateral leads. His troponin is unremarkable. Blood pressure is somewhat running on higher side. He is saturating okay on room air. Chest x-ray, possible pulmonary congestion. The patient says currently chest pain free. He says he has some cough. Denies any fever or chills. He has had some headache, after nitro, that got resolved. No blurred visions, no earache, no runny nose, no sore throat. Appetite is okay. No nausea, no vomiting, no abdominal pain. Normal bowel movements, no blood in stool or black stool. He does not make any urine since his nephrectomy. He has some swelling in the legs. Ambulates without any support. Principal Diagnosis Volume Overload ESRD History of bilateral nephrectomy Poorly controlled HTN Discharge Exam Appears well Breathing comfortably on room air, no wheezing/rhonchi Regular rate and rhythm No lower extremity edema Discharge Data Allergies Allergy/AdvReac Type Severity Reaction Status Date / Time hydralazine AdvReac Intermediate Joint Verified 12/12/21 16:13 stiffness Consultations 12/12/21 16:17 ED Decision to Admit Stat 12/12/21 18:59 Consult Nephrology Routine 12/13/21 08:00 Consult Cardiology Routine Hospital Course Patient is a 56 year old man with history of polycystic kidney disease with recent bilateral nephrectomy who has ESRD on dialysis (TThSat), history also of CAD with history of CABG, and hypertension. He was admitted 12/12 for chest discomfort and was found on CXR to have volume overload. He did not require oxygen supplementation. He was ruled out for ACS with negative serial troponin and his TTE was unremarkable. He was seen by Nephrology and had an extra dialysis session on 12/14. He will continue on his regular dialysis schedule () and his dry weight needs to be adjusted to account for recent bilateral nephrectomy. He was started on losartan 50mg daily for poorly controlled HTN and should follow up with his [employer] for further management. Total Time Total Time Spent Total Time Spent (In Minutes): 35 Discharge Plan Discharge Items Patient Disposition: Home - Self-Care Reason For Visit: CHEST PAIN Discharge Diagnosis: Volume overload state Poorly controlled hypertension Condition on Discharge: Good Activity: Resume your previous activity Non-emergency contact: Primary Care Provider and Specialist Call non-emergency contact if: you have any medication questions and your symptoms worsen Follow-up/Referrals: Artie Chaves MD [Primary Care Provider] - (Date & Time 12/18/2021 12:00 PM Provider Artie Chaves MD Department General Internal Medicine [facility] ) Herminio Abraham [Physician Staff Educator] - (Date & Time 12/17/2021 3:00 PM Provider Herminio Abraham PA-C Department Cardiology, [facility] ) Diet: Dialysis Renal Fluids: 1200ml (5 cups) Addtl Attending Provider Instructions: You were admitted for chest discomfort and shortness of breath You were found to be volume overloaded You received an extra day of dialysis on 12/14 and can resume your regular dialysis on 12/15 Please stick with a kidney/dialysis diet and drink no more than 1200 mL (5 cups) of fluid a day You were started on losartan here for your blood pressure. Please follow up with your doctor for further management Pending Studies at Discharge: No Stand-Alone Forms: [employer], Smoking Cessation Medications and DC Order Prescriptions: New losartan 50 mg Tablet 50 mg PO QAM 30 Days Qty: 30 RF: 1 Continued loratadine 10 mg Tablet 10 mg PO QAM PRN (Reason: Allergy Symptoms) RF: 0 omega 6-ltx-gbk-fish oil [Fish Oil] 1,000 mg (120 mg-180 mg) Capsule 1 cap PO QAM RF: 0 carvedilol [Coreg] 25 mg Tablet 50 mg PO BID RF: 0 nitroglycerin [Nitrostat] 0.4 mg Tablet, Sublingual 1 dose Sublingual DIRECTED PRN (Reason: Chest Pain) RF: 0 cholecalciferol (vitamin D3) [Vitamin D3] 1,000 unit Capsule 1,000 unit PO QAM RF: 0 acetaminophen [Tylenol Extra Strength] 500 mg Tablet 1,000 mg PO Q8H PRN (Reason: Pain) RF: 0 Velphoro 500 mg tablet,chewable 1,000 mg PO TIDM RF: 0 calcitriol 0.25 mcg Capsule 0.25 mcg PO 3XWK RF: 0 aspirin [Aspirin Low Dose] 81 mg tablet,delayed release (DR/EC) 81 mg PO DAILY RF: 0 ezetimibe 10 mg tablet 10 mg PO Q OTHER DAY RF: 0 amlodipine [Norvasc] 5 mg tablet 10 mg PO QAM RF: 0 rosuvastatin 10 mg tablet 10 mg PO DAILY RF: 0 Discharge Orders: Discharge Order (Routine); Ordered 12/14/21 Ordered By: Jazmin Olivas/Other Patient Handouts: Kidney Disease Fluid Intake Admission Data Admit Date/Time: 12/12/21 17:35 Attending Provider: Jazmin Bunch Admit Provider: Clayton Prince Primary Care Provider: Artie Chaves Other Providers: Clayton Prince ; Porsha Mitchell ; Jace Steward
[2021-12-15] MEDS ORDERED: CALCITRIOL 0.25 MCG CAPSULE PO SCH (09:00)
== END 2021-12-14 16:23 | disposition home or self-care (01) | DRG 682 ==
LOC: ED 14:45 → 2E 17:35 → SUATTDRO 17:35 → 2E 18:29
DX: E78.5 Hyperlipidemia, unspecified; J90 Pleural effusion, not elsewhere classified; I25.119 Atherosclerotic heart disease of native coronary artery with unspecified angina pectoris; D63.1 Anemia in chronic kidney disease; N18.6 End stage renal disease; I12.0 Hypertensive chronic kidney disease with stage 5 chronic kidney disease or end stage renal disease; E87.79 Other fluid overload; Z83.3 Family history of diabetes mellitus; Z86.16 Personal history of COVID-19; N25.81 Secondary hyperparathyroidism of renal origin; Z90.5 Acquired absence of kidney; Z79.82 Long term (current) use of aspirin; I50.33 Acute on chronic diastolic (congestive) heart failure; Z99.2 Dependence on renal dialysis; Z88.8 Allergy status to other drugs, medicaments and biological substances; Z95.1 Presence of aortocoronary bypass graft